=== PATIENT | female | born 1955 | race Caucasian/White ===

== ENCOUNTER → 2020-08-11 09:51 | Outpatient (BNVA) | payer OTHER, SELFPAY | PROVIDERS: PCP Nurse Practitioner Family; Visit Provider Nurse Practitioner Family | DX: I11.9 Hypertensive heart disease without heart failure (principal); R63.5 Abnormal weight gain; E66.01 Morbid (severe) obesity due to excess calories; Z68.42 Body mass index [BMI] 45.0-49.9, adult; I48.0 Paroxysmal atrial fibrillation; I70.0 Atherosclerosis of aorta; Z79.899 Other long term (current) drug therapy | CPT/HCPCS: 93005 ==

== ENCOUNTER 2020-09-21 10:37 | Outpatient (REF) | payer OTHER, SELFPAY ==
[2020-09-21 12:38] LABS: MANUAL DIFF FLAG NO
[2020-09-21 12:39] LABS: Basophils Percent Auto 0.6 % (0-2); Eosinophils Absolute Auto 0.1 X10*3/uL (0.0-0.4); Eosinophils Percent Auto 1.9 % (0-4); Hematocrit 42.4 % (37-47); Hemoglobin 14.3 g/dl (12.0-16.0); Imm Gran Abs Auto 0.02 X10*3/uL (0.00-0.03); Imm Gran Pct Auto 0.3 % (0.0-0.4); Lymphocytes Absolute Auto 1.9 X10*3/uL (1.2-4.9); Lymphocytes Percent Auto 25.8 % (20-40); Mean Corpuscular HGB Conc 33.7 g/dl (31.0-35.0); Mean Corpuscular Hemoglobin 29.9 pg (27.0-33.0); Mean Corpuscular Volume 88.5 fL (80-98); Mean Platelet Volume 10.9 fL (9.4-12.3); Monocytes Absolute Auto 0.6 X10*3/uL (0.1-1.2); Monocytes Percent Auto 8.5 % (2-11); Neutrophils Absolute Auto 4.6 X10*3/uL (2.0-8.3); Neutrophils Percent Auto 62.9 % (45-73); Platelet Count 230 X10*3/uL (160-400); Red Blood Count 4.79 X10*6/uL (4.20-5.50); Red Cell Distribution Width 12.5 % (11.0-16.0); White Blood Count 7.3 X10*3/uL (4.8-10.8)
[2020-09-21 13:53] LABS: Erythrocyte Sedimentation Rate 16 MM/HR (0-20)
== END 2020-09-21 10:38 | disposition home or self-care (01) ==
LOC: HO.LAB 10:37
PROVIDERS: PCP Nurse Practitioner Family; Visit Provider Hospitalist
DX: R06.00 Dyspnea, unspecified (principal)
CPT/HCPCS: 36415; 82785; 85025; 85652; 86003

== ENCOUNTER → 2020-10-07 13:18 | Outpatient (BNVA) | payer OTHER, SELFPAY | PROVIDERS: PCP Nurse Practitioner Family; Visit Provider Physician Assistant Medical | DX: Z76.89 Persons encountering health services in other specified circumstances (principal) | CPT/HCPCS: G0296 ==

== ENCOUNTER 2020-10-27 09:46 | Outpatient (REF) | payer OTHER, SELFPAY ==
--- NOTE | 2020-10-27 11:45 | PFT_ITS ---
Forced vital capacity, FEV1, [id number], and MVV are all normal. Post bronchodilator therapy, no significant change except for increased response to [id number]. Total lung capacity and residual volume normal. Diffusion capacity normal. CONCLUSION: Normal pulmonary function test. MD DANICA Millard/MODL / [id number]
== END 2020-10-27 09:47 | disposition home or self-care (01) ==
LOC: HO.RESP 09:46
PROVIDERS: Visit Provider Hospitalist
DX: R06.00 Dyspnea, unspecified (principal)
CPT/HCPCS: 94060; 94727; 94729

== ENCOUNTER 2020-10-31 07:20 | Outpatient (REF) | payer OTHER, SELFPAY ==
--- NOTE | ~2020-10-31 | CT_ITS ---
EXAMINATION: CT CHEST SCREENING CLINICAL INDICATION: Smoker. COMPARISON: None. TECHNIQUE: Multidetector volumetric CT imaging of the chest is performed without contrast using low-dose technique. Additional 2-D coronal and sagittal reformatted images and axial 3-D maximum intensity projection (MIP) images are generated on the CT workstation. This CT examination was performed using dose optimization techniques as appropriate, variously including the following: *Automated exposure control *Adjustment of mA and/or kV according to patient size (this includes techniques or standardized protocols for targeted exams where dose is matched to indication/reason for exam; i.e. extremities or head) *Use of iterative reconstruction technique DLP: 101 mGy-cm FINDINGS: LUNGS: The lungs are well expanded and clear of acute pneumonic consolidation. There is plate-like atelectasis in the superior segment of the left lower lobe. There is a 3 mm nodule adjacent to the major fissure in the right middle lobe on sagittal image 84/112, a 2 mm nodule right middle lobe axial image 257/6. MEDIASTINUM: The thyroid lobes are symmetrically normal. The central trachea and the bronchi are widely patent. The heart size and the great vessels are normal caliber. No abnormal size mediastinal lymph nodes seen. There is no pericardial effusion. PLEURA: There is no pleural effusion. No pleural mass or thickening. AXILLA: No lymphadenopathy. UPPER ABDOMEN: The visualized liver, spleen, pancreas, and adrenal glands are unremarkable. The gallbladder has been surgically removed. OSSEOUS STRUCTURES: There is mild spondylosis mid and lower dorsal spine. No lytic process. CT/CT lung screening IMPRESSION: Expanded lungs with at least 2 nodules seen in the right lower lobe and right middle lobe. ASSESSMENT: Lung-RADS category 2, Benign. RECOMMENDATION: Low-dose annual CT chest.
== END 2020-10-31 07:21 | disposition home or self-care (01) ==
LOC: HO.CT 07:20
PROVIDERS: Visit Provider Physician Assistant Medical
DX: Z12.2 Encounter for screening for malignant neoplasm of respiratory organs (principal); R91.8 Other nonspecific abnormal finding of lung field; Z87.891 Personal history of nicotine dependence
CPT/HCPCS: 71271

== ENCOUNTER 2021-06-28 08:50 | Emergency (ER) | payer OTHER, SELFPAY ==
--- NOTE | 2021-06-28 | ECG_ITS ---
Test Reason : CP Blood Pressure : / mmHG Vent. Rate : 071 BPM Atrial Rate : 071 BPM P-R Int : 148 ms QRS Dur : 072 ms QT Int : 390 ms P-R-T Axes : 044 -01 043 degrees QTc Int : 423 ms Normal sinus rhythm Low voltage QRS Possible Inferior infarct (cited on or before 08-MAY-2019) Cannot rule out Anteroseptal infarct (cited on or before 08-MAY-2019) Abnormal ECG When compared with ECG of 08-MAY-2019 17:06, No significant change was found Referred By: Generic ED Physician Electronically Signed By:MCKENNA MARES
--- NOTE | ~2021-06-28 | CT_ITS ---
EXAMINATION: CT ANGIOGRAM OF THE CHEST WITH AND WITHOUT CONTRAST (CT PULMONARY ANGIOGRAM FOR PE) CLINICAL INFORMATION: Pleuritic chest pain. Evaluate for a pulmonary embolism. COMPARISON: Chest radiograph done earlier the same day. CT chest dated 10/31/2020. TECHNIQUE: Prior to contrast administration, noncontrast localization images were obtained. Subsequently, multidetector volumetric imaging was performed from the thoracic inlet to below the diaphragms following the administration of 71 mL Omnipaque 350 intravenous contrast. No contrast reaction reported Sagittal, coronal, and MIP oblique sagittal reformatted images were obtained on the CT workstation, uploaded to PACS, and reviewed. This CT examination was performed using dose optimization techniques as appropriate, variously including the following: *Automated exposure control *Adjustment of mA and/or kV according to patient size (this includes techniques or standardized protocols for targeted exams where dose is matched to indication/reason for exam; i.e. extremities or head) *Use of iterative reconstruction technique Total exam dose-length product 555 mGy-cm FINDINGS: QUALITY OF STUDY/CONTRAST BOLUS: Satisfactory. PULMONARY ARTERIES: No central or segmental pulmonary emboli. THORACIC AORTA: No aneurysm or dissection. LUNG: Hypoinflation of the lungs with bilateral atelectasis. Stable linear scarring versus atelectasis within the posterior left lower lobe. No new large pulmonary nodule, mass, or airspace consolidation. PLEURA: No pleural effusion or pneumothorax. MEDIASTINUM: Normal heart size. No pericardial effusion. No hilar or mediastinal lymphadenopathy. No evidence of septal bowing or right heart strain. CHEST WALL/AXILLA: No axillary or internal mammary lymphadenopathy. OSSEOUS STRUCTURES: No acute or suspicious osseous abnormality. UPPER ABDOMEN: Status post cholecystectomy. Otherwise, the visualized upper abdominal structures are unremarkable. No reflux of contrast into the hepatic veins to suggest elevated right heart pressures. CT/CT angio chest PE protocol IMPRESSION: 1. No CT angiographic evidence of acute pulmonary embolism. 2. No new pulmonary nodule, mass, or airspace consolidation. Continued follow up as per screening criteria. 3. No lymphadenopathy. VTE: Negative.
--- NOTE | ~2021-06-28 | XR_ITS ---
EXAMINATION: XR CHEST CLINICAL INFORMATION: Posterior chest wall pain. COMPARISON: Most recent CT chest dated 10/31/2020 TECHNIQUE: Frontal view of the chest was obtained. FINDINGS: The lungs are clear. The cardiomediastinal silhouette is normal in size. There is no pleural effusion or pneumothorax. No acute osseous abnormality. XR/XR chest 1V IMPRESSION: No acute cardiopulmonary findings.
[2021-06-28 09:40] VITALS: BP 155/84; PULSE 71; RESP 16; TEMP 36.6; O2SAT 98; BMI 46.3
[2021-06-28 10:34] VITALS: BP 196/71; PULSE 65; RESP 10; O2SAT 98
[2021-06-28 11:00] LABS: MANUAL DIFF FLAG NO
[2021-06-28 11:01] LABS: Basophils Percent Auto 0.5 % (0-2); Eosinophils Absolute Auto 0.2 X10*3/uL (0.0-0.4); Eosinophils Percent Auto 2.5 % (0-4); Hemoglobin 14.8 g/dl (12.0-16.0); Imm Gran Abs Auto 0.02 X10*3/uL (0.00-0.03); Imm Gran Pct Auto 0.3 % (0.0-0.4); Lymphocytes Absolute Auto 1.9 X10*3/uL (1.2-4.9); Lymphocytes Percent Auto 31.8 % (20-40); Mean Corpuscular HGB Conc 34.4 g/dl (31.0-35.0); Mean Platelet Volume 10.4 fL (9.4-12.3); Monocytes Absolute Auto 0.4 X10*3/uL (0.1-1.2); Monocytes Percent Auto 6.5 % (2-11); Neutrophils Absolute Auto 3.5 X10*3/uL (2.0-8.3); Neutrophils Percent Auto 58.4 % (45-73); Platelet Count 208 X10*3/uL (160-400); Red Blood Count 4.94 X10*6/uL (4.20-5.50); Red Cell Distribution Width 12.8 % (11.0-16.0)
--- NOTE | 2021-06-28 11:06 | ED.CHESTPAIN ---
HPI - Chest Pain General Chief Complaint: Chest Pain Stated Complaint: chest pain Time Seen by Provider: 06/28/21 11:06 Source: patient Mode of arrival: ambulatory Limitations: no limitations History of Present Illness HPI narrative: Patient with upper left chest pain with deep inspiration. She became diahoretic. Patient has pain to left upper back with deep inspiration, She has a history of Atrial fibrillation on xarelto. Patient had echo and nuclear stress all told that she is normal MD complaint: other (pleuritic back pain) Onset (ago): hour(s) Timing of current episode: constant Prior episodes: No Onset: during rest Pain location: other (left back) Quality: sharp Related Data Home Medications Medication Instructions Recorded Confirmed escitalopram oxalate 20 mg tablet 20 mg PO DAILY 08/11/20 06/28/21 gabapentin 300 mg capsule 300 mg PO BEDTIME PRN 08/11/20 06/28/21 rivaroxaban 20 mg tablet 20 mg PO DAILY 08/11/20 06/28/21 cholecalciferol (vitamin D3) 250 250 mcg PO DAILY 09/21/20 06/28/21 mcg (10,000 unit) capsule multivitamin 1 tab PO DAILY 09/21/20 06/28/21 metoprolol succinate 25 mg 25 mg PO DAILY 06/28/21 06/28/21 tablet,extended release 24 hr Previous Rx's Medication Instructions Recorded levalbuterol tartrate 45 2 puff PO Q6H PRN 30 Days #15 g 10/27/20 mcg/actuation aerosol inhaler (Xopenex HFA) cyclobenzaprine 10 mg tablet 10 mg PO TID #10 tab 06/28/21 Allergies Allergy/AdvReac Type Severity Reaction Status Date / Time levofloxacin [From LEVAQUIN] Allergy Unknown SICK Verified 10/27/20 11:25 Review of Systems Constitutional: Constitutional: Reports no additional constitutional complaints Eyes: Eyes: Reports no additional eye complaints ENT: Denies dizziness Cardiovascular: Cardiovascular: Reports no additional cardiovascular complaints Respiratory: Respiratory: Reports as per HPI Gastrointestinal: Gastrointestinal: Reports no additional gastrointestinal complaints Genitourinary: Genitourinary: Reports no additional female genitourinary complaints Musculoskeletal: Musculoskeletal: Reports no additional musculoskeletal complaints Integumentary/Breasts: Skin/Breast: Denies rash Neurologic: Reports system reviewed and no additional complaints, except as documented, Denies dizziness and Denies Sensory deficit (Neuro) Psychiatric: Psychiatric: Denies anxiety [facility] Past Medical History Medical History Chronic allergic rhinitis Dyspnea HTN (hypertension) LVH (left ventricular hypertrophy) PAF (paroxysmal atrial fibrillation) Pulmonary nodules Smoking Thoracic aortic atherosclerosis Surgical History Hx of section Hx of cholecystectomy Hx of colonoscopy Family History Family History Father Sudden cardiac Mother Chronic a-fib Social History Social History Years Smoked: smokes marijuana, quit cigarettes former 1ppd smoker Advance Directives: No Physical Exam Vital Signs: Vital Signs: Last Vital Signs Temp 99.6 F 06/28/21 12:00 Pulse 61 06/28/21 12:00 Resp 16 06/28/21 12:00 BP 156/75 H 06/28/21 12:00 Pulse Ox 99 06/28/21 12:00 Body Mass Index 46.3 Const: General: healthy appearing Nutritional Appearance: obese Orientation/consciousness: oriented to person and patient oriented x3 Limitations: no limitations HENMT: Head: Yes normal to inspection Ears: external ears normal General nose exam: Normal external nose present Mouth: Normal oral and palatal mucosa present and oropharynx normal Throat: Yes posterior oropharynx normal Eyes: General: appearance normal, both eyes and all related structures Neck: Other: supple Neck: Yes normal visual inspection Chest: Chest palpation & inspection: normal inspection of the chest Resp: Auscultation: clear to auscultation bilaterally Cardio: Jugular venous distension: no JVD Rate: regular rate Rhythm: regular rhythm Heart sounds: S1 normal heart sound present and S2 normal heart sound present GI: Inspection: Yes normal to inspection Palpation (GI): Soft to palpation, nontender and No hepatosplenomegaly present Auscultation: normal bowel sounds : General: Yes no CVA tenderness Back/Spine/Pelvis: Back: no CVA tenderness Skin: General skin exam: no rashes or lesions noted Neuro: General: oriented to person and patient oriented x3 Cranial nerves: Yes CN's II-XII intact bilaterally Motor exam (neuro): 5/5 motor strength present throughout Sensory Exam: No Sensory deficit (Neuro) Extrem: General: Yes normal to inspection Psych: Appearance: grossly normal Course Reevaluation(s) Reevaluation #1: patient with upper right posterior back pain, EKG, CXR, CTA all negative will start patient on flexeril for muscular back pain Time: 13:34 MDM - Chest Pain Lab Data Result diagrams: 06/28/21 10:53 06/28/21 10:53 Labs: Lab Results 06/28/21 06/28/21 06/28/21 Range/Units 10:53 10:53 10:53 WBC 6.0 (4.8-10.8) X10*3/uL RBC 4.94 (4.20-5.50) X10*6/uL Hgb 14.8 (12.0-16.0) g/dl Hct 43.0 (37-47) % MCV 87.0 (80-98) fL MCH 30.0 (27.0-33.0) pg MCHC 34.4 (31.0-35.0) g/dl RDW 12.8 (11.0-16.0) % Plt Count 208 (160-400) X10*3/uL MPV 10.4 (9.4-12.3) fL Immature Gran % (Auto) 0.3 (0.0-0.4) % Neut % (Auto) 58.4 (45-73) % Lymph % (Auto) 31.8 (20-40) % [place] % (Auto) 6.5 (2-11) % Eos % (Auto) 2.5 (0-4) % Baso % (Auto) 0.5 (0-2) % Lymph # (Auto) 1.9 (1.2-4.9) X10*3/uL [place] # (Auto) 0.4 (0.1-1.2) X10*3/uL Eos # (Auto) 0.2 (0.0-0.4) X10*3/uL Baso # (Auto) 0.0 (0.0-0.2) X10*3/uL Abs Immat Gran (auto) 0.02 (0.00-0.03) X10*3/uL Absolute Neuts (auto) 3.5 (2.0-8.3) X10*3/uL Absolute Nucleated RBC 0.000 (0.0-0.012) X10*3/uL Nucleated RBC % (auto) 0.0 (0.0-0.2) /100WBC PT (9.9-13.0) SEC INR (0.9-1.1) Sodium 141 (135-145) mmol/L Potassium 5.1 (3.3-5.1) mmol/L Chloride 104 (96-108) mmol/L Carbon Dioxide 29 (22-29) mmol/L Anion Gap 13 (12-20) BUN 18 H (9-16) mg/dL Creatinine 0.84 (0.5-1.4) mg/dL Estim Creat Clear Calc 88.5 Estimated GFR > 60 Random Glucose 120 H (60-115) mg/dL Calcium 9.7 (8.4-10.2) mg/dL Troponin I High Sens (<3.5-17.0) ng/L COVID-19 (GURDEEP) Negative (Negative) COVID-19 Clin Com See Note 06/28/21 06/28/21 Range/Units 10:53 10:53 WBC (4.8-10.8) X10*3/uL RBC (4.20-5.50) X10*6/uL Hgb (12.0-16.0) g/dl Hct (37-47) % MCV (80-98) fL MCH (27.0-33.0) pg MCHC (31.0-35.0) g/dl RDW (11.0-16.0) % Plt Count (160-400) X10*3/uL MPV (9.4-12.3) fL Immature Gran % (Auto) (0.0-0.4) % Neut % (Auto) (45-73) % Lymph % (Auto) (20-40) % [place] % (Auto) (2-11) % Eos % (Auto) (0-4) % Baso % (Auto) (0-2) % Lymph # (Auto) (1.2-4.9) X10*3/uL [place] # (Auto) (0.1-1.2) X10*3/uL Eos # (Auto) (0.0-0.4) X10*3/uL Baso # (Auto) (0.0-0.2) X10*3/uL Abs Immat Gran (auto) (0.00-0.03) X10*3/uL Absolute Neuts (auto) (2.0-8.3) X10*3/uL Absolute Nucleated RBC (0.0-0.012) X10*3/uL Nucleated RBC % (auto) (0.0-0.2) /100WBC PT 11.5 (9.9-13.0) SEC INR 1.0 (0.9-1.1) Sodium (135-145) mmol/L Potassium (3.3-5.1) mmol/L Chloride (96-108) mmol/L Carbon Dioxide (22-29) mmol/L Anion Gap (12-20) BUN (9-16) mg/dL Creatinine (0.5-1.4) mg/dL Estim Creat Clear Calc Estimated GFR Random Glucose (60-115) mg/dL Calcium (8.4-10.2) mg/dL Troponin I High Sens 3.7 (<3.5-17.0) ng/L COVID-19 (GURDEEP) (Negative) COVID-19 Clin Com Imaging Data Chest x-ray: Radiologist's impression: FINDINGS: The lungs are clear. The cardiomediastinal silhouette is normal in size. There is no pleural effusion or pneumothorax. No acute osseous abnormality. XR/XR chest 1V IMPRESSION: No acute cardiopulmonary findings. Discharge Plan Discharge Clinical Impression: Atypical chest pain Back pain Qualifiers: Back pain location: thoracic back pain Chronicity: acute Back pain laterality: right Qualified Code(s): M54.6 - Pain in thoracic spine Patient Disposition: Home, Self-Care Instructions: Back Pain (ED), Noncardiac Chest Pain (ED) Prescriptions: New cyclobenzaprine 10 mg tablet 10 mg PO TID Qty: 10 RF: 0 No Action metoprolol succinate 25 mg tablet extended release 24 hr 25 mg PO DAILY RF: 0 cholecalciferol (vitamin D3) 250 mcg (10,000 unit) capsule 250 mcg PO DAILY RF: 0 multivitamin Tablet 1 tab PO DAILY RF: 0 levalbuterol tartrate [Xopenex HFA] 45 mcg/actuation HFA aerosol inhaler 2 puff PO Q6H PRN (Reason: shortness of breath or wheezing) 30 Days Qty: 15 RF: 11 Xarelto 20 mg tablet 20 mg PO DAILY RF: 0 gabapentin 300 mg capsule 300 mg PO BEDTIME PRN (Reason: Insomnia) RF: 0 escitalopram oxalate 20 mg tablet 20 mg PO DAILY RF: 0 Referrals: Melissa Chaney, TRACK VEHICLE REPAIRER [Primary Care Provider] - 1 week
[2021-06-28 11:07] LABS: Prothrombin Time 11.5 SEC (9.9-13.0)
[2021-06-28 11:17] LABS: COVID-19 Test Negative (Negative); IDNOW Serial# 9DD0AD1C
[2021-06-28 11:21] LABS: Anion Gap 13 (12-20); Blood Urea Nitrogen 18 mg/dL (9-16); Calcium 9.7 mg/dL (8.4-10.2); Carbon Dioxide 29 mmol/L (22-29); Chloride 104 mmol/L (96-108); Creatinine Clr Calc Pharmacy 88.5; Estimated Glomerular Filt Rate > 60; Glucose Random 120 mg/dL (60-115); Potassium 5.1 mmol/L (3.3-5.1); Sodium 141 mmol/L (135-145)
[2021-06-28 11:28] LABS: Troponin-I High Sensitivity 3.7 ng/L (<3.5-17.0)
[2021-06-28 12:00] VITALS: BP 156/75; PULSE 61; RESP 16; TEMP 37.6; O2SAT 99
[2021-06-28] MEDS: iohexoL 350 MG/ML 100 ML INFUS..BTL IV (12:05)
--- NOTE | 2021-06-28 13:22 | PHA.MEDREC ---
Pharmacy Consult ? Medication Reconciliation Pharmacy has completed the medication reconciliation. Patient report using gabapentin as needed for sleep, this was last filled in December. Pascale Heller, MyronD
== END 2021-06-28 13:54 | disposition home or self-care (01) ==
PROVIDERS: Emergency Provider Emergency Medicine; PCP Nurse Practitioner Family
DX: R07.89 Other chest pain (principal); M54.6 Pain in thoracic spine; I10 Essential (primary) hypertension; I48.0 Paroxysmal atrial fibrillation; Z79.01 Long term (current) use of anticoagulants; Z79.899 Other long term (current) drug therapy; Z20.822 Contact with and (suspected) exposure to COVID-19
CPT/HCPCS: 36415; 71045; 71275; 80048; 84484; 85025; 85610; 87635; 93005; 99284; Q9967

== ENCOUNTER → 2021-07-07 08:58 | Outpatient (BNVA) | payer OTHER, SELFPAY | PROVIDERS: PCP Nurse Practitioner Family; Visit Provider Hospitalist | DX: R06.00 Dyspnea, unspecified (principal); J45.909 Unspecified asthma, uncomplicated; F17.200 Nicotine dependence, unspecified, uncomplicated ==

== ENCOUNTER → 2021-08-10 08:46 | Outpatient (BNVA) | payer OTHER, SELFPAY | PROVIDERS: PCP Nurse Practitioner Family; Visit Provider Internal Medicine Cardiovascular Disease ==

== ENCOUNTER → 2021-11-14 09:00 | Outpatient (REF) | payer OTHER, SELFPAY ==
--- NOTE | 2021-11-14 09:03 | CA_ITS ---
Transthoracic Echocardiogram Patient (Last, First, Middle): Jocelyne, Gender: Female Date of : 1955 Age: 66 Procedure Date: 11/14/2021 Procedure Type: Transthoracic Echocardiogram Location: OP Height: 160.02 cm Weight: 129.28 kg BSA: 2.25 m2 Heart Rate: bpm BP: 120 / 80 mmHg Osteologist: Referring MD: Foster Nichole MD Symptoms: I48.0 - Paroxysmal atrial fibrillation Study Quality: Fair ECG Rhythm: Sinus Conclusions: - The left ventricular systolic function is normal. The calculated ejection fraction is 62% by biplane method. - E/E prime ratio is >15, consistent with elevated filling pressures. Evidence suggests grade I (mild) diastolic dysfunction. - There is mild calcification of the aortic valve. Findings Left Ventricle Normal left ventricular cavity size. There is mildly increased left ventricular wall thickness. The left ventricular systolic function is normal. The calculated ejection fraction is 62% by biplane method. There is no evidence of regional wall motion abnormalities. E/E prime ratio is >15, consistent with elevated filling pressures. Evidence suggests grade I (mild) diastolic dysfunction. Right Ventricle Normal right ventricular cavity size and systolic function. Atria Both atria are normal in size. Aortic Valve There is a normal trileaflet aortic valve. There is mild calcification of the aortic valve. There is no aortic valve stenosis. There is no aortic valve regurgitation. Mitral Valve There is mild anterior mitral leaflet thickening. There is no mitral valve regurgitation. There is no mitral valve stenosis. Pulmonic Valve The pulmonic valve was not well visualized. Tricuspid Valve The tricuspid valve was not well visualized. There is no tricuspid valve regurgitation. Tricuspid regurgitation envelope is inadequate for calculation of right ventricular systolic pressure. Great Vessels The aortic annulus, sinuses of valsalva, and asc aorta are normal in size. Venous The inferior vena cava is normal in size and collapses greater than 50% with inspiration. Pericardium/Pleural There is no evidence of pericardial effusion. Prior Study Comparison Changes noted compared to prior study dated: 12/10/2018. LV filling pressures higher. Measurements 2D Linear Measurements IVSd: 1.12 0.6-0.9/0.6-1.0 cm LVIDd: 5.16 3.9-5.3/4.2-5.9 cm LVIDd Index: 2.29 2.4-3.2/2.2-3.1 cm/m2 LVIDs: 3.04 2.0-3.6 cm LVPWd: 1.01 0.7-1.1 cm Ao Root: 3.40 2.1-3.5 cm LA Diam: 4.30 2.7-3.8/3.0-4.0 cm LAIDs Index: 1.91 1.5-2.3 cm/m2 LV Mass: 260.03 67-162/88-224 g LV Mass Index: 115.57 43-95/49-115 g/m2 LVOT Diam: 2.30 3.0+(-)1.3 cm 2D Systolic Function EF 4C: 56.10 >55% EF 2C: 67.40 >55% EF BiP: 61.80 >55% Mitral Valve MV Pk E: 0.75 MV PK A: 0.82 MV Decel Time: 257.00 E/A: 0.90 E'Lateral: 4.03 E'Medial: 4.57 E/E' Med: 16.30 E/E' Lat: 18.50 PHT: 75.00 MVA PHT: 2.93 Decel [place]: 2.90 Aortic Valve AoV Pk Sam: 1.27 AoV Mn Sam: 0.69 AoV VTI: 0.24 AoV Pk Grad: 6.00 Aov Mn Grad: 2.00 KOBI Cont.VTI: 3.36 LVOT LVOT Pk Sam: 0.77 LVOT Mn Sam: 0.54 LVOT VTI: 0.19 LVOT Pk Grad: 2.00 LVOT Mn Grad: 1.00 LVOT Diam: 2.30 LVOT Area: 4.15 Diastolic Function MV Pk E: 0.75 MV Pk A: 0.82 E/A: 0.90 E'Medial: 4.57 E/E' Med: 16.30 E' Laterial: 4.03 E/E' Lat: 18.50 Right Ventricle TAPSE (mm): 35.00 TVS' Sam: 14.00 Great Vessels Aorta Ao Root-2D: 3.40 2.0-3.7 cm Ao Asc: 3.40 2.1-3.4 cm Pulmonary Valve PV Pk Sam: 0.91 Peak PV Grad: 3.00 Updated in Other Vendor System with Status of Final Benny Carlson MD electronically signed on 11/14/2021 11:58:16 AM with status of Final
== END ==
LOC: HO.CARD 09:00
PROVIDERS: Visit Provider Internal Medicine Cardiovascular Disease
DX: I48.0 Paroxysmal atrial fibrillation (principal)
CPT/HCPCS: 93306

== ENCOUNTER → 2021-11-22 08:35 | Outpatient (BNVA) | payer OTHER, SELFPAY | PROVIDERS: PCP Nurse Practitioner Family; Visit Provider Internal Medicine Cardiovascular Disease ==

== ENCOUNTER 2022-06-13 09:39 | Outpatient (REF) | payer OTHER, SELFPAY ==
[2022-06-13 11:09] LABS: MANUAL DIFF FLAG NO
[2022-06-13 11:27] LABS: Basophils Absolute Auto 0.1 X10*3/uL (0.0-0.2); Basophils Percent Auto 0.7 % (0-2); Eosinophils Absolute Auto 0.1 X10*3/uL (0.0-0.4); Eosinophils Percent Auto 1.7 % (0-4); Hematocrit 42.8 % (37.0-47.0); Hemoglobin 14.6 g/dl (12.0-16.0); Imm Gran Abs Auto 0.02 X10*3/uL (0.00-0.03); Imm Gran Pct Auto 0.3 % (0.0-0.4); Lymphocytes Absolute Auto 1.8 X10*3/uL (1.2-4.9); Lymphocytes Percent Auto 26.7 % (20-40); Mean Corpuscular HGB Conc 34.1 g/dl (31.0-35.0); Mean Corpuscular Hemoglobin 29.8 pg (27.0-33.0); Mean Corpuscular Volume 87.3 fL (80.0-98.0); Monocytes Absolute Auto 0.4 X10*3/uL (0.1-1.2); Monocytes Percent Auto 5.1 % (2-11); Neutrophils Absolute Auto 4.5 x10*3/uL (2.0-8.3); Neutrophils Percent Auto 65.5 % (45-73); Platelet Count 246 X10*3/uL (160-400); Red Cell Distribution Width 12.7 % (11.0-16.0); White Blood Count 6.9 X10*3/uL (4.8-10.8)
== END 2022-06-13 09:40 | disposition home or self-care (01) ==
LOC: HO.HMGCLDS 09:39
PROVIDERS: PCP Nurse Practitioner Family; Visit Provider Nurse Practitioner Family
DX: H92.01 Otalgia, right ear (principal); R05.9 Cough, unspecified
CPT/HCPCS: 36415; 85025

== ENCOUNTER → 2022-06-27 09:03 | Outpatient (BNVA) | payer MEDICARE, SELFPAY | PROVIDERS: PCP Nurse Practitioner Family; Visit Provider Hospitalist | DX: R91.8 Other nonspecific abnormal finding of lung field (principal); R06.00 Dyspnea, unspecified; U09.9 Post COVID-19 condition, unspecified; J30.9 Allergic rhinitis, unspecified | CPT/HCPCS: 99212 ==

== ENCOUNTER 2022-07-17 12:55 | Outpatient (REF) | payer MEDICARE, SELFPAY ==
--- NOTE | ~2022-07-17 | CT_ITS ---
EXAMINATION: CT CHEST SCREENING CLINICAL INFORMATION: Former smoker. Quit 30 years ago. 30 pack year history. COMPARISON: Previous chest CT most recent June 2021 TECHNIQUE: Multidetector volumetric CT imaging of the chest is performed without contrast using low dose technique. Additional 2D coronal and sagittal reformatted images and axial 3D maximum intensity projection (MIP) images are generated on the CT workstation. This CT examination was performed using dose optimization techniques as appropriate, variously including the following: *Automated exposure control *Adjustment of mA and/or kV according to patient size (this includes techniques or standardized protocols for targeted exams where dose is matched to indication/reason for exam; i.e. extremities or head) *Use of iterative reconstruction technique DLP: 100 mGy-cm FINDINGS: LUNGS: There is elevation of the right hemidiaphragm. There is chronic scarring or subsegmental atelectasis in the left lower lobe that appears unchanged. There is a 3 mm right upper lobe nodule axial image 146 series 5. This is unchanged from June 2021 chest CTA axial image 105 series 7. Evaluation of the lung bases is limited due to respiratory motion artifact. There is question of 2 nodules at the right lung base questionable in the right middle lobe measuring approximately 2 and 4 mm axial image 243 series 5. These probably are seen chest CTA June 2021 axial image 176 series 7 and appear unchanged. MEDIASTINUM: The mediastinum is normal. CORONARY ARTERY CALCIFICATION: Mild PLEURA: There is no pleural effusion. No pleural mass or thickening. AXILLA: No lymphadenopathy. UPPER ABDOMEN: Enlarged fatty liver. Postcholecystectomy. OSSEOUS STRUCTURES: Degenerative changes of the spine. CT/CT lung screening IMPRESSION: Limited exam due to respiratory motion artifact. Stable small pulmonary nodules. Stable stable scarring or chronic subsegmental atelectasis in the left lower lobe. Mild coronary artery calcification. Elevated right hemidiaphragm. Enlarged fatty liver. ASSESSMENT: Lung-RADS category 2: Benign RECOMMENDATION: Annual low-dose chest CT follow-up recommended.
== END 2022-07-17 12:56 | disposition home or self-care (01) ==
LOC: HO.CT 12:55
PROVIDERS: Visit Provider Physician Assistant Medical
DX: Z12.2 Encounter for screening for malignant neoplasm of respiratory organs (principal); Z87.891 Personal history of nicotine dependence
CPT/HCPCS: 71271

== ENCOUNTER → 2023-01-18 09:16 | Outpatient (BNVA) | payer MEDICARE, SELFPAY | PROVIDERS: PCP Nurse Practitioner Family; Visit Provider Hospitalist | DX: R91.8 Other nonspecific abnormal finding of lung field (principal); J30.9 Allergic rhinitis, unspecified; R06.00 Dyspnea, unspecified | CPT/HCPCS: 99212 ==

== ENCOUNTER 2023-04-25 12:25 | Outpatient (AMB) | payer MEDICARE, SELFPAY ==
[2023-04-25 12:47] VITALS: BP 122/80; PULSE 70; BMI 49.2
--- NOTE | 2023-04-25 12:47 | A.OFFVIS_ITS ---
Intake Vital Signs 04/25/23 12:47 Height 5 ft 4 in Weight 286 lb 9.615 oz BMI 49.2 BP 122/80 Blood Pressure Location Lt brachial Position Sitting Pulse 70 Intake Visit Reasons: 1 year follow up Intake Note: 1 year follow-up with ekg feeling good Social Worker Assistant Required: No Allergies levofloxacin [From LEVAQUIN] Allergy (Severe, Verified 01/18/23 09:26) SICK Medication List - Last Reconciled 04/25/23 by Foster Nichole MD amoxicillin 1,000 mg PO BID cholecalciferol (vitamin D3) 125 mcg PO DAILY escitalopram oxalate 5 mg PO DAILY gabapentin mg PO lamotrigine 50 mg PO DAILY losartan 50 mg PO DAILY multivitamin 1 tab PO DAILY rivaroxaban 20 mg PO DAILY HPI HPI Comments History of Present Illness Details Jocelyne comes for follow-up. Patient has no recurrent episode of atrial fibrillation. Her blood pressures been very well controlled on current medical therapy. She says she has no new symptoms. Goes to gym on a regular basis. Denies any orthopnea, PND, leg edema. Echocardiogram had in the past showed LVH with diastolic dysfunction related hypertensive heart disease. 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 Pulmonary nodules Smoking Thoracic aortic atherosclerosis Surgical History Hx of section Hx of cholecystectomy Hx of colonoscopy Family History Father Sudden cardiac Mother Chronic a-fib Social History Patient Tobacco Use Status: Former Tobacco user Tobacco use type: Cigarette Years Smoked: smokes marijuana, quit cigarettes former 1ppd smoker-15 Years Review of Systems Const Denies chills, Denies fatigue, Denies fever(s), Denies frequent falls, Denies weakness, Denies weight gain and Denies weight loss ENT Denies dizziness Card Denies chest pain, Denies leg edema, Denies lightheadedness, Denies palpitations, Denies dyspnea, Denies dyspnea on exertion, Denies orthopnea and Denies other (loss of consciousness) Resp Denies cough, Denies dyspnea and Denies dyspnea on exertion GI Denies hematochezia and Denies change in stool character Musc Denies abnormal gait, Denies muscle weakness, Denies numbness, Denies radiating pain into limb and Denies tingling Neuro Denies abnormal gait, Denies dizziness, Denies frequent falls, Denies numbness, Denies tingling and Denies weakness Endo Denies fatigue and Denies palpitations Physical Exam Vital Signs: Last Vital Signs Pulse 70 04/25/23 12:47 BP 122/80 04/25/23 12:47 BMI result Body Mass Index 49.2 Const General: cooperative, comfortable and no acute distress Nutritional Appearance: obese morbidly obese Orientation/consciousness: patient oriented x3 Limitations: no limitations Neck Neck: Yes trachea midline, Yes supple and Yes no JVD Resp Effort & Inspection: normal respiratory effort Auscultation: clear to auscultation bilaterally, no crackles, no rales, no rhonchi and no wheezes Cardio Rate: regular rate Rhythm: regular rhythm Heart sounds: S1 normal heart sound present, S2 normal heart sound present, no gallops, no murmurs and no rubs GI Inspection: Yes normal to inspection Skin General skin exam: no rashes or lesions noted Neuro General: patient oriented x3 Extrem General: Yes normal to inspection, No no pedal edema and No calf tenderness Office Procedures EKG Details: EKG today shows normal sinus rhythm with low-voltage QRS with poor R-wave progression most likely due to body habitus [id number], Complete Assessment & Plan Assessment & Plan (1) PAF (paroxysmal atrial fibrillation): Code(s): I48.0 - Paroxysmal atrial fibrillation Plan: Highly symptomatic paroxysmal atrial fibrillation without any obvious clinical recurrence at this point time. She is currently not on any rate lowering or antiarrhythmic drug therapy. However she would benefit from rhythm control approach will continue to pursue rhythm control approach. Continue participate in risk factor modification including aggressive weight loss program as well as good control blood pressure. Blood pressure is currently well optimized. See below. Continue full oral anticoagulation, currently on Xarelto 20 mg daily. Semi annual renal function test should be pursued. (2) HTN (hypertension): Code(s): I10 - Essential (primary) hypertension Plan: Hypertension which has remained extremely well optimized on losartan therapy. Continue the same. Importance of good blood pressure control was discussed. She does have evidence of hypertensive heart disease but without any evidence of clinical congestive heart failure. Low-salt diet was discussed. Participate in regular physical activity and weight loss program. Will follow up in the clinic as need be as patient is moving away. Coding Level of Care Code Est Pt Level 4 (93104) Diagnoses PAF (paroxysmal atrial fibrillation) I48.0 HTN (hypertension) I10 CPT Codes EKG - CPT: [id number], Complete ([id number])
== END 2023-04-25 14:29 | disposition home or self-care (01) ==
PROVIDERS: PCP Nurse Practitioner Family; Referring Provider Nurse Practitioner Family; Visit Provider Internal Medicine Cardiovascular Disease
DX: I48.0 Paroxysmal atrial fibrillation (principal); I10 Essential (primary) hypertension
CPT/HCPCS: 93010; 99214

== ENCOUNTER → 2023-04-25 12:25 | Outpatient (BNVA) | payer MEDICARE, SELFPAY | PROVIDERS: PCP Nurse Practitioner Family; Referring Provider Nurse Practitioner Family; Visit Provider Internal Medicine Cardiovascular Disease | DX: I48.0 Paroxysmal atrial fibrillation (principal); I10 Essential (primary) hypertension | CPT/HCPCS: 93005; 99212 ==

== ENCOUNTER 2025-07-08 22:15 | Emergency (ER) | payer OTHER, SELFPAY ==
--- NOTE | 2025-07-08 | ECG_ITS ---
Test Reason : REPEAT ?AFIB Blood Pressure : */* mmHG Vent. Rate : 112 BPM Atrial Rate : 113 BPM P-R Int : 120 ms QRS Dur : 82 ms QT Int : 322 ms P-R-T Axes : * -8 109 degrees QTcB Int : 439 ms Sinus tachycardia Low voltage QRS Inferior infarct (cited on or before 08-May-2019) Cannot rule out Anteroseptal infarct (cited on or before 08-May-2019) Abnormal ECG When compared with ECG of 08-Jul-2025 22:19, Sinus rhythm has replaced Junctional rhythm Referred By: Generic ED Physician Electronically Signed By: Rao Juarez
--- NOTE | 2025-07-08 22:17 | ECG_ITS ---
Test Reason : ?AFIB Blood Pressure : */* mmHG Vent. Rate : 112 BPM Atrial Rate : * BPM P-R Int : * ms QRS Dur : 80 ms QT Int : 346 ms P-R-T Axes : * 12 91 degrees QTcB Int : 472 ms Accelerated Junctional rhythm with occasional Premature ventricular complexes Low voltage QRS Inferior infarct Cannot rule out Anteroseptal infarct Abnormal ECG When compared with ECG of 28-Jun-2021 08:57, Significant changes have occurred Referred By: Generic ED Physician Electronically Signed By: Rao Juarez
[2025-07-08 22:40] VITALS: BP 148/78; PULSE 85; RESP 12; TEMP 36.9; O2SAT 95; BMI 45.5
--- NOTE | 2025-07-08 22:52 | ED.ARRPALP ---
HPI - Arrhythmia/Palpitations General Chief Complaint: Arrhythmia/Palpitations Stated Complaint: afib. high bp Time Seen by Provider: 07/08/25 22:35 Source: patient Mode of arrival: ambulatory Limitations: no limitations History of Present Illness ED Provider: Dr. Stacia Velásquez HPI narrative: Patient comes to the emergency room complaining of feeling a lot of stress and palpitations that started a proximally 4 hours ago. Patient states that she has no shortness of breath or chest pain. Patient states that she has a weird sensation in her throat, not exactly pain. Patient states it started 24 hours after getting her flu shot. Patient denies fever chills. Patient tearful, states that she has been going through ?a lot? for the last 2 years. Patient tearful due to family problems, complaining that her family moved away from her and do not want to have any contact with her. Patient reports being compliant with propranolol and Xarelto for AFib. Related Data Home Medications ?Medication ?Instructions ?Recorded ?Confirmed rivaroxaban 20 mg tablet 20 mg PO DAILY 08/11/20 04/25/23 multivitamin 1 tab PO DAILY 09/21/20 04/25/23 cholecalciferol (vitamin D3) 125 125 mcg PO DAILY 06/27/22 04/25/23 mcg (5,000 unit) capsule amoxicillin 500 mg capsule 1,000 mg PO BID 01/18/23 04/25/23 gabapentin 300 mg capsule mg PO 01/18/23 04/25/23 lamotrigine 25 mg tablet 50 mg PO DAILY 01/18/23 04/25/23 losartan 50 mg tablet 50 mg PO DAILY 01/18/23 04/25/23 escitalopram oxalate 10 mg tablet 5 mg PO DAILY 04/25/23 04/25/23 Allergies Allergy/AdvReac Type Severity Reaction Status Date / Time levofloxacin (From LEVAQUIN) Allergy Severe SICK Verified 07/08/25 22:50 Review of Systems Review of Systems: Constitutional : No Weight loss, No Fever, No Chills, No Night Sweats, No Fatigue, No Malaise ENT/Mouth : No Hearing loss, No Ear Pain, No Nasal Congestion, No Sinus Pain, No Hoarseness, complaining of throat dryness without significant pain/ sore throat, No Rhinorrhea, No Swallowing Difficulty Eyes: No Eye Pain, No Swelling, No Redness, No Foreign Body, No Discharge, No Vision Changes Cardiovascular : No Chest Pain, No SOB, No Dyspnea on Exertion, No Orthopnea, No Edema, complaining of Palpitations Respiratory : No Cough, No Sputum, No Wheezing, No Smoke Exposure, No Dyspnea Gastrointestinal : No Nausea, No Vomiting, No Diarrhea, No Constipation, No abdominal Pain, No Hematochezia, No Melena Genitourinary : no irregular bleeding, No Dysuria, No Urinary Frequency, No Hematuria, No Urinary Incontinence, No Urgency, No Flank Pain, No Urinary Flow Changes, No Hesitancy Musculoskeletal : No joint pain, No Myalgias, No Joint Swelling Skin : No Skin Lesions, No rash Neuro : No Weakness, No Numbness, No Paresthesias, No Loss of Consciousness, No Dizziness, No Headache Psych : No Anxiety/Panic, No Depression, No SI/HI/AH/VH, No Social Issues, Heme/Lymph: No Bruising, No Bleeding,No Lymphadenopathy Endocrine : No Polyuria, No Polydipsia, No Temperature Intolerance PMFSH Past Medical History Medical History 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 Smoking Chronic allergic rhinitis Pulmonary nodules Dyspnea LVH (left ventricular hypertrophy) Thoracic aortic atherosclerosis PAF (paroxysmal atrial fibrillation) HTN (hypertension) Surgical History Hx of section Hx of cholecystectomy Hx of colonoscopy Family History Family History Father Sudden cardiac Mother Chronic a-fib Social History Social History Patient Tobacco Use Status: Former Tobacco user Tobacco use type: Cigarette Years Smoked: smokes marijuana, quit cigarettes former 1ppd smoker-15 Years Advance Directives: Yes Advance Directives Information Provided: Yes Advance Directives on File: No Do you have a plan to hurt others: No Plan Physical Exam Exam: Exam: Appearance: Alert. Oriented X3. No acute distress. Tearful Eyes: Pupils equal, round and reactive to light. ENT: Pharynx normal. Neck: Normal inspection. Neck supple. No lymph nodes noted. No crepitus CVS: Normal heart rate and rhythm. Pulses normal. Normal S1 and S2 Respiratory: No respiratory distress. Breath sounds normal. No Wheezing. No rales Abdomen: Soft and nontender. No rigidity. No distention. Skin: Skin warm and dry. Normal skin color. Normal skin turgor. Extremities: No lower extremity edema. No Lacerations. No Rash Neuro: Oriented X 3. No motor deficit. No sensory deficit. Moving all extremities. No slurred speech. CN 2 through 12 grossly intact Psych: calm, cooperative, a bit anxious, tearful, sharing her family problems Vital Signs: Vital Signs: Last Vital Signs Temp 98.4 F 07/08/25 22:40 Pulse 85 07/08/25 22:40 Resp 12 07/08/25 22:40 BP 148/78 H 07/08/25 22:40 Pulse Ox 95 07/08/25 22:40 O2 Del Method Room Air 07/08/25 22:40 BMI result Body Mass Index 45.5 Course Course Course Narrative: Patient comes to the emergency room complaining of anxiety, palpitations. Denies chest pain or shortness of breath. Patient started having slight throat discomfort, no pain, more like a dry sensation 24 hours after her flu shot. Denies URI symptoms Medications Administered Discontinued Medications Generic Name Dose Route Start Last Admin Trade Name Alexandre PRN Reason Stop Dose Admin Aspirin 325 mg 07/08/25 22:51 07/08/25 23:06 Aspirin Enteric Coated 325 Mg Tablet. PO 07/08/25 22:52 325 mg ONCE ONE Administration Lorazepam 1 mg 07/08/25 22:52 07/08/25 23:07 Lorazepam 1 Mg Tablet PO 07/08/25 22:53 1 mg ONCE ONE Administration Medical Decision Making Medical Decision Making [facility] Narrative: My interpretation of EKG: Atrial flutter, heart rate 112, no ST segment depression or elevation, no T-wave inversion, QTC 439. -of note, they kg was read twice as acute STEMI. However, I do not see a STEMI in the EKGs. I consulted Dr. Juarez from Cardiology, no STEMI -other than occasional palpitations, patient denies chest pain, heaviness or shortness of breath. Patient is prophylactically receiving a dose of aspirin and a dose of p.o. Ativan for anxiety All of patient's labs pending. I discussed the above-mentioned with the patient My interpretation of labs: No significant abnormality in patient's hematology or chemistry, troponin within normal limits, pro BNP 213, negative. Serology negative for COVID or influenza. After the above-mentioned medications, patient calm, cooperative, vitals stable, patient playing on her phone. Discussed with the patient that at 01:00, a proximally 2 hours after the initial blood drawn, she will need a repeat troponin level and EKG I was informed by the patient's nurse that the patient decided that she no longer wanted to wait , became upset for unclear reason, pt started walking out of the emergency room with her IV, needed to be stopped by security, patient got into an argument with security, beligerent with nursing staff, patient refused to wait to sign AMA papers. Patient's nurse and charge nurse were able to remove the IV was removed and patient left Differential Diagnosis Differential Diagnoses: The differential diagnosis associated with the presentation includes (Acute coronary syndrome, Atypical chest pain, atrial flutter, atrial fibrillation) Admission/Observation Consideration of admission/observation: Escalation of care including admission/observation considered (Given patient's age, symptoms and past medical history observation was considered) Lab Data MDM Lab Attestation statement: I reviewed the patient's lab results. 07/08/25 22:56 07/08/25 22:56 Labs: Lab Results 07/08/25 Range/Units 22:56 WBC 7.4 (4.8-10.8) X10*3/uL RBC 5.01 (4.20-5.50) X10*6/uL Hgb 15.1 (12.0-16.0) g/dl Hct 42.8 (37.0-47.0) % MCV 85.4 (80.0-98.0) fL MCH 30.1 (27.0-33.0) pg MCHC 35.3 H (31.0-35.0) g/dl RDW 12.1 (11.0-16.0) % Plt Count 231 (160-400) X10*3/uL MPV 10.3 (9.4-12.3) fL Immature Gran % (Auto) 0.3 (0.0-0.4) % Neut % (Auto) 51.5 (45-73) % Lymph % (Auto) 35.7 (20-40) % [place] % (Auto) 9.0 (2-11) % Eos % (Auto) 3.0 (0-4) % Baso % (Auto) 0.5 (0-2) % Lymph # (Auto) 2.7 (1.2-4.9) X10*3/uL [place] # (Auto) 0.7 (0.1-1.2) X10*3/uL Eos # (Auto) 0.2 (0.0-0.4) X10*3/uL Baso # (Auto) 0.0 (0.0-0.2) X10*3/uL Abs Immat Gran (auto) 0.02 (0.00-0.03) X10*3/uL Absolute Neuts (auto) 3.8 (2.0-8.3) x10*3/uL Absolute Nucleated RBC 0.000 (0.0-0.012) X10*3/uL Nucleated RBC % (auto) 0.0 (0.0-0.2) /100WBC Sodium 143 (135-145) mmol/L Potassium 3.6 (3.3-5.1) mmol/L Chloride 108 (96-108) mmol/L Carbon Dioxide 26 (22-29) mmol/L Anion Gap 13 (12-20) BUN 17 H (9-16) mg/dL Creatinine 0.94 (0.5-1.4) mg/dL Estim Creat Clear Calc 73.2 Estimated GFR 59 Random Glucose 114 (60-115) mg/dL Calcium 9.4 (8.4-10.2) mg/dL Magnesium 2.0 (1.6-2.6) mg/dL Total Bilirubin 0.4 (0.0-1.0) mg/dL Direct Bilirubin 0.1 (0.0-0.5) mg/dL AST 24 (5-31) U/L ALT 23 (0-31) U/L Alkaline Phosphatase 95 (39-117) U/L Troponin I High Sens < 2.7 (<3.5-17.0) ng/L NT-Pro-B Natriuret Pep 213.4 (<300) pg/mL Total Protein 6.9 (6.5-8.0) g/dL Albumin 4.0 (3.5-5.0) g/dL COVID-19 (GURDEEP) Negative (Negative) COVID-19 Clin Com See Note Influenza Type A (LEX) Negative (Negative) Influenza Type B (LEX) Negative (Negative) Influenza A & B Note See Note Independent Interpretation I performed an independent interpretation of an: EKG Critical Care Time Critical Care Time Critical Care Time: Yes Total Critical Care Time: 40 Attestation: I have personally provided critical care time. Time includes review of lab data, radiology results, discussion with consultants, and monitoring for potential decompensation. Intervention performed as documented. Discharge Plan Discharge Clinical Impression: Chest pain, Anxiety Prescriptions: No Action multivitamin Tablet 1 tab PO DAILY Xarelto 20 mg tablet 20 mg PO DAILY cholecalciferol (vitamin D3) 125 mcg (5,000 unit) capsule 125 mcg PO DAILY amoxicillin 500 mg capsule 1,000 mg PO BID lamotrigine 25 mg tablet 50 mg PO DAILY losartan 50 mg tablet 50 mg PO DAILY gabapentin 300 mg capsule PO escitalopram oxalate 10 mg tablet 5 mg PO DAILY Print Language: Sinhala
[2025-07-08] MEDS: Aspirin Enteric Coated 325 MG TABLET.DR PO (23:06)
[2025-07-08 23:13] LABS: Hematocrit 42.8 % (37.0-47.0); Hemoglobin 15.1 g/dl (12.0-16.0); Imm Gran Abs Auto 0.02 X10*3/uL (0.00-0.03); Imm Gran Pct Auto 0.3 % (0.0-0.4); Lymphocytes Absolute Auto 2.7 X10*3/uL (1.2-4.9); MANUAL DIFF FLAG NO; Mean Corpuscular HGB Conc 35.3 g/dl (31.0-35.0); Mean Corpuscular Hemoglobin 30.1 pg (27.0-33.0); Mean Corpuscular Volume 85.4 fL (80.0-98.0); NRBC Abs Auto 0.000 X10*3/uL (0.0-0.012); NRBC Pct Auto 0.0 /100WBC (0.0-0.2); Platelet Count 231 X10*3/uL (160-400); Red Blood Count 5.01 X10*6/uL (4.20-5.50); White Blood Count 7.4 X10*3/uL (4.8-10.8)
[2025-07-08 23:26] LABS: COVID-19 Test Negative (Negative); IDNOW Serial# 55D5AD1C; IDNOW Serial# 58CA691E; Influenza B2 Negative (Negative)
[2025-07-08 23:27] LABS: Alanine Aminotransferase 23 U/L (0-31); Albumin Level 4.0 g/dL (3.5-5.0); Alkaline Phosphatase 95 U/L (39-117); Anion Gap 13 (12-20); Aspartate Amino Transferase 24 U/L (5-31); Blood Urea Nitrogen 17 mg/dL (9-16); Calcium 9.4 mg/dL (8.4-10.2); Carbon Dioxide 26 mmol/L (22-29); Chloride 108 mmol/L (96-108); Creatinine Clr Calc Pharmacy 73.2; Estimated Glomerular Filt Rate 59; Magnesium 2.0 mg/dL (1.6-2.6); Potassium 3.6 mmol/L (3.3-5.1); Sodium 143 mmol/L (135-145); Total Protein 6.9 g/dL (6.5-8.0)
[2025-07-08 23:36] LABS: Troponin-I High Sensitivity < 2.7 ng/L (<3.5-17.0)
[2025-07-09] VITALS: BP 145/71; PULSE 85; RESP 14; TEMP 36.7
[2025-07-09 00:32] LABS: NT Pro B Type Natriuretic Pept 213.4 pg/mL (<300)
--- NOTE | 2025-07-09 00:45 | PC.NURSE ---
pt refuses to let this RN draw 2nd trop or do strept swab when asked. pt stated james been here for 2 hours already and i am leaving. pt refuses to let me remove her iv at this time. pt stated my sister can do it she is a nurse i attempted to explain that she can not leave with an iv placed in the ER. pt started walking toward door. Notified my charge nurse of all information and began to speak with pt. in hallway of department at this time
--- NOTE | 2025-07-09 00:59 | PC.NURSE ---
credit charge authorizer made aware by primary rn that the patient was trying to leave the department when made aware of plan for 2nd/repeat troponin level. The pt was found to be ambulating freely near/around room 20/21 fully dressed stating that she was going to leave. the patient confirmed that she had a IV in place and was looking to leave. The pt was previously educated on the need for a repeat troponin level s/t her reason for the visit but declined. IV line was to the right AC was noted, pt reluctantly allowed this RN to remove the IV at which time she was noted to be rude, have an attitude, and throw her items down on the counter while using offensive/foul language. The pt threatened to take out her own IV numerous times while awaiting this RN to obtain the necessary supplies. IV line ultimately was removed with catheter tip in tact, pt was observed to independently ambulate out of the ed with even/steady gait and no distress noted.
== END 2025-07-09 01:01 | disposition left against medical advice (07) ==
PROVIDERS: Emergency Provider Emergency Medicine
DX: R07.9 Chest pain, unspecified (principal); I10 Essential (primary) hypertension; F41.9 Anxiety disorder, unspecified; I48.0 Paroxysmal atrial fibrillation
CPT/HCPCS: 80048; 80076; 83735; 83880; 84484; 85025; 87502; 87635; 93005; 99283; 99284

== ENCOUNTER → 2025-07-08 22:17 | Outpatient (BNV) | payer OTHER, SELFPAY | PROVIDERS: Emergency Provider Emergency Medicine; Visit Provider Internal Medicine Cardiovascular Disease | DX: I49.3 Ventricular premature depolarization (principal); R00.0 Tachycardia, unspecified; I25.2 Old myocardial infarction | CPT/HCPCS: 93010 ==

== ENCOUNTER 2025-07-13 13:31 | Outpatient (AMB) | payer OTHER, SELFPAY ==
--- NOTE | 2025-07-13 13:58 | MHC.OFFVIS ---
Vital Signs 07/13/25 13:59 Height 5 ft 4 in Weight 257 lb 0.944 oz BMI 44.1 BP 126/58 L Blood Pressure Location Lt brachial Pulse 86 Pulse Source Monitor Intake Visit Reasons: f/u need sooner appt has been ed bp up Institution Director Required: No Accompanied by: Spouse Allergies levofloxacin (From LEVAQUIN) Allergy (Severe, Verified 07/13/25 14:03) SICK Medication List - Last Reconciled 07/13/25 by Juan C Clarke NP bupropion HCl XL (Wellbutrin XL) 300 mg PO QAM cholecalciferol (vitamin D3) 125 mcg PO DAILY lamotrigine 50 mg PO DAILY losartan 50 mg PO DAILY multivitamin 1 tab PO DAILY propranolol 10 mg PO BID rivaroxaban 20 mg PO DAILY HPI Comments Details: This is a 70-year-old female patient who is coming in for a hospital discharge follow-up accompanied by her . Patient with a history of paroxysmal AFib and hypertension. Patient was previously following our office with Dr. Nichole and then moved to [place] but has now moved back to the area and would like to continue with our care. Patient last saw our office back in April of 2023 at which time patient was doing well. Patient is teary eyed and states that she is in a lot of stress from moving back to the area as they are in the process of looking for a home. There has been in between hotels and staying with a friend for the last 5 weeks and has been under a lot of stress due to this. Patient was recently seen in the emergency room for palpitations by bong MOSQUERA. Today, patient reports that she has been very anxious about her heart as patient's heart rate previously worse between 50-60 and now is more so in the 80s to 90s. Patient is otherwise denying any exertional chest pain, shortness of breath, dizziness, orthopnea, PND, leg edema, presyncope or syncope. Patient is reporting compliance with all her medications. 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 Smoking Chronic allergic rhinitis Pulmonary nodules Dyspnea LVH (left ventricular hypertrophy) Thoracic aortic atherosclerosis PAF (paroxysmal atrial fibrillation) HTN (hypertension) Surgical History ELECTRONIC) Hx of colonoscopy Hx of cholecystectomy Hx of section Family History Father Sudden cardiac Mother Chronic a-fib Social History Patient Tobacco Use Status: Former Tobacco user Tobacco use type: Cigarette Years Smoked: smokes marijuana, quit cigarettes former 1ppd smoker-15 Years Review of Systems Const Denies daytime sleepiness, Denies difficulty sleeping, Denies snoring, Denies stops breathing during sleep and Denies weakness Card Denies chest pain, Denies rapid heart rate, Denies irregular heart rhythm, Denies claudication, Denies leg edema, Denies lightheadedness, Reports palpitations, Denies dyspnea, Denies dyspnea on exertion, Denies orthopnea, Denies paroxysmal nocturnal dyspnea and Denies slow heart rate Resp Denies cough, Denies dyspnea, Denies dyspnea on exertion and Denies snoring GI Reports no additional complaints, Denies hematochezia, Denies change in stool character and Denies dyspepsia Musc Denies abnormal gait, Denies muscle weakness and Denies numbness Neuro Denies abnormal gait, Denies numbness and Denies weakness Endo Reports palpitations Physical Exam Vital Signs: Last Vital Signs Pulse 86 07/13/25 13:59 BP 126/58 L 07/13/25 13:59 BMI result Body Mass Index 44.1 Const General: cooperative, healthy appearing, comfortable and no acute distress Orientation/consciousness: patient oriented x3 HEENT Head: Yes normal to inspection Neck Neck: Yes normal visual inspection, Yes trachea midline and Yes supple Chest Chest palpation & inspection: normal inspection of the chest Resp Effort & Inspection: normal respiratory effort Auscultation: clear to auscultation bilaterally, no crackles, no rales, no rhonchi and no wheezes Cardio Jugular venous distension: no JVD Palpation: normal PMI Rate: regular rate Rhythm: regular rhythm Heart sounds: S1 normal heart sound present, S2 normal heart sound present, no click, no gallops, no murmurs and no rubs Peripheral pulses: Peripheral pulses 2+ throughout GI Inspection: Yes normal to inspection Palpation (GI): Soft to palpation Auscultation: normal bowel sounds Skin General skin exam: no rashes or lesions noted Neuro General: patient oriented x3 Extrem General: Yes normal to inspection, No no pedal edema and No calf tenderness Psych Appearance: grossly normal Mental Status: mental status grossly normal Speech and movement: Normal speech and movement present Office Procedures EKG Details: EKG today showed atrial flutter at 86 beats per minute with 2:1 conduction. [id number], Complete Assessment & Plan Assessment & Plan (1) Atrial flutter: Code(s): I48.92 - Unspecified atrial flutter Category: Medical Plan: EKG today showed atrial flutter. Rate controlled. Continue with Xarelto for full anticoagulation. Patient is clinically stable without any symptoms. We will get a Holter study to look for rate control. Continue propranolol for now. Depending on Holter findings, we will decide upon rhythm control versus rate control. We will also get an echocardiogram to look for LV systolic and diastolic dysfunction as well as valvular pathology. Echo from 2021 showed a normal LV systolic function with mild diastolic dysfunction and mild calcification of the aortic valve. (2) PAF (paroxysmal atrial fibrillation): Code(s): I48.0 - Paroxysmal atrial fibrillation Category: Medical Plan: As above (3) HTN (hypertension): Code(s): I10 - Essential (primary) hypertension Category: Medical Plan: Blood pressure today is well-controlled. Continue with current propranolol and losartan. Advised monitoring blood pressures at home with a goal less than 130/80. Advised on heart healthy diet, regular exercise, weight loss, stress mitigation strategies, and med compliance. Follow up after completion of the Holter and the echo. In the interim, patient will call the office with any concerns or change in symptoms. Advised her ER care in case of exertional chest pain not resolved with rest. This note was generated using voice recognition software. While every effort has been made to ensure accuracy and proper saddle and side wire stitcher, there may be occasional errors that could affect the content or meaning of the described symptoms. Orders: Orders [place] echo transthoracic complete 2 Weeks I10 - Essential (primary) hypertension, I51.7 - Cardiomegaly ECG 3 day holter monitor 2 Weeks I48.92 - Unspecified atrial flutter AMB EKG-In Office Today I48.0 - Paroxysmal atrial fibrillation Coding Level of Care Code Est Pt Level 4 (56003) Complex EM visit Add On G2211 Diagnoses Atrial flutter I48.92 PAF (paroxysmal atrial fibrillation) I48.0 HTN (hypertension) I10 CPT Codes EKG - CPT: 78095-[id number], Complete ([id number]) Time Spent (min) 32 Comment Time spent in reviewing the chart, test results, assessment, counseling and documentation.
[2025-07-13 13:59] VITALS: BP 126/58; PULSE 86; BMI 44.1
== END 2025-07-13 14:41 | disposition home or self-care (01) ==
LOC: HO.HCS 13:32
DX: I48.92 Unspecified atrial flutter (principal); I48.0 Paroxysmal atrial fibrillation; I10 Essential (primary) hypertension
CPT/HCPCS: 93010; 99214; G2211

== ENCOUNTER → 2025-07-13 13:31 | Outpatient (BNVA) | payer OTHER, SELFPAY | DX: I10 Essential (primary) hypertension (principal); I48.0 Paroxysmal atrial fibrillation | CPT/HCPCS: 93005 ==

== ENCOUNTER 2025-07-26 07:41 | Outpatient (AMB) | payer OTHER, SELFPAY ==
--- OUTSIDE RECORDS SUMMARY | 2011-08-15 | XMS_ITS | Encounter Summary ---
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 Role Phone Unavailable Primary Care Provider Unavailabl e Encounter Details Date Type Department Care Team (Late st Contact Info) Description 08/15/2011 Hospital Encounter [facility],Outside Imaging [address] [place] [address] System, Provider Not In, [facility] [address] [address] Social History Tobacco Use Types Packs/Day Years Used Date Smoking Tobacco: Former Cigarettes 0.5 10 1 10/28/1976 - 08/27/1987 Smokeless Tobacco: Never Comments:vaps Alcohol Use Standard Drinks/Week Comments Yes 0 (1 standard drink = 0.6 oz pur e alcohol) rarely, 1-2 x month Child or Family Care Answer Date Record ed Do you have problems with on e of the following making it difficult for you to work, study, or receive health care? No 03/20/2022 Education Answer Date Recorded Are you interested in more education? Not on isabella e 04/08/2024 Are you concerned about learning? Not on file 04/08/2024 No 04/08/2024 No 04/08/2024 Food Answer Date Recorded Within the past 6 months we worried whether our food would run out before we got money to buy more. Never True 03/20/2022 Within the past 6 months the food we bought just didn't last and we didn't have enough money to get more. Never True 06/28/202 2 Residential Stability Answer Date Recor ded What is your housing situation today? I have [facility] 03/20/2022 How many times have you move d in the past 12 months? Zero (I did not move) 03/20/2022 Paying for Meds Answer Date Recorded Do you have trouble paying for medicines? No 03/20/2022 Paying Utility Bills Answer Date Record ed Do you have trouble paying your heating or elect ricity bill? No 03/20/2022 Transportation Answer Date Recorded Has the lack of transportati on kept you from medical appointments or from getting medications? No 03/20/2022 Unemployment Answer Date Recorded Are you currently unemployed or working on a part-time or temporary basis, and looking for work? No 03/20/2022 Digital Access Answer Date Recorded No 02/18/2023 No 02/18/2023 Reliable internet access at home? Not on file 02/18/2023 Device with a working camera? Not on file Comments No Sex and Gender Information Value Date Recorded Sex Assigned at Female 12/24/2019 6:39 PM EDT Legal Sex Female 9:52 PM EDT Gender Identity Female 12/24/2019 6:39 PM EDT Sexual Orientation Straight 12/24/2019 6: 39 PM EDT documented as of this encounter Plan of Treatment Not on file documented as of this encounter Procedures Procedure Name Priority Date/Time Associated Diagnosis Comments BI MAMMOGRAM OUTSIDE (NO INTERPRETATION) Routine 08/15/2011 12:00 AM EST documented in this encounter Results * Mammogram Outside (No Interpretation) (08/15/2011 12:00 AM EST) Narrative SYSTEMGENERATED, DOCUMENTATION - 04/16/2019 12:10 PM EDT This study is for PACS storage only and not for interpretation. us Provider Not In System [facility] OUTSIDE IMAGING W /OUT INTERPRETATION Final Result documented in this encounter Visit Diagnoses Not on filedocumented in this encounter Additional Health Concerns Infection Onset Date Last Indicated Resolved Time CoV-Exposed Comment:Recent close contact 08/05/2020 08/05/2020 08/19/2020 1:24 AM EST CoV-Risk 08/17/2020 08/19/2020 08/31/2020 1:24 AM EST documented as of this encounter Additional Source Comments The information contained in this document represents components of the legal health record. It is not the complete legal health record.[facility]
--- OUTSIDE RECORDS SUMMARY | 2025-07-26 07:44 | XMS_ITS | Encounter Summary ---
Author Organization [facility] Address [address] [place] [address] Phone Care Team Providers Care Forensic Investigator Name Role Phone Sylvester Driscoll MD Unavailable Huy Ansari MD Unavailable [phone] Shady Medina MD, MS Unavailable [phone] Radha Licona PLANT HEALTH CARE TECHNICIAN Unavailable Melissa Chaney PLANT HEALTH CARE TECHNICIAN Unavailable [phone] Melissa Chaney PLANT HEALTH CARE TECHNICIAN Primary Care Provider Unknown, Unknown Primary Care Provider Zoraida stewart Encounter Details Date Type Department Care Team (Late st Contact Info) Description 03/04/2018 Ancillary Orders [facility] [address] [place] [address] Huy Ansari MD [address] [place] [address] [email or web address] Social History Tobacco Use Types Packs/Day Years Used Date Smoking Tobacco: Former Cigarettes 0.5 10 1 10/28/1976 - 08/27/1987 Smokeless Tobacco: Never Alcohol Use Standard Drinks/Week Comments Yes 0 (1 standard drink = 0.6 oz pur e alcohol) rarely Comments Unknown Sex and Gender Information Value Date Recorded Sex Assigned at Female 12/24/2019 6:39 PM EDT Legal Sex Female 9:52 PM EDT Gender Identity Female 12/24/2019 6:39 PM EDT Sexual Orientation Straight 12/24/2019 6: 39 PM EDT documented as of this encounter Plan of Treatment Not on file documented as of this encounter Visit Diagnoses Not on filedocumented in this encounter Additional Health Concerns Infection Onset Date Last Indicated Resolved Time CoV-Exposed Comment:Recent close contact 08/05/2020 08/05/2020 08/19/2020 1:24 AM EST CoV-Risk 08/17/2020 08/19/2020 08/31/2020 1:24 AM EST Assessment Noted Time PHQ-2 Depression Total Score: 0 02/28/20 8:29 AM EDT documented as of this encounter Care Teams Forensic Investigator Relationship Specialty Start Date End Date Melissa Chaney PLANT HEALTH CARE TECHNICIAN [address] [place] [id number] [email or web address] PCP - General Family Medicine 10/14/17 12/02/23 Unknown, Unknown, MD PCP - General 12/03/23 Sylvester Driscoll MD [address] [place] [address] [email or web address] Historical LMR Provider 07/10/17 09/30/21 Huy Ansari MD [address] [place] [id number] Historical LMR Provider 07/10/17 Shady Medina MD, MS [address] [place] [id number] Historical LMR Provider 07/10/17 09/30/21 Radha Licona PLANT HEALTH CARE TECHNICIAN [address] [place] [address] [email or web address] Historical LMR Provider 07/10/17 2 Melissa Chaney NP [address] [place] [address] [email or web address] Historical LMR Provider 07/10/17 documented as of this encounter Additional Source Comments The information contained in this document represents components of the legal health record. It is not the complete legal health record.[facility]
--- OUTSIDE RECORDS SUMMARY | 2025-07-26 07:44 | XMS_ITS | Patient Health Record ---
Author Organization [facility] [place] Address [address] [place] [address] Care Team Providers Care Color Straining Bag Washer Name Role Phone Melissa Chaney NP Primary Care Provider Honorio Murillo [phone] Allergies No Known Allergies Reason For Referral No Information Medications Medication SIG (Take, Route, Frequency, Duration) Notes Start Date End Date Status Collagen Active Lexapro 20 MG 1 tablet Orally Once a day; Duration: 30 day(s) Active Vitamin D 2000 UNIT as directed Orally Active Multivitamin Active Metoprolol Succinate 50 MG 1 capsule Orally Once a day; Duration: 30 day(s) Active Avapro 100 mg 1 tablet Orally Once a day; Duration: 30 day(s) Not-Taking Aspirin 81 MG 1 tablet Orally Once a day; Duration: 30 day(s) Not-Taking Xarelto 2.5 MG 1 tablet Orally Twic e a day; Duration: 30 day(s) Active Diclofenac Sodium 3 % 1 application Externally Twice a day; Duration: 30 days Active Immunizations Vaccine Route Administration Date Status Comme nts COVID-19 Pfizer BioNTech Vaccine Unknown 11/27/2020 Administered 1st 11/13/2020 Social History Tobacco Use: Social History Observation Description Date Details (start date - stop date) Former Smoker NA - NA Tobacco Use/Smoking Question Answer Notes Are you a: former smoker Additional Findings: Tobacco Non-User Current no n-smoker Alcohol Screen Question Answer Notes Did you have a drink containing alcohol in the p ast year? Yes Points 0 Interpretation Negative Tobacco use other than smoking: Question Answer Notes Are you an other tobacco user? No Problems Problem Type SNOMED Code ICD Code Onset Dates Problem Status W/U Status Risk Notes Problem Acquired hammer toe of right foot (0435805243731 105) Other hammer toe(s) (acquired), right foot (M20.41) Active confirmed Problem Acquired hammer toe of left foot (0159839462081 103) Other hammer toe(s) (acquired), left foot (M20.42) Active confirmed Plan Of Treatment Pending Test Test Name Order Date X ray : Foot, left 3V 12/21/2020 Insurance Providers Payer Name Payer Address Payer Phone Subscriber Number Group Number Insured Name Patient Relationship to Insured Coverage Start Date Coverage End Date [facility] [address] [place] [address] [id number] Tc Wallace Spouse - patient is the spouse of the insured Medical (General) History Medical History History ICD Code chicken pox Anxiety Broken bones Scarlet fever Measles Mumps Chicken pox Arthritis - Degenerative 719.97 Arthritis - Degenerative 729.5 Pain in Limb 754.61 Flat Foot, Congenital 728.71 Plantar Fasciitis Surgical History Surgery Date(Month/Year) cholecystectomy
--- OUTSIDE RECORDS SUMMARY | 2025-07-26 07:44 | XMS_ITS | Encounter Summary ---
Author Organization [facility] Address [address] [place] [address] Phone Care Team Providers Care Fish Hatchery Supervisor Name Role Phone Huy Ansari MD Unavailable [phone] Melissa Chaney LOOM FIXER APPRENTICE Unavailable [phone] Melissa Chaney LOOM FIXER APPRENTICE Primary Care Provider [phone] Unknown, Unknown Primary Care Provider Zoraida stewart Encounter Details Date Type Department Care Team (Late st Contact Info) Description 07/02/2023 Procedure Pass [facility] Endoscopy Admitting Dept Virtual Department [address] [place] [address] Social History Tobacco Use Types Packs/Day Years [...] Answer Date Recorded Are you interested in help w ith more adult education (for example, completing high school, GED, job training, learning the Spanish language, technical skills, or developing parenting skills)? No 03/20/2022 Food Answer Date Recorded Within the past 6 months we worried whether our food would run out before we got money to buy more. Never True 03/20/2022 Within the past 6 months the food we bought just didn't last and we didn't have enough money to get more. Never True Residential Stability Answer Date Recor ded What [...] filedocumented in this encounter Additional Health Concerns Assessment Noted Time PHQ-2 Depression Total Score: 0 03/13/20 23 12:25 PM EDT documented as of this encounter Care Teams Fish Hatchery Supervisor Relationship Specialty Start Date End Date Melissa Chaney NP [address] [place] [address] PCP - General Family Medicine 10/14/17 12/02/23 Unknown, Unknown, MD PCP - General 12/03/23 Huy Ansari MD [address] [place] [address] Historical LMR Provider 07/10/17 Melissa Chaney NP [address] [place] [address] [email or web address] Historical LMR Provider 07/10/17 documented as of this encounter Additional Source Comments The information contained in this document represents components of the legal health record. It is not the complete legal health record.[facility]
--- OUTSIDE RECORDS SUMMARY | 2025-07-26 07:44 | XMS_ITS | Clinical Summary ---
Author Organization [facility] Address [address] [place], [place] [id number] Phone Care Team Providers Care Bass Guitar Teacher Name Role Phone Huy Ansari MD Unavailable [phone] Karon Chaney NP Unavailable [phone] Unknown, Unknown Primary Care Provider Zoraida stewart Allergies Active Allergy Reactions Criticality Noted Date Comments Levofloxacin 08/26/2017 Lisinopril Cough Low 03/22/2022 Medications CHOLECALCIFEROL, VITAMIN D3, (VITAMIN D3 ORAL) Take 5,000 Units by mouth daily. Active Lactobacillus acidophilus (PROBIOTIC ORAL) Take by mouth. Active COLLAGEN MISC by Miscellaneous route every other day. Active gabapentin (NEURONTIN) 300 MG capsule Take 1 capsule (300 mg total) by mouth 2 (two) times a day. 180 capsule 4 08/28/20 23 Active losartan (COZAAR) 50 MG tabletIndication s:Essential hypertension Take 1 tablet (50 mg total) by mouth daily. 90 tablet 3 08/28/20 23 Active amoxicillin (AMOXIL) 500 MG capsule TAKE 4 CAPSULES BY MOUTH 1 HOUR PRIOR TO DENTAL PROCEDURE 8 capsule 3 08/28/20 23 Active escitalopram oxalate (LEXAPRO) 10 MG tablet Take 1 tablet (10 mg total) by mouth daily. 90 tablet 3 08/28/20 23 Active propranoloL (INDERAL) 10 MG immediate release tablet Take 1 tablet (10 mg total) by mouth 2 (two) times a day. 180 tablet 3 09/02/20 Active lamoTRIgine (LAMICTAL) 150 MG IMMEDIATE release tablet Take 1 tablet (150 mg total) by mouth daily. 90 tablet 3 09/02/20 Active rivaroxaban (XARELTO) 20 mg TabIndications:P aroxysmal atrial fibrillation Take 1 tablet (20 mg total) by mouth daily with dinner. 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 Stress incontinence 09/08/2021 Benign paroxysmal positional vertigo of left ear 06/26/2021 Multiple pulmonary nodules 02/10/2020 History of lung abscess 02/10/2020 Abscess of lower lobe of left lung with pneumoni a 08/27/2017 Anxiety 08/27/2017 Depression 08/27/2017 Essential hypertension 08/27/2017 Overweight 08/27/2017 Paroxysmal atrial fibrillation 08/27/2017 Assessment & Plan (06/26/2021 10:14 AM EDT): It was reasonable for her to come in to make sure that she was not severely hypertensive or having other neurological symptoms that might manifest with posterior cerebellar vascular compromise. Unclear what is causing the headaches, she certainly has the symptoms of benign positional vertigo as demonstrated on the exam that I did whereby patient was brought down into the supine position and quickly back into the sitting position in both maneuvers especially with sitting back up had horizontal and vertical vertigo. Patient counseled on BPV and given some maneuvers to do, patient education. If that is inadequate we can set her up with physical therapy. Patient educated on the matter. This was a 20-minute visit. Postmenopausal status 08/27/2017 Solitary pulmonary nodule on lung CT 08/27/2017 Immunizations Immunization Administration Dates Next Due COVID-19 (Pre-07/15) Pfizer Vaccine, mRNA, PF 11/27/2020,11/03/2020,10/13/2020 INFLUENZA, SPLIT VIRUS, TRIVALENT PF 05/24/2016, 07/14/2015 INFLUENZA, SPLIT VIRUS, TRIV ALENT W/ PRESERVATIVE IM 07/21/2014 Influenza High-Dose Quadriva lent Preservative Free IM 06/26/2023 Influenza Quadrivalent Prese rvative Free IM 06/13/2022,06/26/2021,07/01/2020,07/16,06/29/2018,08/27/2017 Influenza trivalent preserva tive free intradermal 06/25/2013 Influenza, Unspecified Formulation 07/24/2019, Pneumococcal conjugate PCV13 10/16/2019 Pneumococcal polysaccharide PPSV23 07/27/2020 Tdap 10/16/2019 Zoster recombinant 09/08/2021 Family History Medical History Relation Comments Stroke Father CV disease Mother Cancer Sibling Relation Status Comments Daughter Alive Father Mother Alive Sibling Alive Social History Tobacco Use Types Packs/Day Years Used Date Smoking Tobacco: Former Cigarettes 0.5 10 1 10/28/1976 - 08/27/1987 Smokeless Tobacco: Never Tobacco Cessation:Counseling Given: Not Answered Comments:vaps Alcohol Use Standard Drinks/Week Comments Yes [...] your housing situation today? I have augustus sing 03/20/2022 How many times have you move [...] Orientation Straight 12/24/2019 6: 39 PM EDT Last Filed Vital Signs Vital Sign Reading Time Taken Comments Blood Pressure 114/65 03/20/2023 11:58 AM EDT Pulse 63 02/05/2023 10:14 AM EDT Temperature 36.9 C (98.4 F) 12/26/2022 9:17 AM EDT Respiratory Rate 16 06/20/2022 2:08 PM EDT Oxygen Saturation 99% 12/26/2022 9:17 AM EDT Inhaled Oxygen Concentration - - Weight 131.5 kg (290 lb) 02/05/2023 10:14 AM EDT Height 160 cm (5' 3 ) 02/05/2023 10:14 AM EDT Body Mass Index 51.37 02/05/2023 10:14 AM EDT Plan of Treatment Health Maintenance Due Date Last Done Comments SMOKING Hx and SMOKELESS TOBACCO SCREENING 1970 COLOGUARD 2002 FIT TEST 2002 FOBT 2002 SIGMOIDOSCOPY 2002 VIRTUAL COLONOSCOPY 2002 RSV VACCINE (1 - Risk 50-74 years 1-dose series) 2007 MAMMOGRAM 04/28/2021 04/28/2019, 08/15/2011 ZOSTER VACCINES (2 of 2) 11/03/2021 09/08/2021 BLOOD PRESSURE 12/26/2023 06/26/2023 DEPRESSION SCREENING 03/13/2024 03/13/2023 CREATININE LEVEL 06/26/2024 06/26/2023, , 09/08/2021, Additional history exists POTASSIUM LEVEL 06/26/2024 06/26/2023, 02/23, 09/08/2021, Additional history exists COLONOSCOPY 11/29/2024 11/30/2019, 06/30/2010 COLORECTAL CANCER SCREENING 11/29/2024 INFLUENZA VACCINE (#1) 2025 , 06/13/2022, 06/26/2021, Additional history exists COVID-19 VACCINE (6 - season) 2025 06/27/2022, 07/03/2021, 11/27/2020, Additional history exists PNEUMOCOCCAL VACCINES (50+ years) (3 of 3 - PCV20 or PCV21) 07/27/2025 07/27/2020, 10/16/2019 SCREENING FOR DIABETES 06/26/2026 06/26/2023, 2022 LIPID PANEL 06/26/2028 06/26/2023, 02/23, 03/21/2021, Additional history exists Adult Td,Tdap Booster 10/16/2029 10/16/2019 HEPATITIS C SCREENING Completed 10/20/2019 OSTEOPOROSIS SCREENING INITIAL (ONE-TIME) Completed 11/30/2021 HEPATITIS A VACCINES Aged Out No long er eligible based on patient's age to complete this topic HIB VACCINES Aged Out No longer eligi ble based on patient's age to complete this topic MENINGOCOCCAL VACCINES (ACWY) Aged Out No longer eligible based on patient's age to complete this topic MENINGOCOCCAL VACCINES (B) Aged Out N o longer eligible based on patient's age to complete this topic Medical Devices Implanted Type Area Tax Services Specialist Device Identifier Shelf Expiration Date Model / Serial / Lot Clip Hemostasis Resolution 360 Lf Nonsterile 2.8mm Channel 360deg 235cm Bx/20ea - [id number] Implanted:Qty: 1 on 11/30/2019 by Yolanda Brooke MD at [facility] [employer] [id number] / / Description:Right colon poly p at 85 Clip Hemostasis Resolution 360 Lf Nonsterile 2.8mm Channel 360deg 235cm Bx/20ea - [id number] Implanted:Qty: 1 on 11/30/2019 by Yolanda Brooke MD at [facility] [employer] [id number] / / Description:Colon polyp at 6 0 Procedures Procedure Name Priority Date/Time Associated Diagnosis Comments LIPID PANEL Routine 06/26/2023 11:46 AM EDT Essential hypertension COMPREHENSIVE METABOLIC PANEL (CMP) Routine 06/26/2023 11:46 AM EDT Essential hypertension BD DXA AXIAL (SPINE) WITH HIP Routine 11/30/2021 7:47 AM EST Post-menopausal ENDOSCOPY, COLON 11/30/2019 11:2 2 AM EDT HEPATITIS C ANTIBODY, QUALITATIVE Routine 10/20/2019 8:01 AM EST Routine general medical examination at a [facility] facility BI MAMMOGRAM SCREENING WITH TOMOSYNTHESIS WITH CAD (BILATERAL) Routine 04/28/2019 8:32 AM EDT Screening for breast cancer from Last 3 Months or Most Recently Relevant to Health Maintenance Results * (ABNORMAL) Comprehensive metabolic panel (06/26/2023 11:46 AM EDT) SODIUM 140 133 - 146 mmol/L [facility] POTASSIUM 4.4 3.3 - 5.1 mmol/L [facility] CHLORIDE 101 96 - 108 mmol/L [facility] CO2 32 21 - 35 mmol/L [facility] BUN 18 6 - 19 mg/dL [facility] CREATININE 0.90 0.5 - 1.5 mg/dL [facility] GLUCOSE 101(H) 70 - 99 mg/dL [facility] ALBUMIN 4.0 3.9 - 4.8 g/dL [facility] TOTAL PROTEIN 6.9 6.5 - 8.0 g/dL [facility] CALCIUM 9.7 8.4 - 10.3 mg/dL [facility] ALKALINE PHOSPHATASE 83 39 - 117 U/L [facility] TOTAL BILIRUBIN <0.2 0.0 - 1.2 mg/dL [facility] AST 27 0 - 37 U/L [facility] ALT 28 0 - 40 U/L [facility] GLOBULIN 2.9 1 - 4.8 g/dL [facility] EGFR 71 >59 mL/min/1.7 3m2 [facility] Comment:Estimated glomerular filtration rate calculated using the CKD-EPI refit equation. ANION GAP 11 10 - 20 mmol/L [facility] Blood 06/26/2023 11:4 6 AM EDT 06/26/2023 11:50 AM EDT Karon Chaney NP LAB BLOOD BKR ORDERABLES Final Result Performing Organization Address [facility] Co de Phone Number [address] [address] * (ABNORMAL) Lipid panel (06/26/2023 11:46 AM EDT) HDL 62 mg/dL [facility] Comment: Interpretation <40 mg/dL: Low HDL cholesterol (major risk factor for CHD) Greater than or equal to 60 mg/dL: High HDL cholesterol ( negative risk factor for CHD) HDL - cholesterol is affected by a number of factors, e.g. smoking, excerise, hormones, sex and age. CHOLESTEROL 197 0 - 240 mg/dL [facility] TRIGLYCERIDES 147 30 - 160 mg/dL [facility] LDL 106 50 - 129 mg/dL [facility] Comment: LDL levels in terms of risk for coronary heart disease: <100 mg/dL: Optimal 100-129 mg/dL: Near or above optimal 130-159 mg/dL: Borderline high 160-189 mg/dL: High >190 mg/dL: Very High CARDIAC RISK RATIO 3.2(L) 3.3 - 4.4 C [facility] Blood 06/26/2023 11:4 6 AM EDT 06/26/2023 11:50 AM EDT us Karon Chaney NP LAB BLOOD BKR ORDERABLES Final Result Performing Organization Address [facility]/ZIP Co de Phone Number [address] [address] * BD DXA AXIAL (SPINE) WITH HIP (11/30/2021 7:47 AM EST) Anatomical Region Laterality Modality Bone Density Bone Density 11/30/2021 8:07 AM EST Impressions 11/30/2021 8:08 AM EST Normal bone density. Narrative 11/30/2021 8:08 AM EST COMPARISON: None. BONE DENSITY FINDINGS: History: This is a 66-year-old postmenopausal female. Evaluation of the lumbar spine and hips was performed and felt to be technically adequate. L1-L4 vertebral bodies total bone mineral density was calculated at 1.327 gm/cm2 with a T-score of 2.5 falling within the WHO classification of normal. Z-score of 4.3. Right femoral neck bone mineral density was calculated at 0.830 gm/cm2 with a T- score of -0.2 falling within the WHO classification of normal. Z-score of 1.3. Total Right hip bone mineral density was calculated at 0.974 gm/cm2 with a T- score of 0.3 falling within the WHO classification of normal. Z-score of 1.5. Left femoral neck bone mineral density was calculated at 0.758 gm/cm2 with a T- score of -0.8 falling within the WHO classification of normal. Z-score of 0.7. Total Left hip bone mineral density was calculated at 1014 gm/cm2 with a T-score of 0.6 falling within the WHO classification of normal. Z-score of 1.8. Procedure Note Dayanara Bacon MD - 11/30/2021 COMPARISON: None. BONE DENSITY FINDINGS: History: This is a 66-year-old postmenopausal female. Evaluation of the lumbar spine and hips was performed and felt to betechnically adequate. L1-L4 vertebral bodies total bone mineral density was calculated at 1.327gm/cm2 with a T-score of 2.5 falling within the WHO classification ofnormal. Z-score of 4.3. Right femoral neck bone mineral density was calculated at 0.830 gm/kk9qsct a T- score of -0.2 falling within the WHO classification of normal.Z-score of 1.3. Total Right hip bone mineral density was calculated at 0.974 gm/cm2 with aT- score of 0.3 falling within the WHO classification of normal. Z-scoreof 1.5. Left femoral neck bone mineral density was calculated at 0.758 gm/cm2 witha T- score of -0.8 falling within the WHO classification of normal.Z-score of 0.7. Total Left hip bone mineral density was calculated at 1014 gm/cm2 with aT-score of 0.6 falling within the WHO classification of normal. Z-scoreof 1.8. IMPRESSION: Normal bone density. us Karon Chaney SPRING FITTER IMG BD BONE DENSITY DEXA Final Result * ENDOSCOPY, COLON (11/30/2019 11:22 AM EDT) Narrative Transcriptions Yolanda Brooke MD - 11/30/2019 11:22 AM EDT Patient Name: Jocelyne Wallace Attending MD:: YOLANDA BROOKE MD Procedure Date: 11/30/2019 11:22 AM Date of : 1955 Age: 64 Admit Type: Outpatient Gender: Female Room: [place] [address] Referring MD: KARON CHANEY Exam Type: Colonoscopy Indications: Surveillance: Personal history of adenomatous polypson last colonoscopy > 5 years ago Medications: Monitored Anesthesia Care Procedure: Informed consent was obtained from the patient after discussion of the indications, limitations, alternatives, benefits, and risks of the procedure. Risks specifically discussed include but are not limited to medication reactions, missed lesions, bleeding, perforation, or the need for emergentsurgery. Throughout the procedure, the patient's bloodpressure, pulse, end-tidal CO2, and oxygen saturations were monitored continuously. The Olympus adult variable colonoscope [id number] #4was introduced through the anus and advanced to thececum, identified by appendiceal orifice and ileocecalvalve. The colonoscopy was performed without difficulty.The patient tolerated the procedure fairly well. The quality of the bowel preparation was good. Complications: No immediate complications. Estimated blood loss: Minimal. Findings: The perianal and digital rectal examinations were normal. Pertinent negatives include normal sphincter tone. A 11 mm polyp was found in the ascending colon. The polyp was sessile. The polyp was removed with a hot snare. Resection and retrieval were complete. To prevent bleeding after the polypectomy, onehemostatic clip was successfully placed (MR conditional). There was no bleeding during, or at the end, of theprocedure. A 7 mm polyp was found at 60 cm proximal to theanus. The polyp was sessile. The polyp was removed with ahot snare. Resection and retrieval were complete. To prevent bleeding after the polypectomy, onehemostatic clip was successfully placed. There was no bleeding during, or at the end, of the procedure. A 5 mm polyp was found in the rectum. The polyp was sessile. The polyp was removed with a cold snare. Resection and retrieval were complete. Estimatedblood loss was minimal. There was moderate spasm in the descending colon, at the splenic flexure and in the transverse colon. The exam was otherwise without abnormality on direct and retroflexion views. The terminal ileum appeared normal. Impression: - One 11 mm polyp in the ascending colon, removedwith a hot snare. Resected and retrieved. Clip (MR conditional) was placed. - One 7 mm polyp at 60 cm proximal to the anus,removed with a hot snare. Resected and retrieved. Clip was placed. - One 5 mm polyp in the rectum, removed with a cold snare. Resected and retrieved. - Moderate colonic spasm. - The examination was otherwise normal on direct and retroflexion views. Recommendation: - I will send results of your biopsy to you and your referring physician or provider. If you do notreceive notification within 3 weeks, please call ouroffice. - Resume Xarelto (rivaroxaban) at prior dosetomorrow. - Repeat colonoscopy in 5 years for surveillancebased on pathology results. YOLANDA BROOKE MD 11/30/2019 11:58:36 AM This report has been signed electronically. Number of Addenda: 0 Note Initiated On: 11/30/2019 11:22 AM Procedure Code(s): --- Professional --- 77435, Colonoscopy, flexible; with removal of tumor(s), polyp(s), or other lesion(s) by snare technique --- Technical --- 93018, Colonoscopy, flexible; with removal of tumor(s), polyp(s), or other lesion(s) by snare technique Diagnosis Code(s): --- Professional --- Z86.010, Personal history of colonic polyps D12.2, Benign neoplasm of ascending colon K62.1, Rectal polyp K58.9, Irritable bowel syndrome without diarrhea --- Technical --- Z86.010, Personal history of colonic polyps D12.2, Benign neoplasm of ascending colon K62.1, Rectal polyp K58.9, Irritable bowel syndrome without diarrhea CPT copyright 2018 [employer]. All rights reserved. The codes documented in this report are preliminary and upon algorithm design engineer reviewmay be revised to meet current compliance requirements. Procedure Date: 11/30/2019 11:22:[address] [place] [address] [id number] us Karon Chaney NP GI PROCEDURE ORDERABLES Final R esult * Hepatitis C antibody, qualitative (10/20/2019 8:01 AM EST) HCV NON-REACTIV E NON-REACTI VE [facility] Blood 10/20/2019 8:01 AM EST 10/20/2019 8:06 AM EST us Karon Chaney NP LAB BLOOD BKR ORDERABLES Final Result [facility] [address] [place] [address] * BI MAMMOGRAM SCREENING WITH TOMOSYNTHESIS WITH CAD (BILATERAL) (04/28/2019 8:32 AM EDT) Anatomical Region Laterality Modality Breast Left, Breast Right, Breast Bilateral Bila teral Mammography 04/28/2019 9:00 AM EDT Impressions 04/28/2019 10:01 AM EDT No mammographic evidence of malignancy. Recommend annual surveillance. BI-RADS CATEGORY: 1 - Negative. DENSITY: The breast tissue is almost entirely fat. POS - CDHMAMA Narrative 04/28/2019 10:01 AM EDT 63-year-old female with no current breast symptoms. Comparison made to previous on 08/15/2011. Interpretation made in conjunction with computer-aided detection and tomosynthesis. The breasts are almost entirely fatty. There are no suspicious masses, areas of architectural distortion, or suspicious clusters of microcalcifications. Procedure Note Dayanara Bacon MD - 04/28/2019 63-year-old female with no current breast symptoms. Comparison made toprevious on 08/15/2011. Interpretation made in conjunction withcomputer-aided detection and tomosynthesis. The breasts are almost entirely fatty. There are no suspicious masses, areas of architectural distortion, orsuspicious clusters of microcalcifications. IMPRESSION: No mammographic evidence of malignancy. Recommend annual surveillance. BI-RADS CATEGORY: 1 - Negative. DENSITY: The breast tissue is almost entirely fat. POS - CDHMAMA Karon Chaney NP IMG MG EXAMS Final Result from Last 3 Months or Most Recently Relevant to Health Maintenance Insurance MEDICARE PART A & B MEDICARE PPO BLUE REPLACEMENT MEDICARE PART A & B MEDICARE PPO BLUE REPLACEMENT MEDICARE PART A & B [facility] MEDICARE PPO BLUE REPLACEMENT MEDICARE PART A & B [facility] MEDICARE PPO BLUE REPLACEMENT MEDICARE PART A & [place] [address] [address] [address] MEDICARE PPO BLUE REPLACEMENT MEDICARE PART A & B [facility] MEDICARE PPO BLUE REPLACEMENT Member Subscriber Plan / Payer (Ef fective 2022-Present) Name:Jocelyne Wallace Relation to Subscriber:Self Name:Jocelyne Wallace Payer ID:[id number] (NAIC) Type:Medicare Address: [place] [id number] Care Teams Bass Guitar Teacher Relationship Specialty Start Date End Date Unknown, Unknown, MD PCP - General 12/03/23 Huy Ansari MD [address] [place] [address] [email or web address] Historical LMR Provider 07/10/17 Karon Chaney NP [address] [place] [address] [email or web address] Historical LMR Provider 07/10/17 Additional Source Comments The information contained in this document represents components of the legal health record. It is not the complete legal health record.[facility]
--- OUTSIDE RECORDS SUMMARY | 2025-07-26 07:44 | XMS_ITS | Encounter Summary ---
Author Organization [facility] Address [address] [place] [address] Phone Care Team Providers Care Manager Country Name Role Phone Yolanda Driscoll MD Unavailable [phone] Huy Ansari MD Unavailable [phone] Shady Medina MD, MS Unavailable [phone] Radha Licona SCANNING TECH Unavailable Melissa Chaney SCANNING TECH Unavailable [phone] Melissa Chaney SCANNING TECH Primary Care Provider Unknown, Unknown Primary Care Provider Zoraida stewart Encounter Details Date Type Department Care Team (Late st Contact Info) Description 03/04/2018 Ancillary Orders [facility], X-Ray - [address] [place] [address] Huy Ansari MD [address] [place] [address] [email or web address] Productive cough Social History Tobacco Use Types Packs/Day Years [...] on file documented as of this encounter Results * XR CHEST PA AND LATERAL 2 VIEWS (03/04/2018 8:37 AM EDT) Anatomical Region Laterality Modality Chest Radiographic Lorene ging 03/04/2018 9:10 AM EDT Impressions 03/04/2018 9:11 AM EDT No evidence of active cardiopulmonary disease. POS [id number] Narrative 03/04/2018 9:11 AM EDT Frontal and lateral views are compared with the prior study of 08/26/2017 and reveal the lungs to be well-expanded and overall clear without focal infiltrates or pleural effusions present. The heart and pulmonary vessels are within normal limits in size and the visualized bony thorax appears intact. Diffuse degenerative disc changes are again seen. Procedure Note Yolanda Gordon MD - 03/04/2018 Frontal and lateral views are compared with the prior study of 08/26/2017and reveal the lungs to be well-expanded and overall clear without focalinfiltrates or pleural effusions present. The heart and pulmonary vesselsare within normal limits in size and the visualized bony thorax appearsintact. Diffuse degenerative disc changes are again seen. IMPRESSION: No evidence of active cardiopulmonary disease. POS [id number] us Huy Ansari MD IMG XR CHEST Final Result documented in this encounter Visit Diagnoses Diagnosis Productive cough Cough Productive cough Cough documented in this encounter Additional Health Concerns Infection Onset Date Last Indicated Resolved Time CoV-Exposed Comment:Recent close contact 08/05/2020 08/05/2020 08/19/2020 1:24 AM EST CoV-Risk 08/17/2020 08/19/2020 08/31/2020 1:24 AM EST Assessment Noted Time PHQ-2 Depression Total Score: 0 02/28/20 18 8:29 AM EDT documented as of this encounter Care Teams Manager Country Relationship Specialty Start Date End Date Melissa Chaney, SCANNING TECH [address] [place] [id number] PCP - General Family Medicine 10/14/17 12/02/23 Unknown, Alyx, PCP - General 12/03/23 Yolanda Driscoll MD [address] [place] [phone] Historical LMR Provider 07/10/17 09/30/21 Huy Ansari MD [address] [place] [address] Historical LMR Provider 07/10/17 Shady Medina MD, MS [address] [place] [phone] [email or web address] Historical LMR Provider 07/10/17 09/30/21 Radha Licona, SCANNING TECH [address] [place] [id number] [email or web address] Historical LMR Provider 07/10/17 2 Melissa Chaney, SCANNING TECH [address] [place] [address] Historical LMR Provider 07/10/17 documented as of this encounter Additional Source Comments The information contained in this document represents components of the legal health record. It is not the complete legal health record.[facility]
--- OUTSIDE RECORDS SUMMARY | 2025-07-26 07:44 | XMS_ITS | Encounter Summary ---
Author Organization [facility] Address [address] [place] [id number] Phone Care Team Providers Care Ingredient Specialist Name Role Phone Sylvester Driscoll MD Unavailable Huy Ansari MD Unavailable [phone] Shady Medina MD, [place] Unavailable [phone] Radha Licona [employer] Unavailable Melissa Chaney [employer] Unavailable [phone] Melissa Chaney [employer] Primary Care Provider [phone] Unknown, Unknown Primary Care Provider Zoraida stewart Encounter Details Date Type Department Care Team (Late st Contact Info) Description 04/16/2019 Ancillary Orders [facility],Outside Imaging [address], [place] [id number] System, Provider Not In, [place] [address] Social History Tobacco Use Types Packs/Day Years [...] documented as of this encounter Results * Mammogram Outside (No [...] Noted Time PHQ-2 Depression Total Score: 0 04/15/20 19 9:30 AM EDT documented as of this encounter Care Teams Ingredient Specialist Relationship Specialty Start Date End Date Melissa Chaney NP [address] [place] [address] [email or web address] PCP - General Family Medicine 10/14/17 12/02/23 Unknown, Unknown, PCP - General 12/03/23 Sylvester Driscoll MD [address] [place] [id number] [email or web address] Historical LMR Provider 07/10/17 09/30/21 Huy Ansari MD [address] [place] [address] [email or web address] Historical LMR Provider 07/10/17 Shady Medina MD, MS [address] [place] [id number] Historical LMR Provider 07/10/17 09/30/21 Radha Licona NP [address] [place] [address] [email or web address] Historical LMR Provider 07/10/17 2 Melissa Chaney NP [address] [place] [address] [email or web address] Historical LMR Provider 07/10/17 documented as of this encounter Additional Source Comments The information contained in this document represents components of the legal health record. It is not the complete legal health record.[facility]
--- OUTSIDE RECORDS SUMMARY | 2025-07-26 07:44 | XMS_ITS | Clinical Summary ---
Author Organization [facility] Address [facility] [address], [address] [place] [address] Care Team Providers Care Manager Servicing Name Role Phone Jason Castaneda MD Primary Care Provider [phone] Source Comments [facility] (Labor and Delivery) documents do not appear in the Encounter Summary [facility] Medications * This document contains information received from the source organization and may not represent a complete record from that organization. * Please verify current medications with patient. losartan (COZAAR) 50 mg tablet Take 1 tablet by mouth every day 12/23/2023 Active gabapentin (NEURONTIN) 300 mg capsule TAKE 1 CAPSULE TWICE DAILY. 12/23/2023 Active propranoloL (INDERAL) 10 mg tablet TAKE 1 TABLET TWICE DAILY. 12/23/2023 Active cholecalciferol (VITAMIN D-3) 50 mcg (2,000 unit) tablet TAKE 1 TABLET DAILY. 02/14/2024 Active traZODone (DESYREL) 50 mg tablet TAKE 1/2 TO 1 TABLET NEEDED AT BEDTIME FOR INSOMNIA 03/24/2024 Active buPROPion (WELLBUTRIN XL) 300 mg XL tablet TAKE 1 TABLET BY MOUTH DAILY 10/21/2024 Active lamoTRIgine (LAMICTAL) 100 mg tablet TAKE 1 TABLET TWICE DAILY. 05/19/2025 Active rivaroxaban (XARELTO) 20 mg tab tablet Take 20 mg by mouth in the morning. 12/23/2023 Active Active Problems Problem Noted Date Diagnosed Date Stage 2 chronic kidney disease 06/16/2025 Right leg swelling 06/16/2025 Overview (06/16/2025): Impression: ongoing, u/s RLE ordered.Recorded On: Dec 23 2023 9:32AM Recorded By: TERRI,SANDYImpression: ongoing, u/s RLE ordered.Recorded On: Dec 23 2023 9:32AM Recorded By: NEGIN MCNAMARAmpression: ongoing, u/s RLE ordered.Recorded On: Dec 23 2023 9:32AM Recorded By: SHEREEN MCNAMARAYImpression: ongoing, u/s RLE ordered.Recorded On: Dec 23 2023 9:32AM Recorded By: NEGIN MCNAMARAmpgarrettion: ongoing, u/s RLE ordered.Recorded On: Dec 23 2023 9:32AM Recorded By: MAGALY MCNAMARA Recurrent major depression 06/16/2025 Overview (06/16/2025): Impression: Worsening. Has not been able to sell her home. Denied SI/HI. Will continue bupropion and increase lamotrigine.Recorded On: May 19 2025 7:55AM Recorded By: Logan BALL. Denied SI/HI. Will continue plan of care.Recorded On: Apr 01 2025 7:57AM Recorded By: Diana BALLwhat improved. Had recent confrontation with daughter in law. Denied SI/HI. Will increase lamotrigine to 25mg 2 tab po bid.Recorded On: Feb 17 2025 7:52AM Recorded By: Mathieu BALL. Stated she was feeling better but mood is now very depressed. She was tearful and asking for assistance in finding a therapist for counseling. Will refer to Aileen KEYSW.Recorded On: Dec 31 2024 2:40PM Recorded By: Harry BALL mood improved with bupropion. Will continue bupropion XL 300mg 1 tab po daily. Denied SI/HI.Recorded On: Dec 16 2024 8:10AM Recorded By: Harry BALL mood improved with bupropion. Will increase bupropion XL to 300mg 1 tab po daily. Denied SI/HI.Recorded On: Oct 21 2024 7:55AM Recorded By: Tushar BALL to assess today. She did not answer any direct assessment questions. Patient was very upset with this provider today. Elevated speech volume through this visit. She verbalized that her medications were sent to the mail delivery pharmacy instead of her [facility]. She verbalized that this provider is useless and requested that her medications were refilled and sent to the correct pharmacy. It appears to this provider that medications are being sent to the [facility]' pharmacy. This provider re-sent all psychotropics and asked the office to call her to offer her another appointment with another provider or this one if she is agreeable.Recorded On: Aug 19 2024 8:02AM Recorded By: Rodrigue URENA improving symptoms with the addition of bupropion xl. She requests to only be on one antidepressant. Will stat tapering down sertraline to 37.5 mg daily for 2 weeks and then lower to 25 mg po daily. She denies thoughts of self harm, suicidal and homicidal ideations.Recorded On: Jul 23 2024 8:08AM Recorded By: Toby URENA chart: endorsed periodic depression last visit. Patient did not want to speak with this provider. She has refills for her current prescribed psychotropics. Will reach out to her therapist and have the office call to schedule a new appointment with her preferred provider.Recorded On: Jul 08 2024 7:50AM Recorded By: Rodrigue URENA intermittent depression. Will start bupropion and continue sertraline. Will d/c lamotrigine. Denied suicidal or homicidal ideations.Recorded On: Jun 10 2024 7:53AM Recorded By: Monica BALL. Will continue sertraline to 50mg 1 tab po daily for depression and anxiety. Denied suicidal or homicidal ideation.Recorded On: Mar 24 2024 8:50AM Recorded By: Logan BALL. Will increase sertraline to 50mg 1 tab po daily for depression and anxiety. Denied suicidal or homicidal ideation.Recorded On: Jan 28 2024 8:16AM Recorded By: Thais BALL. Stated that the escitalopram is not helping in alleviating symptoms of depression and anxiety. Denies suicidal or homicidal ideation. Will discontinue escitalopram and start sertraline 25 mg 1 tablet daily for depression and anxiety.Recorded On: Dec 26 2023 4:40PM Recorded By: NATHALIE BALL 06/16/2025 Overview (06/16/2025): Impression: dermatology referralRecorded On: Dec 23 2023 9:32AM Recorded By: Rosaline MCNAMARAion: dermatology referralRecorded On: Dec 23 2023 9:32AM Recorded By: Tom MCNAMARA: dermatology referralRecorded On: Dec 23 2023 9:32AM Recorded By: Tom MCNAMARA: dermatology referralRecorded On: Dec 23 2023 9:32AM Recorded By: Tom MCNAMARA: dermatology referralRecorded On: Dec 23 2023 9:32AM Recorded By: MAGALY MCNAMARA Pure hypercholesterolemia 06/16/2025 Pulmonary nodule 06/16/2025 Overview (06/16/2025): Impression: stable, continue to follow.Recorded On: Dec 23 2023 9:32AM Recorded By: Tom MCNAMARA: stable, continue to follow.Recorded On: Dec 23 2023 9:32AM Recorded By: Tom MCNAMARA: stable, continue to follow.Recorded On: Dec 23 2023 9:32AM Recorded By: Tom MCNAMARA: stable, continue to follow.Recorded On: Dec 23 2023 9:32AM Recorded By: Tom MCNAMARA: stable, continue to follow.Recorded On: Dec 23 2023 9:32AM Recorded By: MAGALY MCNAMARA Prediabetes 06/16/2025 Paroxysmal atrial fibrillation (HCC-Multiple) Other thrombophilia (HCC-HHS) 06/16/2025 Overview (06/16/2025): Impression: Stable, continue current medication Xarelto. Continue to monitor.Recorded On: Dec 23 2023 9:32AM Recorded By: Tom MCNAMARA: Stable, continue current medication Xarelto. Continue to monitor.Recorded On: Dec 23 2023 9:32AM Recorded By: Tom MCNAMARA: Stable, continue current medication Xarelto. Continue to monitor.Recorded On: Dec 23 2023 9:32AM Recorded By: Tom MCNAMARA: Stable, continue current medication Xarelto. Continue to monitor.Recorded On: Dec 23 2023 9:32AM Recorded By: Tom MCNAMARA: Stable, continue current medication Xarelto. Continue to monitor.Recorded On: Dec 23 2023 9:32AM Recorded By: MAGALY MCNAMARA Obesity, class 3 ([facility]) 06/16/2025 Need for antibiotic prophylaxis for dental proce dure 06/16/2025 Overview (06/16/2025): Impression: Advised patient antibiotics are needed prior to dental procedures for patients having invasive dental procedures who have a h/o cardiac conditions or implanted devices to prevent endocarditis. She has a previous h/o rampant infection b/c incorrect tooth was removed causing large abcess and subsequent lung infection. Recommend she get documentation from her dentist going forward if antibiotics are needed. Currently, the patient states she takes Amoxicillin before all dental procedure in the past, therefore Amoxicillin ordered.Recorded On: May 07 2024 1:42PM Recorded By: Omkar LAW: Advised patient antibiotics are needed prior to dental procedures for patients having invasive dental procedures who have a h/o cardiac conditions or implanted devices to prevent endocarditis. She has a previous h/o rampant infection b/c incorrect tooth was removed causing large abcess and subsequent lung infection. Recommend she get documentation from her dentist going forward if antibiotics are needed. Currently, the patient states she takes Amoxicillin before all dental procedure in the past, therefore Amoxicillin ordered.Recorded On: May 07 2024 1:42PM Recorded By: Omkar LAW: Advised patient antibiotics are needed prior to dental procedures for patients having invasive dental procedures who have a h/o cardiac conditions or implanted devices to prevent endocarditis. She has a previous h/o rampant infection b/c incorrect tooth was removed causing large abcess and subsequent lung infection. Recommend she get documentation from her dentist going forward if antibiotics are needed. Currently, the patient states she takes Amoxicillin before all dental procedure in the past, therefore Amoxicillin ordered.Recorded On: May 07 2024 1:42PM Recorded By: Omkar LAW: Advised patient antibiotics are needed prior to dental procedures for patients having invasive dental procedures who have a h/o cardiac conditions or implanted devices to prevent endocarditis. She has a previous h/o rampant infection b/c incorrect tooth was removed causing large abcess and subsequent lung infection. Recommend she get documentation from her dentist going forward if antibiotics are needed. Currently, the patient states she takes Amoxicillin before all dental procedure in the past, therefore Amoxicillin ordered.Recorded On: May 07 2024 1:42PM Recorded By: JOEY LAWImpression: Advised patient antibiotics are needed prior to dental procedures for patients having invasive dental procedures who have a h/o cardiac conditions or implanted devices to prevent endocarditis. She has a previous h/o rampant infection b/c incorrect tooth was removed causing large abcess and subsequent lung infection. Recommend she get documentation from her dentist going forward if antibiotics are needed. Currently, the patient states she takes Amoxicillin before all dental procedure in the past, therefore Amoxicillin ordered.Recorded On: May 07 2024 1:42PM Recorded By: JOEY LAW HENDERSON (nonalcoholic steatohepatitis) 06/16/2025 Insomnia 06/16/2025 Overview (06/16/2025): Impression: Sleep pattern is fair. Has not been taking sleep aid.Recorded On: May 19 2025 7:55AM Recorded By: Stephanie BALL pattern is good with trazodone. Takes trazodone on some days.Recorded On: Apr 01 2025 7:57AM Recorded By: Stephanie BALL pattern is good with trazodone. Takes trazodone on some days.Recorded On: Feb 17 2025 7:52AM Recorded By: Stephanie BALL pattern is good with trazodone.Recorded On: Dec 31 2024 2:40PM Recorded By: Stephanie BALL pattern is good with trazodone.Recorded On: Oct 21 2024 7:55AM Recorded By: Tushar BALL to assess today. She did not answer any direct assessment questions. Patient was very upset with this provider today. Elevated speech volume through this visit. She verbalized that her medications were sent to the mail delivery pharmacy instead of her [facility]. She verbalized that this provider is useless and requested that her medications were refilled and sent to the correct pharmacy. It appears to this provider that medications are being sent to the [facility]' pharmacy. This provider re-sent all psychotropics and asked the office to call her to offer her another appointment with another provider or this one if she is agreeable.Recorded On: Aug 19 2024 8:02AM Recorded By: Rodrigue URENA improving sleep with the addition of Trazodone prn.Recorded On: Jul 23 2024 8:08AM Recorded By: Deirdre URENA. 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) 06/16/2025 Hypertensive kidney disease with chronic kidney disease 06/16/2025 Essential hypertension 06/16/2025 Overview (06/16/2025): Impression: Well controlled and stable, continue current medications. Encourage heart healthy, low sodium diet. Encourage a minimum of 150 minutes/week of moderate physical activity. Will continue to monitor.Recorded On: Dec 23 2023 9:32AM Recorded By: Tom MCNAMARA: Well controlled and stable, continue current medications. Encourage heart healthy, low sodium diet. Encourage a minimum of 150 minutes/week of moderate physical activity. Will continue to monitor.Recorded On: Dec 23 2023 9:32AM Recorded By: Tom MCNAMARA: Well controlled and stable, continue current medications. Encourage heart healthy, low sodium diet. Encourage a minimum of 150 minutes/week of moderate physical activity. Will continue to monitor.Recorded On: Dec 23 2023 9:32AM Recorded By: Tom MCNAMARA: Well controlled and stable, continue current medications. Encourage heart healthy, low sodium diet. Encourage a minimum of 150 minutes/week of moderate physical activity. Will continue to monitor.Recorded On: Dec 23 2023 9:32AM Recorded By: MAGALY MCNAMARA Decreased GFR 06/16/2025 Compulsive skin picking 06/16/2025 Overview (06/16/2025): Impression: BH referral, was on lorazepam in the past, will follow.Recorded On: Dec 23 2023 9:32AM Recorded By: Tom MCNAMARA: BH referral, was on lorazepam in the past, will follow.Recorded On: Dec 23 2023 9:32AM Recorded By: Tom MCNAMARA: BH referral, was on lorazepam in the past, will follow.Recorded On: Dec 23 2023 9:32AM Recorded By: NEGIN MCNAMARAmpression: referral, was on lorazepam in the past, will follow.Recorded On: Dec 23 2023 9:32AM Recorded By: NEGIN MCNAMARAmpression: BH referral, was on lorazepam in the past, will follow.Recorded On: Dec 23 2023 9:32AM Recorded By: MAGALY MCNAMARA Anxiety 06/16/2025 Overview (06/16/2025): Impression: Reports skin picking behaviors. Will increase lamotrigine.Recorded On: May 19 2025 7:55AM Recorded By: Chemo BALL. Will continue current medications.Recorded On: Apr 01 2025 7:57AM Recorded By: Harry BALL anxiety. Denied SI/HI. Will increase lamotrigine.Recorded On: Feb 17 2025 7:52AM Recorded By: Delano BALLening. Denied SI/HI. Will restart lamotrigine.Recorded On: Dec 31 2024 2:40PM Recorded By: Nadia BALL improved. Denied SI/HI. Stated she requested to see a therapist and referral was sent by PCP. She would like to [facility] to [facility] for medication management services.Recorded On: Dec 16 2024 8:10AM Recorded By: Nadia BALL improved. Denied SI/HI. Stated she no longer wants to take sertraline and prefers bupropion. Will d/c sertraline.Recorded On: Oct 21 2024 7:55AM Recorded By: Tushar BALL to assess today. She did not answer any direct assessment questions. Patient was very upset with this provider today. Elevated speech volume through this visit. She verbalized that her medications were sent to the mail delivery pharmacy instead of her [facility]. She verbalized that this provider is useless and requested that her medications were refilled and sent to the correct pharmacy. It appears to this provider that medications are being sent to the [facility]' pharmacy. This provider re-sent all psychotropics and asked the office to call her to offer her another appointment with another provider or this one if she is agreeable.Recorded On: Aug 19 2024 8:02AM Recorded By: Ruthann URENA but reports improving symptoms with the addition of bupropion xl. She requests to only be on one antidepressant. Will stat tapering down sertraline to 37.5 mg daily for 2 weeks and then lower to 25 mg po daily. She denies suicidal and homicidal ideations.Recorded On: Jul 23 2024 8:08AM Recorded By: Toby URENA chart: Ongoing. Patient did not want to speak with this provider. She has refills for her current prescribed psychotropics. Will reach out to her therapist and have the office call to schedule a new appointment with her preferred provider.Recorded On: Jul 08 2024 7:50AM Recorded By: Ruthann URENA. Denied suicidal or homicidal ideations. Will continue sertraline. Patient restarted taking hydroxyzine as needed or approximately 2-3x/week, She does not need refills at this time.Recorded On: Jun 10 2024 7:53AM Recorded By: Thais BALL. Denied suicidal or homicidal ideations. Will continue sertraline. Patient did not like sedating effect of hydroxyzine and will discontinue.Recorded On: Mar 24 2024 8:50AM Recorded By: Thais BALL. Denied suicidal or homicidal ideations. Will increase sertraline and start hydroxyzine as needed.Recorded On: Jan 28 2024 8:16AM Recorded By: Thais BALL. Denied suicidal or homicidal ideations. Will discontinue escitalopram and start sertraline 25 mg 1 tablet daily for depression and anxiety.Recorded On: Dec 26 2023 4:40PM Recorded By: Chemo BALL, denies SI/HI, refer to .Recorded On: Dec 23 2023 9:32AM Recorded By: MAGALY MCNAMARA Encounters * This document contains information received from the source organization and may not represent a complete record from that organization. Date Type Department Care Team Description 06/12/2025 Abstract GENERIC EXTERNAL DATA DEPARTMENT Provider, Generic External Data from Last 3 Months Social History Tobacco Use Types Packs/Day Years Used Date Smoking Tobacco: Never Assessed Comments Unknown Sex and Gender Information Value Date Recorded Sex Assigned at Not on file Legal Sex Female 5:29 PM MDT Gender Identity Not on file Sexual Orientation Not on file Last Filed Vital Signs Vital Sign Reading Time Taken Comments Blood Pressure 128/68 11/24/2024 9:21 AM PST Pulse 63 11/24/2024 8:38 AM PST Temperature 36.3 C (97.4 F) 11/24/2024 8:38 AM PST Respiratory Rate 16 11/24/2024 8:38 AM PST Oxygen Saturation 98% 11/24/2024 8:38 AM PST Inhaled Oxygen Concentration - - Weight 126.8 kg (279 lb 8 oz) 11/24/2024 8:38 AM PST Height 162.6 cm (5' 4 ) 11/24/2024 8:38 AM PST Body Mass Index 47.98 11/24/2024 8:38 AM PST Plan of Treatment Health Maintenance Due Date Last Done Comments Breast Cancer Screening 1955 Hepatitis C Screening 1955 Osteoporosis Screening 1955 Tetanus Diphtheria and Pertussis Vaccines (1 - Tdap) 1976 CT Colonography 2002 Colonoscopy 2002 Sigmoidoscopy 2002 gFOBT or FIT 2002 Pneumococcal Vaccine: 50+ Years (1 of 1 - PCV) 2007 RSV Vaccines (1 - Risk 50-74 years 1-dose series) 2007 Zoster Vaccines (1 of 2) 2007 COVID-19 Vaccine (1 - season) 2025 Influenza Vaccine (#1) 2025 05/18/2024 Colon Cancer Screening 01/06/2027 DNA-based stool test (Cologuard) 01/06/2027 01/07/2024 Diabetes Screening 11/16/2027 11/16/2024, 0 11/16/2024, 05/13/2024, Additional history exists HPV Vaccine Aged Out No longer eligi ble based on patient's age to complete this topic Hepatitis A Vaccine Aged Out No longe r eligible based on patient's age to complete this topic Hepatitis B Vaccine Aged Out No longe r eligible based on patient's age to complete this topic Hib Vaccine Aged Out No longer eligi ble based on patient's age to complete this topic IPV Vaccine Aged Out No longer eligi ble based on patient's age to complete this topic Meningococcal B Vaccine Aged Out No l onger eligible based on patient's age to complete this topic Meningococcal Vaccine (MCV4) Aged Out No longer eligible based on patient's age to complete this topic Rotavirus Vaccine Aged Out No longer eligible based on patient's age to complete this topic Procedures Procedure Name Priority Date/Time Associated Diagnosis Comments HEMOGLOBIN A1C WITH EAG Routine 11/16/2024 1:00 AM [facility] COLORECTAL CANCER SCREEN DNA-BASED STOOL TEST SEND-OUT (COLOGUARD - [employer] ONLY) Routine 01/07/2024 1:00 AM MDT from Last 3 Months or Most Recently Relevant to Health Maintenance Results * (ABNORMAL) Hemoglobin A1c with eAG (11/16/2024 1:00 AM [facility]) Estimated Average Glucose 117 mg/dL [facility] Hemoglobin A1C 5.7(H) <5.7 % of total Hgb [facility] Comment:Performing Comments: For someone without known diabetes, a hemoglobin A1c value between 5.7% and 6.4% is consistent withprediabetes and should be confirmed with a follow-up test. For someone with known diabetes, a value <7%indicates that their diabetes is well controlled. [id number] should be individualized based on duration ofdiabetes, age, comorbid conditions, and otherconsiderations. This assay result is consistent with an increased riskof diabetes. Currently, no consensus exists regarding use ofhemoglobin A1c for diagnosis of diabetes for children. 1,5 - Anhydroglucitol 6.5 mmol/L [facility] 11/16/2024 1:00 AM [facility] 11/16/2024 1:00 AM [facility] us Jason Castaneda MD LAB BLOOD ORDERABLES Final Resul t [facility] * Colorectal Cancer Screen DNA-based stool test Send-out (Cologuard ??? [employer] Only) (01/07/2024 1:00 AM MDT) COLOGUARD RESULT Negative [facility] Comment: Performing Comments: NEGATIVE TEST RESULT. A negative Cologuard result indicates a low likelihood that a colorectal cancer (CRC) or advanced adenoma (adenomatous polyps with more advanced pre-malignant features) is present. The chance that a person with a negative Cologuard test has a colorectal cancer is less than 1 in 1500 (negative predictive value >99.9%) or has an advanced adenoma is less than 5.3% (negative predictive value 94.7%). These data are based on a prospective cross-sectional study of 10,000 individuals at average risk for colorectal cancer who were screened with both Cologuard and colonoscopy. (Wendy Pradhan et al, N Engl J Med 2014;370(14):4190-7094) The normal value (reference range) for this assay is negative.COLOGUARD RE-SCREENING RECOMMENDATION: Periodic colorectal cancer screening is an important part of preventive healthcare for asymptomatic individuals at average risk for colorectal cancer. Following a negative Cologuard result, the [place] [employer] and U.S. Multi-Society Task Force screening guidelines recommend a Cologuard re-screening interval of 3 years. References: [place] [employer] Guideline for Colorectal Cancer Screening: https://www.cancer.org/cancer/plets-cartiq-afnomk/abehraerl-hkqlpowtn-qwlfwas/ac s-rec ommendations.html.; Yohannes MUHAMMAD, Rosalina JACOBS, Shahab FelixK, Colorectal Cancer Screening: Recommendations for Physicians and Patients from the U.S. Multi-Society Task Force on Colorectal Cancer Screening , Am J Gastroenterology 2017; 112:0284-3332.TEST DESCRIPTION: Composite algorithmic analysis of stool DNA-biomarkers with hemoglobin immunoassay. Quantitative values of individual biomarkers are not reportable and are not associated with individual biomarker result reference ranges. Cologuard is intended for colorectal cancer screening of adults of either sex, 45 years or older, who are at average-risk for colorectal cancer (CRC). Cologuard has been approved for use by the U.S. FDA. The performance of Cologuard was established in a cross sectional study of average-risk adults aged 50-84. Cologuard performance in patients ages 45 to 49 years was estimated by sub-group analysis of near-age groups. Colonoscopies performed for a positive result may find as the most clinically significant lesion: colorectal cancer [4.0%], advanced adenoma (including sessile serrated polyps greater than or equal to 1cm diameter) [20%] or non- advanced adenoma [31%]; or no colorectal neoplasia [45%]. These estimates are derived from a prospective cross-sectional screening study of 10,000 individuals at average risk for colorectal cancer who were screened with both Cologuard and colonoscopy. (Wendy Pradhan et al, N Engl J Med 2014;370(14):4706-2354.) Cologuard may produce a false negative or false positive result (no colorectal cancer or precancerous polyp present at colonoscopy follow up). A negative Cologuard test result does not guarantee the absence of CRC or advanced adenoma (pre-cancer). The current Cologuard screening interval is every 3 years. ([place] [employer] and U.S. Multi- Society Task Force). Cologuard performance data in a 10,000 patient pivotal study using colonoscopy as the reference method can be accessed at the following location: www.[facility]/results. Additional description of the Cologuard test process, warnings and precautions can be found at [email or web address].com. 01/07/2024 1:00 AM MDT 01/07/2024 1:00 AM MDT Magaly Mcnamara NP BODY FLUIDS & STOOLS ORDERABLES Final Result TOUCHWORKS from Last 3 Months or Most Recently Relevant to Health Maintenance Insurance RISK DEL HUMANA SR Care Teams Manager Servicing Relationship Specialty Start Date End Date Jason Castaneda MD [address] [facility] [address] [place], [place] [id number] PCP - General 02/22/24
--- OUTSIDE RECORDS SUMMARY | 2025-07-26 07:44 | XMS_ITS | Encounter Summary ---
Author Organization [facility] Address [address] [place], [place] [id number] Phone Care Team Providers Care Electrotherapist Name Role Phone Sylvester Driscoll MD Unavailable [phone] Huy Ansari MD Unavailable [phone] Shady Medina MD, MS Unavailable [phone] Radha Licona WASHER MEAT Unavailable [phone] Melissa Chaney WASHER MEAT Unavailable [phone] Huy Ansari MD Primary Care Provider [phone] Melissa Chaney WASHER MEAT Primary Care Provider Unknown, Unknown Primary Care Provider Zoraida stewart Encounter Details Date Type Department Care Team (Latest Contact Info) Description 08/26/2017 Ancillary Orders [facility] Pulmonary, Allergy and Critical Care Medicine [address] [place] [address] Sylvester Driscoll MD [address] [address] 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 Social History Tobacco Use Types Packs/Day Years Used Date Smoking Tobacco: Former Smokeless Tobacco: Never Comments Unknown Sex and Gender Information Value Date Recorded Sex Assigned at Female 12/24/2019 6:39 PM EDT Legal Sex Female 9:52 PM EDT Gender Identity Female 12/24/2019 6:39 PM EDT Sexual Orientation Straight 12/24/2019 6: 39 PM EDT documented as of this encounter Plan of Treatment Not on file documented as of this encounter Results * XR CHEST PA AND LATERAL 2 VIEWS (08/26/2017 1:36 PM EST) Anatomical Region Laterality Modality Chest Radiographic Lorene ging 08/26/2017 1:41 PM EST Impressions 08/26/2017 1:45 PM EST No evidence of pneumonia. POS - [id number] Narrative 08/26/2017 1:45 PM EST HISTORY: As above. COMPARISON: Chest x-ray 06/04/2017. CT chest 06/27/2017. CHEST RADIOGRAPH FINDINGS: 3 views obtained. Heart and mediastinum are normal. Lungs are clear. Bones and soft tissues are stable. No acute findings. Procedure Note Dayanara Bacon MD - 08/26/2017 HISTORY: As above. COMPARISON: Chest x-ray 06/04/2017. CT chest 06/27/2017. CHEST RADIOGRAPH FINDINGS: 3 views obtained. Heart and mediastinum are normal. Lungs are clear.Bones and soft tissues are stable. No acute findings. IMPRESSION: No evidence of pneumonia. 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 documented in this encounter Additional Health Concerns Infection Onset Date Last Indicated Resolved Time CoV-Exposed Comment:Recent close contact 08/05/2020 08/05/2020 08/19/2020 1:24 AM EST CoV-Risk 08/17/2020 08/19/2020 08/31/2020 1:24 AM EST documented as of this encounter Care Teams Electrotherapist Relationship Specialty Start Date End Date Huy Ansari MD [address] [place] [address] [email or web address] PCP - General 07/11/17 10/13/17 Melissa Chaney, WASHER MEAT [address] [place] [id number] PCP - General Family Medicine 10/14/17 12/02/23 Unknown, Alyx, MD PCP - General 12/03/23 Sylvester Driscoll MD [address] [place] [address] [email or web address] Historical LMR Provider 07/10/17 09/30/21 Huy Ansari MD [address] [place] [address] [email or web address] Historical LMR Provider 07/10/17 Shady Medina MD, MS [address] [place] [address] [email or web address] Historical LMR Provider 07/10/17 09/30/21 Radha Licona NP [address] [place] [phone] [email or web address] Historical LMR Provider 07/10/17 2 Melissa Chaney, WASHER MEAT [address] [place] [address] [email or web address] Historical LMR Provider 07/10/17 documented as of this encounter Additional Source Comments The information contained in this document represents components of the legal health record. It is not the complete legal health record.[facility]
--- OUTSIDE RECORDS SUMMARY | 2025-07-26 07:44 | XMS_ITS | Encounter Summary ---
Author Organization [facility] Address [address] [place] [phone] Phone Care Team Providers Care Soaking Pit Operator Name Role Phone Sylvester Driscoll MD Unavailable [phone] Huy Ansari MD Unavailable Shady Medina MD, MS Unavailable [phone] Radha Licona PREPARATION OPERATOR Unavailable Melissa Chaney PREPARATION OPERATOR Unavailable [phone] Melissa Chaney PREPARATION OPERATOR Primary Care Provider [phone] Unknown, Unknown Primary Care Provider Zoraida stewart Encounter Details Date Type Department Care Team (Late st Contact Info) Description 11/30/2019 Procedure Pass [facility] Endoscopy Admitting Dept Virtual Department [address] [place] [address] Social History Tobacco Use Types Packs/Day Years Used Date Smoking Tobacco: Former Cigarettes 0.5 10 1 10/28/1976 - 08/27/1987 Smokeless Tobacco: Never Comments:vaps Alcohol Use Standard Drinks/Week Comments Yes 0 (1 standard drink = 0.6 oz pur e alcohol) rarely Comments No Sex and Gender Information Value [...] Noted Time PHQ-2 Depression Total Score: 0 10/16/19 12:59 PM EST documented as of this encounter Care Teams Soaking Pit Operator Relationship Specialty Start Date End Date Melissa Chaney, PREPARATION OPERATOR [address] [place] [address] [email or web address] PCP - General Family Medicine 10/14/17 12/02/23 Unknown, Unknown, MD PCP - General 12/03/23 Sylvester Driscoll MD [address] [place] [phone] [email or web address] Historical LMR Provider 07/10/17 09/30/21 Huy Ansari MD [address] [place] [phone] [email or web address] Historical LMR Provider 07/10/17 Shady Medina MD, MS [address] [place] [address] [email or web address] Historical LMR Provider 07/10/17 09/30/21 Radha Licona, PREPARATION OPERATOR [address] [place] [address] [email or web address] Historical LMR Provider 07/10/17 2 Melissa Chaney, PREPARATION OPERATOR [address] [place] [address] [email or web address] Historical LMR Provider 07/10/17 documented as of this encounter Additional Source Comments The information contained in this document represents components of the legal health record. It is not the complete legal health record.[facility]
--- NOTE | 2025-07-26 07:49 | A.OFFPC_ITS ---
Vital Signs 07/26/25 07:53 07/26/25 12:01 Height 5 ft 3.46 in Weight 117.48 kg BMI 45.2 BP 130/72 130/72 Blood Pressure Location Lt brachial Position Sitting Respiration 20 Pulse 81 Pulse Source Pulse Oximeter Temp 97.4 F Temp Source Temporal Artery Scan Pulse Oximetry (%) 95 Oxygen Delivery Method Room Air Intake Visit Reasons: New pt, resched Dietary Internship Required: No Accompanied by: Self / Same As Patient Allergies levofloxacin (From LEVAQUIN) Allergy (Severe, Verified 07/26/25 09:06) fall, knees give out Medication List - Last Reconciled 07/26/25 by BELEM Ma aripiprazole (Abilify) 1 mg PO DAILY bupropion HCl XL (Wellbutrin XL) 300 mg PO QAM cholecalciferol (vitamin D3) 125 mcg PO DAILY hydroxyzine HCl 25 mg PO ONCE PRN lamotrigine 150 mg PO DAILY losartan 50 mg PO DAILY multivitamin 1 tab PO DAILY propranolol 20 mg PO BID rivaroxaban 20 mg PO DAILY trazodone 25 mg PO BEDTIME PRN Tobacco use date assessed: 07/26/25 Fall risk assessment: No Falls in past year Last assessed Fall Risk: 07/26/25 Dental Screening Dental Screen Date: 07/26/25 Did you have a dental visit in the last 12 months?: Yes Did you have a dental problem in the last 6 months where you did not have access to dental care?: No Was dental information given to patient?: Patient has dentist HPI HPI Comments History of Present Illness Details 70-year-old female with history of parox ysmal atrial fibrillation/flutter, bipolar/major depressive disorder, hypertension, thoracic aortic atherosclerosis, pulmonary nodules presenting to the office today for management of chronic conditions and to establish care. She was previously a patient here but then moved to [place] and has since moved back to the area. Bipolar/major depressive disorder-follows with Melissa Chaney for both therapy and psychiatry. Currently feeling depressed and is tearful at times during the office visit due to some interpersonal issues with her son and alasuh-qy-qfl as well as her new grandchild. She reports she did have an episode where she had squeezed her forearm so hard she did sustain a scratch but has never actively attempted suicide and has no current SI or plan. Recently started on Abilify. Also remains on bupropion 300 mg XL and lamotrigine 150 mg daily as well as propranolol 20 mg twice daily and trazodone PRN. Paroxysmal atrial fibrillation-following with Dr. Nichole again since return to the area. Recently seen in our ER due to anxiety and palpitations. There was no tachycardia or accompanying symptoms such as chest pain, dyspnea, lightheadedness, orthopnea or PND. She did leave AMA. She has since seen ca rdiology and is scheduled to undergo Holter monitor, echo. On Xarelto for anticoagulation and propranolol. Hypertension-on losartan 50 mg daily and propranolol 20 mg twice daily. Hyperlipidemia-brings labs from [place] total cholesterol 202, LDL direct 106, triglycerides 176 Pulmonary nodules-last CT showed stable small permanent or nodules Concerns: None Health maintenance: Due for mammogram Cologuard 1 year ago-negative Due for DEXA scan Overdue for lung cancer screening-ordered by Dr. Caruso ROS: General: No fevers, malaise, unintentional weight loss HEENT: No blurred vision, diplopia. No sore throat, nasal congestion, rhinorrhea, sinus pain, ear pain Cardiovascular: No chest pain, palpitations, or leg edema Respiratory: No shortness of breath, wheezing, cough GI: No abdominal pain, nausea, vomiting, diarrhea, constipation, melena, hematochezia : No dysuria, hematuria, increased urinary frequency, decreased urinary output MSK: No myalgia, back pain Neuro: No headaches, weakness, paresthesias Skin: No rashes or lesions EXAM: Constitutional - Awake and Alert, No apparent distress Eyes - PERRL Cardiovascular - S1S2, RRR, 1+ edema Respiratory - Normal lung expansion, Normal respiratory effort, No respiratory distress, CTA bilaterally Extremities - no calf tenderness bilaterally, no swelling. Varicose veins noted Skin - Warm/Dry Neurological - Alert & oriented x3 Psychological - Appropriate affect [facility] Medical History (Updated 07/26/25 @ 08:10 by BELEM Ma) Major depression [id number] syndrome Smoking Chronic allergic rhinitis Pulmonary nodules Dyspnea LVH (left ventricular hypertrophy) Thoracic aortic atherosclerosis PAF (paroxysmal atrial fibrillation) HTN (hypertension) Surgical History Hx of colonoscopy Hx of cholecystectomy Hx of section Family History Father Sudden cardiac Mother Chronic a-fib Social History Housing: House Patient Tobacco Use Status: Former Tobacco user Tobacco use type: Cigarette Years Smoked: smokes marijuana, quit cigarettes former 1ppd smoker-15 Years e-Cigarette/Vaping Use: Never Used service: No Current occupational status: retired Questionnaire AUDIT C Alcohol Use Questionnaire (AUDIT-C) 1. How often do you have a drink containing alcohol?: Monthly or less 2. How many drinks containing alcohol do you have on a typical day when you are drinking?: 1 or 2 Total Score: 1 Physical exam (Primary Care) Vital Signs: Last Vital Signs Temp 97.4 F 07/26/25 07:53 Pulse 81 07/26/25 07:53 Resp 20 07/26/25 07:53 BP 130/72 07/26/25 07:53 Pulse Ox 95 07/26/25 07:53 Oxygen Delivery Method Room Air 07/26/25 07:53 BMI result Body Mass Index 45.2 Tobacco/Smoking Status: Tobacco use Status Tobacco use date assessed 07/26/25 07/26/25 07:52 Patient Tobacco Use Status Former Tobacco user 07/26/25 07:52 Tobacco use type Cigarette 07/26/25 07:52 e-Cigarette/Vaping Use Never Used 07/26/25 08:04 Coding Level of Care Code New Pt Level 4 (67537) Complex EM visit Add On G2211 Diagnoses PAF (paroxysmal atrial fibrillation) I48.0 HTN (hypertension) I10 Major depression F32.9 Pulmonary nodules R91.8 Assessment & Plan Assessment & Plan (1) PAF (paroxysmal atrial fibrillation): Code(s): I48.0 - Paroxysmal atrial fibrillation Category: Medical Plan: Rate controlled. Reviewed most recent cardiology note, proceed with echocardiogram and Holter monitor as ordered. Continue Xarelto for anticoagulation as well as propranolol. (2) HTN (hypertension): Code(s): I10 - Essential (primary) hypertension Category: Medical Plan: Controlled. Continue propranolol 20 mg twice daily and losartan 50 mg daily. Renal function and electrolyte levels normal from the ED 06/2025 (3) Major depression: Code(s): F32.9 - Major depressive disorder, single episode, unspecified Category: Medical Plan: Stable. Continue following with psychiatrist/therapist. No alarm symptoms at this time. Continue Abilify, bupropion, propranolol, trazodone PRN. (4) Pulmonary nodules: Code(s): R91.8 - Other nonspecific abnormal finding of lung field Category: Medical Plan: Proceed with lung cancer screening as ordered by product test specialist. Reviewed pulmonology notes as well as last CAT scan from 06/2022 showing stable small nodules. Former smoker. Plan Follow-up in the office in 6 months, sooner if needed. Mammogram and DEXA scan ordered. Orders: Orders MM tomosynthesis screening BI Today Z12.31 - Encounter for screening mammogram for malignant neoplasm of breast Lipid Panel Today Z13.220 - Encounter for screening for lipoid disorders XR DEXA axial skeleton Today E55.9 - Vitamin D deficiency, unspecified, M89.8X9 - Other specified disorders of bone, unspecified site, N95.9 - Unspecified menopausal and perimenopausal disorder, Z13.820 - Encounter for screening for osteoporosis
[2025-07-26 07:53] VITALS: BP 130/72; PULSE 81; RESP 20; TEMP 36.3; O2SAT 95; BMI 45.2
[2025-07-26 12:01] VITALS: BP 130/72
== END 2025-07-26 08:34 | disposition home or self-care (01) ==
LOC: HO.HMCHD 07:41
PROVIDERS: PCP Physician Assistant; Visit Provider Physician Assistant
DX: I48.0 Paroxysmal atrial fibrillation (principal); I10 Essential (primary) hypertension; F32.9 Major depressive disorder, single episode, unspecified; R91.8 Other nonspecific abnormal finding of lung field

== ENCOUNTER 2025-07-26 08:45 | Outpatient (AMB) | payer OTHER, SELFPAY ==
[2025-07-26 09:04] VITALS: BP 160/90; PULSE 85; O2SAT 100; BMI 44.8
--- NOTE | 2025-07-26 09:04 | A.OFFVIS_ITS ---
Vital Signs 07/26/25 09:04 Height 5 ft 4 in Weight 261 lb 3.964 oz BMI 44.8 BP 160/90 H Blood Pressure Location Lt brachial Position Sitting Pulse 85 Pulse Source Pulse Oximeter Pulse Oximetry (%) 100 Oxygen Delivery Method Room Air Intake Visit Reasons: Pulmonary Nodule Production Generalist Required: No Accompanied by: Self / Same As Patient Allergies levofloxacin (From LEVAQUIN) Allergy (Severe, Verified 07/26/25 09:06) fall, knees give out HPI Comments Details: The patient is a 70-year-old woman who has a smoking history presenting with worsening respiratory symptoms. Apparent the patient states that several years ago she had a dental procedure and was complicated by a lung abscess. She was treated in evaluated at [facility] at the time. Has that she had a CT scan of the chest demonstrating pulmonary nodules. She has had CT scans monitoring the nodules. I do not have access to those CAT scans at this time. The patient continues to smoke. She understands the smoking is a risk because of her underlying pulmonary nodules. Any smoking of any type will be dangerous for her cancer risk. Therefore at this point I will refer her to the lung cancer screening program in order to be further evaluated. The patient has not been using any inhalers at this time. She does go to the gym regularly. She has been complaining of dyspnea on exertion. She does take metoprolol in takes it every other day. Her shortness of breath is mainly when she is exercising. At this point we will have her undergo blood work in addition to pulmonary function studies and then address her respiratory medications. In the meantime will try her on singular. 10/27/2020 the patient is here for pulmonary follow-up visit. Overall the patient has been doing okay. She continues to have the shortness of breath when she is at the gym lifting weights. Fkkd-ax-sbypvahd severity. The patient did not try the singular. She did undergo her pulmonary function studies and we personally reviewed in the office. Appears that she has evidence of small airways disease. No significant obstructiveor restrictive ventilatory defects noted. Or explain the patient that this may be that she has some degree of asthma or potentially a small airways disease. Will be reasonable to treat her with a short-acting beta agonist to see if she gets some relief. But, we also talked about the problems with heavy lifting along with Valsalva maneuvers. Decreased intrathoracic pressure will potentially reduce preload and will result in increased cardiac work in that can also cause shortness of breath. Therefore, I recommended that she try to minimize heavy lifting to avoid Valsalva maneuvers specially as were trying to improve her respiratory status. The patient is open to trying inhaler 15-30 minutes prior to exercise to see if we can provide optimize bronchodilation and optimize airway capacity prior to exercise. She can hold off on the singular at this time. We did review her blood work in the significant allergies noted. The patient is also start working on it aerobic capacity work on weight loss to overall improve her health status. 07/07/2021 the patient is here for a pulmonary follow-up visit. Overall she is feeling better. She had an episodic back and left-sided discomfort that concerned her and she decided to come back to the ER. In the ER she did undergo a CTA demonstrating stable pulmonary nodules which is reassuring. In addition to that no evidence of any recurrent thromboembolic disease. She continues on the Xarelto. She continues to exercise regularly. She continues with respiratory therapy. Has not required her short-acting beta agonist. Otherwise patient is without any other complaints. Therefore we will have to do a CAT scan until next year fall 2021. Will follow-up then to review the CT scan. 06/27/2022 the patient is here for a pulmonary follow-up visit. The patient developed COVID sometime in the beginning of the summer. Ultimately after that she developed worsening cough and shortness of breath and chest tightness. Her symptoms are moderate severity. The patient did take tmtk-xij-[id number] medications with only partial resolution of the symptoms. However, now her symptoms are getting better and she is feeling better. She still has a productive cough with tannish mucus. She does complaint of some chest tightness. Although no significant audible wheezing that she can appreciate. On examination she does have a prolonged expiratory phase. She does have a history atrial fibrillation. Will try her on small dose of Symbicort 1 puff at a time. Hopefully the patient can tolerated. She develops any tremulousness or palpitations she has to stop the medication. In addition to that she does have productive cough saw start her on a short course of azithromycin specially since she has a big trip planned for next week. 01/18/2023 the patient is here for pulmonary follow-up visit. The patient is doing a lot better. She has recovered significantly. She is exercising regularly. She still has shortness of breath primarily when laying flat. She does sleep on her side. The patient has gained weight since the last few weeks. She understands that she would be better but if she slept a little bit more elevated. The respiratory symptoms to clear up when she stands up. The patient has not been using the Symbicort. She has not seen a need for a. In addition to that she has been using the mustache therapy that is been really helpful in opening up lung capacity. We did review her last CT scan of the chest done back in June 2022 as part of the lung cancer screening program. She does have stable pulmonary nodules and has some mild coronary artery calcifications. The patient also have atelectasis in the slight elevation of the right hemidiaphragm. Now these findings are significant although she will continue to have follow-up CT scans. The patient is doing well she can follow-up in a year's time were as needed. 07/26/2025 the patient is here for pulmonary follow-up visit. The patient had moved to [place] for many years. She just recently moved back to the area and is getting situated. Respiratory barry she does have some dyspnea on exertion qgmn-up-rfcgcvxs severity. She also was having issues with increased cardiac heart rates. She did go to the ER where she did have an EKG that was abnormal suggesting a flutter or a junctional escape rhythm. The patient is not following up with Cardiology. She denies any snoring or any sleep apnea. She has not been using any respiratory inhalers at this time. The patient does carry a diagnosis of COPD. Will go ahead and request a pulmonary function study this time. In addition to that the patient had been smoking. She was taking part in the lung cancer screening program and her last CT scan through the lung cancer screening program was back in 2021 and was a rads 2. Will go ahead and refer her again to the lung cancer screening program to see if she still qualifies. In addition to that I do believe that pulmonary rehab will be good for her. She does have some wheezing right now although with a new diagnosis of cardiac arrhythmia hold off on beta agonist therapy. If she does need a short- acting bronchodilators can try short-acting muscarinic antagonist that she can use as needed. She would like to hold off at this time. If she does need she can always call. In the meantime will wait for her pulmonary function studies to see about pulmonary rehabilitation. The patient will return in 6-8 months if she has any issues prior to that she can always call for recommendations. 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 Smoking Chronic allergic rhinitis Pulmonary nodules Dyspnea LVH (left ventricular hypertrophy) Thoracic aortic atherosclerosis PAF (paroxysmal atrial fibrillation) HTN (hypertension) Surgical History Hx of colonoscopy Hx of cholecystectomy Hx of section Family History Father Sudden cardiac Mother Chronic a-fib Social History Housing: House Patient Tobacco Use Status: Former Tobacco user Tobacco use type: Cigarette Years Smoked: smokes marijuana, quit cigarettes former 1ppd smoker-15 Years e-Cigarette/Vaping Use: Never Used service: No Current occupational status: retired Review of Systems Const Denies night sweats ENT Denies change in voice, Denies lip swelling, Denies mouth pain, Reports nasal congestion, Reports nasal discharge and Denies tongue swelling Card Denies chest pain and Denies dyspnea on exertion Resp Denies chest congestion, Reports cough and Denies dyspnea on exertion GI Denies abdominal pain Musc Reports as per HPI, Reports abnormal gait and Reports back pain Neuro Denies Neuro-related abnormal movements and Reports abnormal gait Psych Denies no additional complaints Haim/Lymph Denies easy bleeding and Denies lymphadenopathy Aller/Immun Denies lip swelling and Denies tongue swelling Physical Exam Vital Signs: Last Vital Signs Pulse 85 07/26/25 09:04 BP 160/90 H 07/26/25 09:04 Pulse Ox 100 07/26/25 09:04 Oxygen Delivery Method Room Air 07/26/25 09:04 BMI result Body Mass Index 44.8 Const General: alert HEENT General nose exam: Abnormal external nose present and Nasal discharge present Eyes Pupils: Equal, round and reactive pupils present Neck Neck: Yes normal visual inspection, Yes full ROM and Yes no lymphadenopathy Chest Chest palpation & inspection: normal inspection of the chest Resp Auscultation: no wheezes, diminished lung sounds and no other (prolonged exhalation) Cardio Rhythm: regular rhythm Heart sounds: S1 normal heart sound present and S2 normal heart sound present GI Palpation (GI): Soft to palpation and nontender Auscultation: normal bowel sounds General: Yes no CVA tenderness Back/Spine/Pelvis Back: no CVA tenderness Skin General skin exam: rashes and/or lesions noted Neuro Cranial nerves: Yes Equal, round and reactive pupils present Extrem General: Yes no clubbing, cyanosis or edema Assessment & Plan Assessment & Plan (1) Pulmonary nodules: Code(s): R91.8 - Other nonspecific abnormal finding of lung field Category: Medical (2) Dyspnea: Code(s): R06.00 - Dyspnea, unspecified Category: Medical Qualifiers: Dyspnea type: dyspnea on exertion Qualified Code(s): R06.00 - Dyspnea, unspecified (3) Chronic allergic rhinitis: Code(s): J30.9 - Allergic rhinitis, unspecified Category: Medical (4) Smoking: Comment: The patient is high risk for lung caancer Code(s): F17.200 - Nicotine dependence, unspecified, uncomplicated Category: Social Hx Plan PFTs consider Pulmonary rehab consider [facility] Lung cancer screening program F/U 12 months Orders: Orders PFT pulmonary function test Today R06.00 - Dyspnea, unspecified Referrals Lung Cancer Screening Referral F17.200 - Nicotine dependence, unspecified, unc omplicated Coding Level of Care Code Est Pt Level 5 (24793) Diagnoses Pulmonary nodules R91.8 Dyspnea on exertion R06.00 Dyspnea type: dyspnea on exertion Chronic allergic rhinitis J30.9 Smoking F17.200 Time Spent (min) 45
== END 2025-07-26 09:29 | disposition home or self-care (01) ==
PROVIDERS: Visit Provider Hospitalist
DX: R91.8 Other nonspecific abnormal finding of lung field (principal); R06.00 Dyspnea, unspecified; J30.9 Allergic rhinitis, unspecified; F17.200 Nicotine dependence, unspecified, uncomplicated
CPT/HCPCS: 99215

== ENCOUNTER → 2025-07-30 07:42 | Outpatient (REF) | payer OTHER, SELFPAY ==
--- OUTSIDE RECORDS SUMMARY | 2011-08-15 | XMS_ITS | Encounter Summary ---
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
--- OUTSIDE RECORDS SUMMARY | 2025-07-30 07:43 | XMS_ITS | Patient Health Record ---
Author Organization [facility] CastilloTyndall Address [address] [facility] [facility] [place] [address] Care Team Providers Care Label Rewinder Name Role Phone Melissa Chaney NP Primary Care Provider Honorio Murillo [phone] Allergies No Known Allergies Reason For Referral [...] Problem Acquired hammer toe of right foot (8079253470927 105) Other hammer toe(s) (acquired), right foot (M20.41) Active confirmed Problem Acquired hammer toe of left foot (4135335990155 103) Other hammer toe(s) (acquired), left foot (M20.42) Active confirmed Plan Of Treatment Pending Test Test Name Order Date X ray : Foot, left 3V 12/21/2020 Insurance Providers Payer Name Payer Address Payer Phone Subscriber Number Group Number Insured Name Patient Relationship to Insured Coverage Start Date Coverage End Date [facility] [address] [place] [address] [id number] Tc Wallace Spouse - patient is the spouse of the insured Medical (General) History Medical History History ICD Code chicken pox Anxiety Broken bones Scarlet fever Measles Mumps Chicken pox Arthritis - Degenerative 719.97 Arthritis - Degenerative 729.5 Pain in Limb 754.61 Flat Foot, Congenital 728.71 Plantar Fasciitis Surgical History Surgery Date(Month/Year) cholecystectomy
--- OUTSIDE RECORDS SUMMARY | 2025-07-30 07:44 | XMS_ITS | Clinical Summary ---
Author Organization [facility] Address [address] [place], [place] [id number] Phone Care Team Providers Care Sharepoint Admin Name Role Phone Huy Ansari MD Unavailable [phone] Karon Chaney NP Unavailable [phone] Unknown, Unknown Primary Care Provider Zoraida [...] this topic Medical Devices Implanted Type Area Flight Data Technician Device Identifier Shelf Expiration Date Model / Serial / Lot Clip Hemostasis Resolution 360 Lf Nonsterile 2.8mm Channel 360deg 235cm Bx/20ea - [id number] Implanted:Qty: 1 on 11/30/2019 by Yolanda Brooke MD at [facility] [employer] [id number] / / Description:Right colon poly p at 85 Clip Hemostasis Resolution 360 Lf Nonsterile 2.8mm Channel 360deg 235cm Bx/20ea - [id number] Implanted:Qty: 1 on 11/30/2019 by Yolanda Brooke MD at [facility] [employer] [id number] / / Description:Colon polyp at 6 0 [...] EST Routine general medical examination at a [facility] care facility BI MAMMOGRAM SCREENING WITH TOMOSYNTHESIS WITH CAD (BILATERAL) Routine 04/28/2019 8:32 AM EDT Screening for breast cancer from Last 3 Months or Most Recently Relevant to Health Maintenance Results * (ABNORMAL) Comprehensive metabolic panel (06/26/2023 11:46 AM EDT) SODIUM 140 133 - 146 mmol/L [facility] POTASSIUM 4.4 3.3 - 5.1 mmol/L [facility] CHLORIDE 101 96 - 108 mmol/L [facility] CO2 32 21 - 35 mmol/L [facility] BUN 18 6 - 19 mg/dL [facility] CREATININE 0.90 0.5 - 1.5 mg/dL [facility] GLUCOSE 101(H) 70 - 99 mg/dL [facility] ALBUMIN 4.0 3.9 - 4.8 g/dL [facility] TOTAL PROTEIN 6.9 6.5 - 8.0 g/dL [facility] CALCIUM 9.7 8.4 - 10.3 mg/dL [facility] ALKALINE PHOSPHATASE 83 39 - 117 U/L [facility] TOTAL BILIRUBIN <0.2 0.0 - 1.2 mg/dL [facility] AST 27 0 - 37 U/L [facility] ALT 28 0 - 40 U/L [facility] GLOBULIN 2.9 1 - 4.8 g/dL [facility] EGFR 71 >59 mL/min/1.7 3m2 [facility] Comment:Estimated glomerular filtration rate calculated using the CKD-EPI refit equation. ANION GAP 11 10 - 20 mmol/L [facility] Blood 06/26/2023 11:4 6 AM EDT 06/26/2023 11:50 AM EDT Karon Chaney NP LAB BLOOD BKR ORDERABLES Final Result Performing Organization Address [facility] Co de Phone Number [address] [address] * (ABNORMAL) Lipid panel (06/26/2023 11:46 AM EDT) HDL 62 mg/dL [facility] Comment: Interpretation <40 mg/dL: Low HDL cholesterol (major risk factor for CHD) Greater than or equal to 60 mg/dL: High HDL cholesterol ( negative risk factor for CHD) HDL - cholesterol is affected by a number of factors, e.g. smoking, excerise, hormones, sex and age. CHOLESTEROL 197 0 - 240 mg/dL [facility] TRIGLYCERIDES 147 30 - 160 mg/dL [facility] LDL 106 50 - 129 mg/dL [facility] Comment: LDL levels in terms of risk for coronary heart disease: <100 mg/dL: Optimal 100-129 mg/dL: Near or above optimal 130-159 mg/dL: Borderline high 160-189 mg/dL: High >190 mg/dL: Very High CARDIAC RISK RATIO 3.2(L) 3.3 - 4.4 C [facility] Blood 06/26/2023 11:4 6 AM EDT 06/26/2023 11:50 AM EDT us Karon Chaney NP LAB BLOOD BKR ORDERABLES Final Result Performing Organization Address [facility]/ZIP Co de Phone Number [address] [address] * BD DXA AXIAL (SPINE) WITH HIP [...] bone mineral density was calculated at 0.830 gm/zy9tqku a T- score of -0.2 falling within [...] IMPRESSION: Normal bone density. us Karon Chaney PUBLIC EVENTS FACILITIES RENTAL MANAGER IMG BD BONE DENSITY DEXA Final Result * ENDOSCOPY, COLON (11/30/2019 11:22 AM EDT) Narrative Transcriptions Yolanda Brooke MD - 11/30/2019 11:22 AM EDT Patient Name: Jocelyne Wallace Attending MD:: YOLANDA BROOKE MD Procedure Date: 11/30/2019 11:22 AM Date of : 1955 Age: 64 Admit Type: Outpatient Gender: Female Room: [place] [address] Referring MD: KARON CHANEY Exam Type: Colonoscopy [...] monitored continuously. The Olympus adult variable colonoscope [id number] #4was introduced through the anus and advanced [...] 11:22 AM Procedure Code(s): --- Professional --- 12516, Colonoscopy, flexible; with removal of tumor(s), polyp(s), or other lesion(s) by snare technique --- Technical --- 16018, Colonoscopy, flexible; with removal of tumor(s), polyp(s), [...] bowel syndrome without diarrhea CPT copyright 2018 [employer]. All rights reserved. The codes documented in this report are preliminary and upon income tax expert reviewmay be revised to meet current compliance requirements. Procedure Date: 11/30/2019 11:22:[address] [place] [address] [id number] us Karon Chaney NP GI PROCEDURE ORDERABLES Final R esult * Hepatitis C antibody, qualitative (10/20/2019 8:01 AM EST) HCV NON-REACTIV E NON-REACTI VE [facility] Blood 10/20/2019 8:01 AM EST 10/20/2019 8:06 AM EST us Karon Chaney NP LAB BLOOD BKR ORDERABLES Final Result [facility] [address] [place] [address] * BI MAMMOGRAM SCREENING WITH TOMOSYNTHESIS WITH [...] BLUE REPLACEMENT MEDICARE PART A & B [facility] MEDICARE PPO BLUE REPLACEMENT MEDICARE PART A & B [facility] MEDICARE PPO BLUE REPLACEMENT MEDICARE PART A & [place] [address] [place] [address] MEDICARE PPO BLUE REPLACEMENT MEDICARE PART A & B [facility] MEDICARE PPO BLUE REPLACEMENT Member Subscriber Plan / Payer (Ef fective 2022-Present) Name:Jocelyne Wallace Relation to Subscriber:Self Name:Jocelyne Wallace Payer ID:[id number] (NAIC) Type:Medicare Address: [place] [id number] Care Teams Sharepoint Admin Relationship Specialty Start Date End Date Unknown, Unknown, MD PCP - General 12/03/23 Huy Ansari MD [address] [place] [address] [email or web address] Historical LMR Provider 07/10/17 Karon Chaney NP [address] [place] [address] [email or web address] Historical LMR Provider 07/10/17 Additional Source Comments The information contained in this document represents components of the legal health record. It is not the complete legal health record.[facility]
--- OUTSIDE RECORDS SUMMARY | 2025-07-30 07:44 | XMS_ITS | Encounter Summary ---
Author Organization [facility] Address [address] [place] [address] Phone Care Team Providers Care Foundry Technician Name Role Phone Huy Ansari MD Unavailable [phone] Melissa Chaney DATA ANALYTICS ANALYST Unavailable [phone] Melissa Chaney DATA ANALYTICS ANALYST Primary Care Provider [phone] Unknown, Unknown Primary Care Provider Zoraida stewart Encounter Details Date Type Department Care Team (Late st Contact Info) Description 07/02/2023 Procedure Pass [facility] Endoscopy Admitting Dept Virtual Department [address] [place] [address] Social History Tobacco Use Types Packs/Day Years [...] high school, GED, job training, learning the Urdu language, technical skills, or developing parenting skills)? [...] documented as of this encounter Care Teams Foundry Technician Relationship Specialty Start Date End Date Melissa Chaney NP [address] [place] [address] PCP - General Family Medicine 10/14/17 12/02/23 Unknown, Unknown, MD PCP - General 12/03/23 Huy Ansari MD [address] [place] [address] Historical LMR Provider 07/10/17 Melissa Chaney NP [address] [place] [phone] [email or web address] Historical LMR Provider 07/10/17 documented as of this encounter Additional Source Comments The information contained in this document represents components of the legal health record. It is not the complete legal health record.[facility]
--- OUTSIDE RECORDS SUMMARY | 2025-07-30 07:44 | XMS_ITS | Clinical Summary ---
Author Organization [facility] Address Formerly [facility] [address], [address] [place] [address] Care Team Providers Care Day Habilitation Specialist Name Role Phone Unavailable Primary Care Provider Unavailabl e Source Comments STORK (Labor and Delivery) documents do not appear in the Encounter Summary [facility] Allergies No known active allergies Medications * This document contains information received from the source organization and may not represent a complete record from that organization. * Please verify current medications with patient. losartan (COZAAR) 50 mg tablet Take 1 tablet by mouth every day 4 Active gabapentin (NEURONTIN) 300 mg capsule TAKE 1 CAPSULE TWICE DAILY. 4 Active cholecalciferol (VITAMIN D-3) 50 mcg (2,000 unit) tablet TAKE 1 TABLET DAILY. 4 Active traZODone (DESYREL) 50 mg tablet TAKE 1/2 TO 1 TABLET NEEDED AT BEDTIME FOR INSOMNIA 4 Active buPROPion (WELLBUTRIN XL) 300 mg XL tablet TAKE 1 TABLET BY MOUTH DAILY 5 Active lamoTRIgine (LAMICTAL) 100 mg tablet TAKE 1 TABLET TWICE DAILY. 5 Active rivaroxaban (XARELTO) 20 mg tab tablet Take 20 mg by mouth in the morning. 4 Active propranoloL (INDERAL) 10 mg tablet Take 1 tablet (10 mg) by mouth in the morning and 1 tablet (10 mg) before bedtime. 180 tablet 1 5 Active propranoloL (INDERAL) 10 mg tablet TAKE 1 TABLET TWICE DAILY. 4 07/12/20 25 Discontinu ed(Reorder ) Active Problems Problem Noted Date Diagnosed Date Stage 2 chronic kidney disease 06/16/2025 Right leg swelling 06/16/2025 Overview (06/16/2025): Impression: ongoing, u/s RLE ordered.Recorded On: Dec 23 2023 9:32AM Recorded By: NEGIN MCNAMARAmpgarrettion: ongoing, u/s RLE ordered.Recorded On: Dec 23 2023 9:32AM Recorded By: NEGIN MCNAMARAmpgarrettion: ongoing, u/s RLE ordered.Recorded On: Dec 23 2023 9:32AM Recorded By: Rosaline MCNAMARAion: ongoing, u/s RLE ordered.Recorded On: Dec 23 2023 9:32AM Recorded By: NEGIN CMNAMARAmpgarrettion: ongoing, u/s RLE ordered.Recorded On: Dec 23 2023 9:32AM Recorded By: MAGALY MCNAMARA Recurrent major depression 06/16/2025 Overview (06/16/2025): Impression: Worsening. Has not been able to sell her home. Denied SI/HI. Will continue bupropion and increase lamotrigine.Recorded On: May 19 2025 7:55AM Recorded By: Logan BALL. Denied SI/HI. Will continue plan of care.Recorded On: Apr 01 2025 7:57AM Recorded By: Pam BALLat improved. Had recent confrontation with daughter in [...] that medications are being sent to the [facility]' pharmacy. This provider re-sent all psychotropics [...] MAGALY MCNAMARA Prediabetes 06/16/2025 Paroxysmal atrial fibrillation ([facility]) Other thrombophilia ([facility]) 06/16/2025 Overview (06/16/2025): Impression: Stable, continue current [...] Recorded By: MAGALY MCNAMARA Obesity, class 3 ([facility]) 06/16/2025 Need for antibiotic prophylaxis for [...] that medications are being sent to the [facility] pharmacy. 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 Denied SI/HI. Will restart lamotrigine.Recorded On: Dec 31 2024 2:40PM Recorded By: Nadia BALL improved. Denied SI/HI. Stated she requested to see a therapist and referral was sent by PCP. She would like to continue to see [facility] behavioral health for medication management services.Recorded On: [...] that medications are being sent to the [facility] pharmacy. This provider re-sent all psychotropics and [...] of 2) 2007 COVID-19 Vaccine (1 - 2024- season) 2025 Influenza Vaccine (#1) 2025 05/18/2024 [...] A1C WITH EAG Routine 11/16/2024 1:00 AM [facility] COLORECTAL CANCER SCREEN DNA-BASED STOOL TEST SEND-OUT ([employer] ONLY) Routine 01/07/2024 1:00 AM MDT from Last 3 Months or Most Recently Relevant to Health Maintenance Results * (ABNORMAL) Hemoglobin A1c with eAG (11/16/2024 1:00 AM [facility]) Estimated Average Glucose 117 mg/dL [facility] Hemoglobin A1C 5.7(H) <5.7 % of total Hgb [facility] Comment:Performing Comments: For someone without known diabetes, a hemoglobin A1c value between 5.7% and 6.4% is consistent withprediabetes and should be confirmed with a follow-up test. For someone with known diabetes, a value <7%indicates that their diabetes is well controlled. [id number] should be individualized based on duration ofdiabetes, age, comorbid conditions, and otherconsiderations. This assay result is consistent with an increased riskof diabetes. Currently, no consensus exists regarding use ofhemoglobin A1c for diagnosis of diabetes for children. 1,5 - Anhydroglucitol 6.5 mmol/L [facility] 11/16/2024 1:00 AM [facility] 11/16/2024 1:00 AM [facility] us Jason Castaneda MD LAB BLOOD ORDERABLES Final Resul t [facility] * Colorectal Cancer Screen DNA-based stool test Send-out ([employer] ??? [employer] [facility] Only) (01/07/2024 1:00 AM MDT) COLOGUARD RESULT [...] screened with both Cologuard and colonoscopy. (Wendy Beard al, N Engl J Med 2014;370(14):0133-5060) The normal value (reference range) for this assay is negative.COLOGUARD RE-SCREENING RECOMMENDATION: Periodic colorectal cancer screening is an important part of preventive healthcare for asymptomatic individuals at average risk for colorectal cancer. Following a negative Cologuard result, the [place] [employer] and U.S. Multi-Society Task Force screening guidelines recommend a Cologuard re-screening interval of 3 years. References: [place] [employer] Guideline for Colorectal Cancer Screening: https://www.cancer.org/cancer/vnkox-pmzxut-hshtwq/xnmrkysbo-gxvmxaeew-eeugtxk/ac s-rec ommendations.html.; Yohannes DK, Rosalina CR, Shahab FelixK, Colorectal Cancer Screening: Recommendations for Physicians and Patients from the U.S. Multi-Society Task Force on Colorectal Cancer Screening , Am J Gastroenterology 2017; 112:7537-4898.TEST DESCRIPTION: Composite algorithmic analysis of stool DNA-biomarkers [...] screened with both Cologuard and colonoscopy. (Wendy Beard al, N Engl J Med 2014;370(14):4418-1313.) Cologuard may produce a false negative or false positive result (no colorectal cancer or precancerous polyp present at colonoscopy follow up). A negative Cologuard test result does not guarantee the absence of CRC or advanced adenoma (pre-cancer). The current Cologuard screening interval is every 3 years. ([employer] [employer] and U.S. Multi- Society Task Force). Cologuard performance data in a 10,000 patient pivotal study using colonoscopy as the reference method can be accessed at the following location: www.Anomo.Space Ape/results. Additional description of the Cologuard test process, warnings and precautions can be found at www.cologuard.com. 01/07/2024 1:00 AM MDT 01/07/2024 1:00 AM MDT Magaly Mcnamara NP BODY FLUIDS & STOOLS ORDERABLES Final Result [facility] from Last 3 Months or Most Recently Relevant to Health Maintenance
--- OUTSIDE RECORDS SUMMARY | 2025-07-30 07:44 | XMS_ITS | Encounter Summary ---
Author Organization [facility] Address [address] [place] [address] Phone Care Team Providers Care Field Technical Assistant Name Role Phone Yolanda Driscoll MD Unavailable [phone] Huy Ansari MD Unavailable [phone] Shady Medina MD, MS Unavailable Radha Licona SENIOR DATA MINING ANALYST Unavailable [phone] Melissa Chaney SENIOR DATA MINING ANALYST Unavailable [phone] eMlissa Chaney SENIOR DATA MINING ANALYST Primary Care Provider [phone] Unknown, Unknown Primary Care Provider Zoraida stewart Encounter Details Date Type Department Care Team (Late st Contact Info) Description 03/04/2018 Ancillary Orders [facility], X-Ray - [address] [place] [address] Huy Ansari MD [address] [place] [address] [email or web address] Productive cough Social History Tobacco Use Types [...] No evidence of active cardiopulmonary disease. POS [id number] Narrative 03/04/2018 9:11 AM EDT Frontal and [...] No evidence of active cardiopulmonary disease. POS [id number] us Huy Ansari MD IMG XR CHEST [...] documented as of this encounter Care Teams Field Technical Assistant Relationship Specialty Start Date End Date Melissa Chaney, SENIOR DATA MINING ANALYST [address] [place] [address] PCP - General Family Medicine 10/14/17 12/02/23 Unknown, Aylx, PCP - General 12/03/23 Yolanda Driscoll MD [address] [place] [address] Historical LMR Provider 07/10/17 09/30/21 Huy Ansari MD [address] [place] [address] Historical LMR Provider 07/10/17 Shady Medina MD, MS [address] [place] [address] [email or web address] Historical LMR Provider 07/10/17 09/30/21 Radha Licona, SENIOR DATA MINING ANALYST [address] [place] [address] [email or web address] Historical LMR Provider 07/10/17 2 Melissa Chaney, SENIOR DATA MINING ANALYST [address] [place] [address] Historical LMR Provider 07/10/17 documented as of this encounter Additional Source Comments The information contained in this document represents components of the legal health record. It is not the complete legal health record.[facility]
--- OUTSIDE RECORDS SUMMARY | 2025-07-30 07:44 | XMS_ITS | Encounter Summary ---
Author Organization [facility] Address [address] [place], [place] [id number] Phone Care Team Providers Care Manufacturing Process Technician Name Role Phone Sylvester Driscoll MD Unavailable [phone] Huy Ansari MD Unavailable Shady Medina MD, MS Unavailable Radha Licona PARTS EXPEDITER Unavailable [phone] Melissa Chaney PARTS EXPEDITER Unavailable [phone] Huy Ansari MD Primary Care Provider [phone] Melissa Chaney PARTS EXPEDITER Primary Care Provider Unknown, Unknown Primary Care Provider Zoraida stewart Encounter Details Date Type Department Care Team (Latest Contact Info) Description 08/26/2017 Ancillary Orders [facility] Medical [facility] Pulmonary, Allergy and Critical Care Medicine [address] [place] [address] Sylvester Driscoll MD [address] [address] Pneumonia of left lower lobe due to [...] documented as of this encounter Care Teams Manufacturing Process Technician Relationship Specialty Start Date End Date Huy Ansari MD [address] [place] [address] [email or web address] PCP - General 07/11/17 10/13/17 Melissa Chaney, PARTS EXPEDITER [address] [place] [address] PCP - General Family Medicine 10/14/17 12/02/23 Unknown, Alyx, MD PCP - General 12/03/23 Sylvester Driscoll MD [address] [place] [address] [email or web address] Historical LMR Provider 07/10/17 09/30/21 Huy Ansari MD [address] [place] [address] [email or web address] Historical LMR Provider 07/10/17 Shady Medina MD, MS [address] [place] [address] [email or web address] Historical LMR Provider 07/10/17 09/30/21 Radha Licona NP [address] [place] [address] [email or web address] Historical LMR Provider 07/10/17 2 Melissa Chaney, PARTS EXPEDITER [address] [place] [address] [email or web address] Historical LMR Provider 07/10/17 documented as of this encounter Additional Source Comments The information contained in this document represents components of the legal health record. It is not the complete legal health record.[facility]
--- OUTSIDE RECORDS SUMMARY | 2025-07-30 07:44 | XMS_ITS | Encounter Summary ---
Author Organization [facility] Address [address] [place] [address] Phone Care Team Providers Care Bar Machine Operator Production Name Role Phone Sylvester Driscoll MD Unavailable [phone] Huy Ansari MD Unavailable [phone] Shady Medina MD, MS Unavailable [phone] Radha Licona STOCKROOM CLERK Unavailable Melissa Chaney STOCKROOM CLERK Unavailable [phone] Melissa Chaney STOCKROOM CLERK Primary Care Provider [phone] Unknown, Unknown Primary Care Provider Zoraida stewart Encounter Details Date Type Department Care Team (Late st Contact Info) Description 03/04/2018 Ancillary Orders [facility] Medical [facility] Internal Medicine [address] [place] [address] Huy Ansari MD [address] [place] [address] [email or web address] Social History Tobacco Use Types Packs/Day Years [...] documented as of this encounter Care Teams Bar Machine Operator Production Relationship Specialty Start Date End Date Melissa Chaney STOCKROOM CLERK [address] [place] [address] [email or web address] PCP - General Family Medicine 10/14/17 12/02/23 Unknown, Unknown, MD PCP - General 12/03/23 Sylvester Driscoll MD [address] [place] [address] [email or web address] Historical LMR Provider 07/10/17 09/30/21 Huy Ansari MD [address] [place] [address] Historical LMR Provider 07/10/17 Shady Medina MD, MS [address] [place] [address] Historical LMR Provider 07/10/17 09/30/21 Radha Licona STOCKROOM CLERK [address] [place] [address] [email or web address] Historical LMR Provider 07/10/17 2 Melissa Chaney NP [address] [place] [address] [email or web address] Historical LMR Provider 07/10/17 documented as of this encounter Additional Source Comments The information contained in this document represents components of the legal health record. It is not the complete legal health record.[facility]
--- OUTSIDE RECORDS SUMMARY | 2025-07-30 07:44 | XMS_ITS | Encounter Summary ---
Author Organization [facility] Address [address] [place] [address] Phone Care Team Providers Care Sustainability Coach Name Role Phone Sylvester Driscoll MD Unavailable [phone] Huy Ansari MD Unavailable Shady Medina MD, MS Unavailable Radha Licona TELEMETRY TECHNICIAN Unavailable Melissa Chaney TELEMETRY TECHNICIAN Unavailable [phone] Melissa Chaney TELEMETRY TECHNICIAN Primary Care Provider Unknown, Unknown Primary Care Provider Zoraida stewart Encounter Details Date Type Department Care Team (Late st Contact Info) Description 11/30/2019 Procedure [facility] Endoscopy Admitting Dept Virtual Department [address] [place] [address] Social History Tobacco Use Types Packs/Day Years [...] documented as of this encounter Care Teams Sustainability Coach Relationship Specialty Start Date End Date Melissa Chaney, TELEMETRY TECHNICIAN [address] [place] [address] [email or web address] PCP - General Family Medicine 10/14/17 12/02/23 Unknown, Unknown, MD PCP - General 12/03/23 Sylvester Driscoll MD [address] [place] [address] [email or web address] Historical LMR Provider 07/10/17 09/30/21 Huy Ansari MD [address] [place] [address] [email or web address] Historical LMR Provider 07/10/17 Shady Medina MD, MS [address] [place] [address] [email or web address] Historical LMR Provider 07/10/17 09/30/21 Radha Licona, TELEMETRY TECHNICIAN [address] [place] [address] [email or web address] Historical LMR Provider 07/10/17 2 Melissa Chaney, TELEMETRY TECHNICIAN [address] [place] [address] [email or web address] Historical LMR Provider 07/10/17 documented as of this encounter Additional Source Comments The information contained in this document represents components of the legal health record. It is not the complete legal health record.[facility]
--- OUTSIDE RECORDS SUMMARY | 2025-07-30 07:44 | XMS_ITS | Encounter Summary ---
Author Organization [facility] Address [facility]ly [facility] Social Pulse [address] [address] Phone Care Team Providers Care Fiberglass Finisher Name Role Phone Sylvester Driscoll MD Unavailable [phone] Huy Ansari MD Unavailable [phone] Shady Medina MD, MS Unavailable [phone] Radha Licona SAND OPERATOR Unavailable [phone] Melissa Chaney SAND OPERATOR Unavailable [phone] Melissa Chnaey SAND OPERATOR Primary Care Provider [phone] Unknown, Unknown Primary Care Provider Zoraida stewart Encounter Details Date Type Department Care Team (Late st Contact Info) Description 04/16/2019 Ancillary Orders [facility],Outside Imaging [address] [place], [place] [phone] System, Provider Not In, [place] [address] Social History Tobacco Use Types Packs/Day Years [...] documented as of this encounter Care Teams Fiberglass Finisher Relationship Specialty Start Date End Date Melissa Chaney NP [address] [place] [address] [email or web address] PCP - General Family Medicine 10/14/17 12/02/23 Unknown, Unknown, PCP - General 12/03/23 ySlvester Driscoll MD [address] [place] [address] [email or web address] Historical LMR Provider 07/10/17 09/30/21 Huy Ansari MD [address] [place] [address] [email or web address] Historical LMR Provider 07/10/17 Shady Medina MD, MS [address] [place] [address] Historical LMR Provider 07/10/17 09/30/21 Radha Licona NP [address] [place] [address] [email or web address] Historical LMR Provider 07/10/17 2 Melissa Chaney NP [address] [place] [address] [email or web address] Historical LMR Provider 07/10/17 documented as of this encounter Additional Source Comments The information contained in this document represents components of the legal health record. It is not the complete legal health record.[facility]
--- NOTE | 2025-07-30 07:45 | CA_ITS ---
Transthoracic Echocardiogram Patient (Last, First, Middle): Jocelyne Wallace S Gender: F Date of : 1955 Age: 70 Procedure Date: 07/30/2025 Procedure Type: Transthoracic Echocardiogram Location: OP Height: 160.02 cm Weight: 113.4 kg BSA: 2.13 m2 Heart Rate: bpm BP: 124 / 60 mmHg Net Software Architect: [email or web address] Referring MD: Juan C Clarke NP Brick Siding Applicator: Foster Nichole MD Symptoms: I10 - Essential (primary) hypertension Study Quality: Adequate ECG Rhythm: Atrial Fibrillation Conclusions: - 1. Normal LV ejection fraction 55-60% with mild LVH with impaired relaxation filling pattern 2. Moderately dilated left atrium 3. No cardiac valvular Dopplers 4. Normal RV systolic pressure 5. No gross pericardial effusion Findings Left Ventricle Normal left ventricular size and systolic function. There is mildly increased left ventricular wall thickness. The visually estimated ejection fraction is between 55-60%. Spectral Doppler is indicative of an impaired relaxation filling pattern. E/E prime ratio is between 8 and 15 consistent with indeterminate filling pressures. Right Ventricle Normal right ventricular cavity size and systolic function. Atria The left atrium is moderately dilated. There is no evidence of interatrial shunt. The right atrium is normal in size. Aortic Valve Normal aortic valve structure and function. There is no aortic valve stenosis. There is no aortic valve regurgitation. Mitral Valve There is mild anterior and posterior mitral leaflet thickening. There is trace mitral valve regurgitation. There is no mitral valve stenosis. Pulmonic Valve The pulmonic valve is likely normal. Tricuspid Valve Normal tricuspid valve structure. There is trace tricuspid valve regurgitation. The right ventricular systolic pressure is normal. The right ventricular systolic pressure is 13 mmHg. Normal right atrial pressure. Great Vessels The aorta was not well visualized. The pulmonary artery was not well visualized. Venous The inferior vena cava is normal in size and collapses greater than 50% with inspiration. Pericardium/Pleural There is no evidence of pericardial effusion. Measurements 2D Linear Measurements IVSd: 1.27 0.6-0.9/0.6-1.0 cm LVIDd: 4.39 3.9-5.3/4.2-5.9 cm LVIDd Index: 2.06 2.4-3.2/2.2-3.1 cm/m2 LVIDs: 2.79 2.0-3.6 cm LVPWd: 1.24 0.7-1.1 cm Ao Root: 3.30 2.1-3.5 cm LA Diam: 4.10 2.7-3.8/3.0-4.0 cm LAIDs Index: 1.92 1.5-2.3 cm/m2 LV Mass: 253.66 67-162/88-224 g LV Mass Index: 119.09 43-95/49-115 g/m2 LVOT Diam: 2.30 3.0+(-)1.3 cm 2D Systolic Function EF 4C: 55.20 >55% EF 2C: 60.90 >55% EF BiP: 59.00 >55% Mitral Valve MV Pk E: 1.00 MV Decel Time: 116.00 E'Lateral: 9.03 E'Medial: 9.14 E/E' Med: 10.90 E/E' Lat: 11.10 PHT: 34.00 MVA PHT: 6.47 Decel Bond: 8.59 Aortic Valve AoV Pk Sam: 1.15 AoV Mn Sam: 0.83 AoV VTI: 0.27 AoV Pk Grad: 5.00 Aov Mn Grad: 3.00 KOBI Cont.VTI: 2.32 LVOT LVOT Pk Sam: 0.72 LVOT Mn Sam: 0.46 LVOT VTI: 0.15 LVOT Pk Grad: 2.00 LVOT Mn Grad: 1.00 LVOT Diam: 2.30 LVOT Area: 4.15 Diastolic Function MV Pk E: 1.00 E'Medial: 9.14 E/E' Med: 10.90 E' Laterial: 9.03 E/E' Lat: 11.10 Right Ventricle TAPSE (mm): 23.00 TVS' Sam: 11.00 Tricuspid Valve TR Pk Sam: 1.58 TR Pk Grad: 10.00 RA Press: 3.00 RVSP: 13.00 Great Vessels Aorta Ao Root-2D: 3.30 2.0-3.7 cm Pulmonary Valve PV Pk Sam: 0.75 Peak PV Grad: 2.00 Updated in Other Vendor System with Status of Final Foster Nichole MD electronically signed on 07/30/2025 3:15:35 PM with status of Final
== END ==
LOC: HO.CARD 07:42
PROVIDERS: PCP Physician Assistant
DX: I48.92 Unspecified atrial flutter (principal); I10 Essential (primary) hypertension; I51.7 Cardiomegaly
CPT/HCPCS: 93242; 93306

== ENCOUNTER → 2025-07-30 07:45 | Outpatient (BNV) | payer OTHER, SELFPAY | PROVIDERS: PCP Physician Assistant; Visit Provider Internal Medicine Cardiovascular Disease | DX: I51.7 Cardiomegaly (principal) | CPT/HCPCS: 93306 ==

== ENCOUNTER 2025-09-14 12:50 | Outpatient (AMB) | payer OTHER, SELFPAY ==
--- OUTSIDE RECORDS SUMMARY | 2011-08-15 | XMS_ITS | Encounter Summary ---
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
[2025-09-14 12:52] VITALS: BP 122/78; PULSE 70; BMI 46.1
--- NOTE | 2025-09-14 12:52 | A.OFFVIS_ITS ---
Vital Signs 09/14/25 12:52 Height 5 ft 4 in Weight 268 lb 8.368 oz BMI 46.1 BP 122/78 Blood Pressure Location Lt brachial Position Sitting Pulse 70 Pulse Source Pulse Oximeter Intake Visit Reasons: 2mnth/holter/echo Nursing Information Systems Coordinator Required: No Accompanied by: Spouse Allergies levofloxacin (From LEVAQUIN) Allergy (Severe, Verified 09/14/25 12:56) fall, knees give out Medication List - Last Reconciled 09/14/25 by Juan C Clarke NP aripiprazole (Abilify) 1 mg PO DAILY bupropion HCl XL (Wellbutrin XL) 300 mg PO QAM cholecalciferol (vitamin D3) 125 mcg PO DAILY lamotrigine 100 mg PO DAILY losartan 50 mg PO DAILY multivitamin 1 tab PO DAILY propranolol 20 mg PO BID rivaroxaban 20 mg PO DAILY HPI Comments Details: This is a 70-year-old female patient coming in for a follow-up visit, accompanied by her . Patient with a history of paroxysmal AFib and hypertension who was following with Dr. Nichole previously in the move to [place] but is now moved back to the area and would like to continue without care. Patient at her last visit was under a lot of stress from home searching and had a lot of palpitations. Patient was noted to be in atrial flutter during that visit however given her symptoms of increased palpitations and shortness of breath, patient underwent an echo study and a Holter monitor. Today, patient states that she has been getting short of breath with exertion and notes that her watch tells her she is persistently in AFib. Patient is otherwise denying any exertional chest pain, dizziness, orthopnea, PND, leg edema, presyncope or syncope. Patient is reporting compliance with all her medications. Patient states that her stress level under control since having found a home. 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 Chronic allergic rhinitis Pulmonary nodules Dyspnea LVH (left ventricular hypertrophy) Thoracic aortic atherosclerosis HTN (hypertension) Surgical History Hx of colonoscopy Hx of cholecystectomy Hx of section Family History Father Sudden cardiac Mother Chronic a-fib Social History Housing: House Patient Tobacco Use Status: Former Tobacco user Tobacco use type: Cigarette Years Smoked: smokes marijuana, quit cigarettes former 1ppd smoker-15 Years e-Cigarette/Vaping Use: Never Used service: No Current occupational status: retired Review of Systems Const Denies daytime sleepiness, Denies difficulty sleeping, Denies snoring, Denies stops breathing during sleep and Denies weakness Card Denies chest pain, Denies rapid heart rate, Denies irregular heart rhythm, Denies claudication, Denies leg edema, Denies lightheadedness, Denies palpitations, Denies dyspnea, Reports dyspnea on exertion, Denies orthopnea and Denies slow heart rate Resp Denies cough, Denies dyspnea, Reports dyspnea on exertion and Denies snoring GI Reports no additional complaints, Denies hematochezia, Denies change in stool character and Denies dyspepsia Musc Denies abnormal gait, Denies muscle weakness and Denies numbness Neuro Denies abnormal gait, Denies numbness and Denies weakness Endo Denies palpitations Physical Exam Vital Signs: Last Vital Signs Pulse 70 09/14/25 12:52 BP 122/78 09/14/25 12:52 BMI result Body Mass Index 46.1 Const General: cooperative, healthy appearing, comfortable and no acute distress Orientation/consciousness: patient oriented x3 HEENT Head: Yes normal to inspection Neck Neck: Yes normal visual inspection, Yes trachea midline and Yes supple Chest Chest palpation & inspection: normal inspection of the chest Resp Effort & Inspection: normal respiratory effort Auscultation: clear to auscultation bilaterally, no crackles, no rales, no rhonchi and no wheezes Cardio Jugular venous distension: no JVD Palpation: normal PMI Rate: regular rate Rhythm: abnormal rhythm irregularly irregular Heart sounds: S1 normal heart sound present, S2 normal heart sound present, no click, no gallops, no murmurs and no rubs Peripheral pulses: Peripheral pulses 2+ throughout GI Inspection: Yes normal to inspection Palpation (GI): Soft to palpation Auscultation: normal bowel sounds Skin General skin exam: no rashes or lesions noted Neuro General: patient oriented x3 Extrem General: Yes normal to inspection, No no pedal edema and No calf tenderness Psych Appearance: grossly normal Mental Status: mental status grossly normal Speech and movement: Normal speech and movement present Assessment & Plan Assessment & Plan (1) Atrial fibrillation: Code(s): I48.91 - Unspecified atrial fibrillation Category: Medical Plan: 07/30/2025-Holter study showed underlying atrial fibrillation with a average rate at 78 beats per minute, and rare ventricular ectopies. 07/30/2025-echo study showed a normal LV systolic function with an ejection fraction between 55-60% with mild LVH with impaired relaxation filling pattern, and moderately dilated left atrium. EKG previously showed atrial flutter however patient is now in persistent atrial fibrillation with good rate control. Given her symptoms of shortness of breath, we discussed in detail the options of rhythm control with antiarrhythmic, cardioversion, and/or catheter ablation. Patient would like to not be on any new medications at this time and would like to pursue catheter ablation for which we will refer patient out to EP for both atrial flutter and atrial fibrillation ablation. The procedure along with its indications, risks, and benefits was discussed with the patient. Patient understands that patient may need to go on antiarrhythmic after ablation given the fact that patient has echo showing moderately dilated left atrium which increases her recurrence. Patient verbalizes understanding. Continue Xarelto for full anticoagulation. No reported signs of bleeding. Continue propranolol. (2) Atrial flutter: Code(s): I48.92 - Unspecified atrial flutter Category: Medical Plan: As above. (3) Dyspnea: Code(s): R06.00 - Dyspnea, unspecified Category: Medical Qualifiers: Dyspnea type: dyspnea on exertion Qualified Code(s): R06.00 - Dyspnea, unspecified Plan: As above. (4) HTN (hypertension): Code(s): I10 - Essential (primary) hypertension Category: Medical Plan: Blood pressure today is well-controlled. Continue current regimen with a blood pressure goal less than 130/80. Advised on low-salt diet. Advised monitoring blood pressures. Advised on heart healthy diet, regular exercise, losing weight, med compliance, avoiding caffeinated beverages or stimulants, and aggressive management of vascular risk factors. Follow up after EP consultation. In the interim, patient will call the office with any concerns or change in symptoms. This note was generated using voice recognition software. While every effort has been made to ensure accuracy and proper delivery room supervisor, there may be occasional errors that could affect the content or meaning of the described symptoms. Orders: Referrals Cardiac Electrophysiology Referral I48.91 - Unspecified atrial fibrillation, I48.92 - Unspecified atrial flutter Coding Level of Care Code Est Pt Level 4 (58751) Add On Problem Visit Only Diagnoses Atrial fibrillation I48.91 Atrial flutter I48.92 Dyspnea on exertion R06.00 Dyspnea type: dyspnea on exertion HTN (hypertension) I10 Time Spent (min) 32 Comment Time spent in reviewing the chart, test results, assessment, counseling and documentation.
--- OUTSIDE RECORDS SUMMARY | 2025-09-14 13:53 | XMS_ITS | Clinical Summary ---
Author Organization [facility] Address [facility] [address], [address] [place] [address] Care Team Providers Care Credit Risk Analyst Name Role Phone Unavailable Primary Care Provider Unavailabl e Source Comments [facility] (Labor and Delivery) documents do not appear in the Encounter Summary [facility] Allergies No known active allergies Medications * This document contains information received from the source organization and may not represent a complete record from that organization. * Please verify current medications with patient. losartan (COZAAR) 50 mg tablet Take 1 tablet by mouth every day 12/23/2023 Active gabapentin (NEURONTIN) 300 mg capsule TAKE 1 CAPSULE TWICE DAILY. 12/23/2023 Active cholecalciferol (VITAMIN D-3) [...] by mouth in the morning. 12/23/2023 Active propranoloL (INDERAL) 10 mg tablet Take 1 tablet (10 mg) by mouth in the morning and 1 tablet (10 mg) before bedtime. 180 tablet 1 07/26/2025 Active Active Problems Problem Noted Date Diagnosed [...] therapist for counseling. Will refer to Aileen Pizarro LCSW.Recorded On: Dec 31 2024 2:40PM Recorded By: [...] the mail delivery pharmacy instead of her [facility]. She verbalized that this provider is useless and requested that her medications were refilled and sent to the correct pharmacy. It appears to this provider that medications are being sent to the [facility]' pharmacy. This provider re-sent all psychotropics [...] 23 2023 9:32AM Recorded By: NEGIN MCNAMARAmpgarrettion: dermatology referralRecorded On: Dec 23 2023 9:32AM [...] 23 2023 9:32AM Recorded By: NEGIN MCNAMARAmpression: Stable, continue current medication Xarelto. Continue to monitor.Recorded On: Dec 23 2023 9:32AM Recorded By: MAGALY MCNAMARA Obesity, class 3 ([facility]) 06/16/2025 Need for antibiotic prophylaxis [...] On: May 07 2024 1:42PM Recorded By: Elisa LAWion: Advised patient antibiotics are needed prior to [...] that medications are being sent to the [facility]' pharmacy. 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 ([facility]) 06/16/2025 Hypertensive kidney disease with chronic kidney [...] 23 2023 9:32AM Recorded By: Rosaline MCNAMARAion: BH referral, was on lorazepam in the past, will follow.Recorded On: Dec 23 2023 9:32AM Recorded By: Rosaline MCNAMARAion: referral, was on lorazepam in the past, will follow.Recorded On: Dec 23 2023 9:32AM Recorded By: Tom MCNAMARA: referral, was on lorazepam in the past, will follow.Recorded On: Dec 23 2023 9:32AM Recorded By: Tom MCNAMARA: referral, was on lorazepam in the past, [...] She would like to continue to see [facility] behavioral health for medication management services.Recorded [...] that medications are being sent to the [facility]' pharmacy. This provider re-sent all psychotropics [...] 23 2023 9:32AM Recorded By: MAGALY MCNAMARA Social History Tobacco Use Types Packs/Day Years [...] Hepatitis C Screening 1955 Osteoporosis Screening 1957 MMR Vaccine (1 of 1 - Standa rd series) 1958 Tetanus Diphtheria and Pertussis Vaccines (1 - Tdap) 1976 CT Colonography 2002 Colonoscopy 2002 Sigmoidoscopy 2002 gFOBT or FIT 2002 Pneumococcal Vaccine: 50+ Years (1 of 1 - PCV) 2007 RSV Vaccines (1 - Risk 50-74 years 1-dose series) 2007 Zoster Vaccines (1 of 2) 2007 COVID-19 Vaccine (1 - 2024-2 6 season) 2025 Influenza Vaccine (#1) 2025 05/18/2024 Colon Cancer Screening 01/06/2027 DNA-based stool test (Cologuard) 01/06/2027 01/07/2024 Diabetes Screening 11/16/2027 11/16/2024, 05/13/2024, 02/07/2024 HPV Vaccine (No Doses Required) Completed Hepatitis A Vaccine Aged Out No longe [...] A1C WITH EAG Routine 11/16/2024 1:00 AM [facility] COLORECTAL CANCER SCREEN DNA-BASED STOOL TEST SEND-OUT (COLOGUARD - [employer] ONLY) Routine 01/07/2024 1:00 AM MDT from Last 3 Months or Most Recently Relevant to Health Maintenance Results * (ABNORMAL) Hemoglobin A1c with eAG (11/16/2024 1:00 AM [facility]) Estimated Average Glucose 117 mg/dL [facility] Hemoglobin A1C 5.7(H) <5.7 % of total Hgb [facility] Comment:Performing Comments: For someone without known diabetes, a hemoglobin A1c value between 5.7% and 6.4% is consistent withprediabetes and should be confirmed with a follow-up test. For someone with known diabetes, a value <7%indicates that their diabetes is well controlled. [id number] should be individualized based on duration ofdiabetes, age, comorbid conditions, and otherconsiderations. This assay result is consistent with an increased riskof diabetes. Currently, no consensus exists regarding use ofhemoglobin A1c for diagnosis of diabetes for children. 1,5 - Anhydroglucitol 6.5 mmol/L [facility] 11/16/2024 1:00 AM [facility] 11/16/2024 1:00 AM [facility] us Jason Castaneda MD LAB BLOOD ORDERABLES Final Resul t [facility] * Colorectal Cancer Screen DNA-based stool test Send-out (Cologuard ??? [employer] Only) (01/07/2024 1:00 AM MDT) COLOGUARD RESULT Negative [facility] Comment: Performing Comments: NEGATIVE TEST RESULT. A [...] Pradhan et al, N Engl J Med 2014;370(14):5645-8749) The normal value (reference range) for this assay is negative.COLOGUARD RE-SCREENING RECOMMENDATION: Periodic colorectal cancer screening is an important part of preventive healthcare for asymptomatic individuals at average risk for colorectal cancer. Following a negative Cologuard result, the [place] Cancer Society and U.S. Multi-Society Task Force screening guidelines recommend a Cologuard re-screening interval of 3 years. References: [place] [employer] Society Guideline for Colorectal Cancer Screening: https://www.cancer.org/cancer/sgvlh-zwkxeu-kkyqye/wybfjpywo-xsyxxenws-nmlpooh/ac s-rec ommendations.html.; Yohannes DK, Rosalina CR, Shahab FelixK, Colorectal Cancer Screening: Recommendations for Physicians and Patients from the U.S. Multi-Society Task Force on Colorectal Cancer Screening , Am J Gastroenterology 2017; 112:6963-6052.TEST DESCRIPTION: Composite algorithmic analysis of stool DNA-biomarkers [...] (Wendy Beard al, N Engl J Med 2014;370(14):4826-3192.) Cologuard may produce a false negative or false positive result (no colorectal cancer or precancerous polyp present at colonoscopy follow up). A negative Cologuard test result does not guarantee the absence of CRC or advanced adenoma (pre-cancer). The current Cologuard screening interval is every 3 years. ([place] Cancer Society and U.S. Multi- Society Task Force). Cologuard performance data in a 10,000 patient pivotal study using colonoscopy as the reference method can be accessed at the following location: www.[employer]/results. Additional description of the Cologuard test process, warnings and precautions can be found at www.cologuard.com. 01/07/2024 1:00 AM MDT 01/07/2024 1:00 AM MDT us Magaly Mcnamara NP BODY FLUIDS & STOOLS ORDERABLES Final Result [employer] from Last 3 Months or Most Recently Relevant to Health Maintenance
--- OUTSIDE RECORDS SUMMARY | 2025-09-14 13:53 | XMS_ITS | Encounter Summary ---
Author Organization [facility] Address [facility] [address] [address] Phone Care Team Providers Care Assistant Executive Housekeeper Name Role Phone Sylvester Driscoll MD Unavailable [phone] Huy Ansari MD Unavailable [phone] Shady Medina MD, MS Unavailable [phone] Radha Licona PARACHUTE TAPER Unavailable [phone] Melissa Chaney PARACHUTE TAPER Unavailable [phone] Melissa Chaney PARACHUTE TAPER Primary Care Provider Unknown, Unknown Primary Care Provider Zoraida stewart Encounter Details Date Type Department Care Team (Late st Contact Info) Description 03/04/2018 Ancillary Orders [facility] [address] [place], [place] [id number] Huy Ansari MD [address] [place] [address] [email or web address] Social History Tobacco Use Types Packs/Day Years [...] documented as of this encounter Care Teams Assistant Executive Housekeeper Relationship Specialty Start Date End Date Melissa Chaney PARACHUTE TAPER [address] [place] [address] [email or web address] PCP - General Family Medicine 10/14/17 12/02/23 Unknown, Unknown, MD PCP - General 12/03/23 Sylvester Driscoll MD [address] [place] [address] [email or web address] Historical LMR Provider 07/10/17 09/30/21 Huy Ansari MD [address] [place] [phone] [email or web address] Historical LMR Provider 07/10/17 Shady Medina MD, MS [address] [place] [address] [email or web address] Historical LMR Provider 07/10/17 09/30/21 Radha Licona PARACHUTE TAPER [address] [place] [address] [email or web address] Historical LMR Provider 07/10/17 2 Melissa Chaney NP [address] [place] [address] [email or web address] Historical LMR Provider 07/10/17 documented as of this encounter Additional Source Comments The information contained in this document represents components of the legal health record. It is not the complete legal health record.[facility]
--- OUTSIDE RECORDS SUMMARY | 2025-09-14 13:53 | XMS_ITS | Encounter Summary ---
Author Organization [facility] Address [address] [place], [place] [id number] Phone Care Team Providers Care Vice President Of Consulting Services Name Role Phone Sylvester Driscoll MD Unavailable [phone] Huy Ansari MD Unavailable [phone] Shady Medina MD, MS Unavailable Radha Licona AEROBICS TEACHER Unavailable [phone] Melissa Chaney AEROBICS TEACHER Unavailable [phone] Huy Ansari MD Primary Care Provider Melissa Chaney AEROBICS TEACHER Primary Care Provider Unknown, Unknown Primary Care Provider Zoraida stewart Encounter Details Date Type Department Care Team (Latest Contact Info) Description 08/26/2017 Ancillary Orders [facility] Pulmonary, Allergy and Critical Care Medicine [address] [place] [address] Sylvester Driscoll MD [address] [address] Pneumonia of left lower lobe due to [...] documented as of this encounter Care Teams Vice President Of Consulting Services Relationship Specialty Start Date End Date Huy Ansari MD [address] [place] [address] [email or web address] PCP - General 07/11/17 10/13/17 Melissa Chaney, AEROBICS TEACHER [address] [place] [address] PCP - General Family Medicine 10/14/17 12/02/23 Unknown, Alyx, MD PCP - General 12/03/23 Sylvester Driscoll MD [address] [place] [address] [email or web address] Historical LMR Provider 07/10/17 09/30/21 Huy Ansari MD [address] [place] [address] [email or web address] Historical LMR Provider 07/10/17 Shady Medina MD, MS [address] [place] [address] [email or web address] Historical LMR Provider 07/10/17 09/30/21 Radha Licona NP [address] [place] [address] [email or web address] Historical LMR Provider 07/10/17 2 Melissa Chaney, AEROBICS TEACHER [address] [place] [address] [email or web address] Historical LMR Provider 07/10/17 documented as of this encounter Additional Source Comments The information contained in this document represents components of the legal health record. It is not the complete legal health record.[facility]
--- OUTSIDE RECORDS SUMMARY | 2025-09-14 13:53 | XMS_ITS | Encounter Summary ---
Author Organization [facility] Address [address] [place] [address] Phone Care Team Providers Care Appliquer Zigzag Name Role Phone Huy Ansari MD Unavailable [phone] Melissa Chaney SUPERVISOR CONCRETE STONE FINISHING Unavailable [phone] Melissa Chaney SUPERVISOR CONCRETE STONE FINISHING Primary Care Provider [phone] Unknown, Unknown Primary Care Provider Zoraida stewart Encounter Details Date Type Department Care Team (Late st Contact Info) Description 07/02/2023 Procedure Pass [facility] Endoscopy Admitting Dept Virtual Department [address] [place] [address] Social History Tobacco Use Types Packs/Day Years [...] high school, GED, job training, learning the [place] language, technical skills, or developing parenting skills)? [...] documented as of this encounter Care Teams Appliquer Zigzag Relationship Specialty Start Date End Date Melissa Chaney NP [address] [place] [address] PCP - General Family Medicine 10/14/17 12/02/23 Unknown, Unknown, MD PCP - General 12/03/23 Huy Ansari MD [address] [place] [address] Historical LMR Provider 07/10/17 Melissa Chaney NP [address] [place] [address] [email or web address] Historical LMR Provider 07/10/17 documented as of this encounter Additional Source Comments The information contained in this document represents components of the legal health record. It is not the complete legal health record.[facility]
--- OUTSIDE RECORDS SUMMARY | 2025-09-14 13:53 | XMS_ITS | Encounter Summary ---
Author Organization [facility] Address [facility] [employer] [place] [id number] Phone Care Team Providers Care Fuel Truck Driver Name Role Phone Sylvester Driscoll MD Unavailable [phone] Huy Ansari MD Unavailable [phone] Shady Medina MD, MS Unavailable [phone] Radha Licona GANG PUNCH OPERATOR Unavailable [phone] Melissa Chaney GANG PUNCH OPERATOR Unavailable [phone] Melissa Chaney GANG PUNCH OPERATOR Primary Care Provider [phone] Unknown, Unknown Primary Care Provider Zoraida stewart Encounter Details Date Type Department Care Team (Late st Contact Info) Description 04/16/2019 Ancillary Orders [facility],Outside Imaging [address] [place], [place] [phone] System, Provider Not In, [place] [address] Social History Tobacco Use Types Packs/Day Years [...] documented as of this encounter Care Teams Fuel Truck Driver Relationship Specialty Start Date End Date Melissa Chaney NP [address] [place] [address] [email or web address] PCP - General Family Medicine 10/14/17 12/02/23 Unknown, Unknown, PCP - General 12/03/23 Sylvester Driscoll MD [address] [place] [phone] [email or web address] Historical LMR Provider 07/10/17 09/30/21 Huy Ansari MD [address] [place] [address] [email or web address] Historical LMR Provider 07/10/17 Shady Medina MD, MS [address] [place] [phone] Historical LMR Provider 07/10/17 09/30/21 Radha Licona NP [address] [place] [address] [email or web address] Historical LMR Provider 07/10/17 2 Melissa Chaney NP [address] [place] [address] [email or web address] Historical LMR Provider 07/10/17 documented as of this encounter Additional Source Comments The information contained in this document represents components of the legal health record. It is not the complete legal health record.[facility]
--- OUTSIDE RECORDS SUMMARY | 2025-09-14 13:53 | XMS_ITS | Encounter Summary ---
Author Organization [facility] Address [address] [place] [address] Phone Care Team Providers Care Confidential Investigator Name Role Phone Sylvester Driscoll MD Unavailable [phone] Huy Ansari MD Unavailable Shady Medina MD, MS Unavailable Radha Licona CT SCAN TECH Unavailable Melissa Chaney CT SCAN TECH Unavailable [phone] SCAN TECH Primary Care Provider Unknown, Unknown Primary Care Provider Zoraida stewart Encounter Details Date Type Department Care Team (Late st Contact Info) Description 11/30/2019 Procedure Pass [facility] Endoscopy Admitting Dept Virtual Department [address] [place] [address] Social History Tobacco Use Types Packs/Day Years [...] documented as of this encounter Care Teams Confidential Investigator Relationship Specialty Start Date End Date Melissa Chaney, CT SCAN TECH [address] [place] [address] [email or web address] PCP - General Family Medicine 10/14/17 12/02/23 Unknown, Unknown, MD PCP - General 12/03/23 Sylvester Driscoll MD [address] [place] [address] [email or web address] Historical LMR Provider 07/10/17 09/30/21 Huy Ansari MD [address] [place] [address] [email or web address] Historical LMR Provider 07/10/17 Shady Medina MD, MS [address] [place] [phone] [email or web address] Historical LMR Provider 07/10/17 09/30/21 Radha Licona, CT SCAN TECH [address] [place] [address] [email or web address] Historical LMR Provider 07/10/17 2 Melissa Chaney, CT SCAN TECH [address] [place] [address] [email or web address] Historical LMR Provider 07/10/17 documented as of this encounter Additional Source Comments The information contained in this document represents components of the legal health record. It is not the complete legal health record.[facility]
--- OUTSIDE RECORDS SUMMARY | 2025-09-14 13:53 | XMS_ITS | Encounter Summary ---
Author Organization [facility] Address [address] [place] [address] Phone Care Team Providers Care Downstream Biomanufacturing Technician Name Role Phone Yolanda Driscoll MD Unavailable [phone] Huy Ansari MD Unavailable [phone] Sahdy Medina MD, MS Unavailable Radha Licona RN WOUND CARE Unavailable Melissa Chaney RN WOUND CARE Unavailable [phone] Melissa Chaney RN WOUND CARE Primary Care Provider Unknown, Unknown Primary Care Provider Zoraida stewart Encounter Details Date Type Department Care Team (Late st Contact Info) Description 03/04/2018 Ancillary Orders [facility], X-Ray - [address] [place] [address] Huy Ansari MD [address] [place] [address] Productive cough Social History Tobacco Use Types [...] No evidence of active cardiopulmonary disease. POS [id number] Narrative 03/04/2018 9:11 AM EDT Frontal and [...] No evidence of active cardiopulmonary disease. POS [id number] us Huy Ansari MD IMG XR CHEST [...] documented as of this encounter Care Teams Downstream Biomanufacturing Technician Relationship Specialty Start Date End Date Melissa Chaney, RN WOUND CARE [address] [place] [address] PCP - General Family Medicine 10/14/17 12/02/23 Unknown, Alyx, PCP - General 12/03/23 Yolanda Driscoll MD [address] [place] [address] Historical LMR Provider 07/10/17 09/30/21 Huy Ansari MD [address] [place] [address] Historical LMR Provider 07/10/17 Shady Medina MD, MS [address] [place] [address] Historical LMR Provider 07/10/17 09/30/21 Radha Licona, RN WOUND CARE [address] [place] [address] [email or web address] Historical LMR Provider 07/10/17 2 Melissa Chaney, RN WOUND CARE [address] [place] [address] Historical LMR Provider 07/10/17 documented as of this encounter Additional Source Comments The information contained in this document represents components of the legal health record. It is not the complete legal health record.[facility]
--- OUTSIDE RECORDS SUMMARY | 2025-09-14 13:53 | XMS_ITS | Patient Health Record ---
Author Organization [facility] Address [address] [place] [address] Care Team Providers Care Flour Tester Name Role Phone Melissa Chaney NP Primary Care Provider Honorio Murillo [phone] Allergies No Known Allergies Reason For Referral [...] Problem Acquired hammer toe of right foot (7323430557582 105) Other hammer toe(s) (acquired), right foot (M20.41) Active confirmed Problem Acquired hammer toe of left foot (9115238117869 103) Other hammer toe(s) (acquired), left foot (M20.42) Active confirmed Plan Of Treatment Pending Test Test Name Order Date X ray : Foot, left 3V 12/21/2020 Insurance Providers Payer Name Payer Address Payer Phone Subscriber Number Group Number Insured Name Patient Relationship to Insured Coverage Start Date Coverage End Date [facility] [address] [place] [address] [id number] Tc Wallace Spouse - patient is the spouse of the insured Medical (General) History Medical History History ICD Code chicken pox Anxiety Broken bones Scarlet fever Measles Mumps Chicken pox Arthritis - Degenerative 719.97 Arthritis - Degenerative 729.5 Pain in Limb 754.61 Flat Foot, Congenital 728.71 Plantar Fasciitis Surgical History Surgery Date(Month/Year) cholecystectomy
--- OUTSIDE RECORDS SUMMARY | 2025-09-14 13:53 | XMS_ITS | Clinical Summary ---
Author Organization [facility] Address [address] [place], [place] [phone] Phone Care Team Providers Care Worksite Wellness Practitioner Name Role Phone Huy Ansari MD Unavailable [phone] Karon Chaney NP Unavailable [phone] Unknown, Unknown Primary Care Provider Zoraida [...] this topic Medical Devices Implanted Type Area Leaflet Distributor Device Identifier Shelf Expiration Date Model / Serial / Lot Clip Hemostasis Resolution 360 Lf Nonsterile 2.8mm Channel 360deg 235cm Bx/20ea - [id number] Implanted:Qty: 1 on 11/30/2019 by Yolanda Brooke MD at [facility] [employer] [id number] / / Description:Right colon poly p at 85 Clip Hemostasis Resolution 360 Lf Nonsterile 2.8mm Channel 360deg 235cm Bx/20ea - [id number] Implanted:Qty: 1 on 11/30/2019 by Yolanda Brooke MD at [facility] [employer] [id number] / / Description:Colon polyp at 6 0 [...] EST Routine general medical examination at a [facility] care facility BI MAMMOGRAM SCREENING WITH TOMOSYNTHESIS WITH CAD (BILATERAL) Routine 04/28/2019 8:32 AM EDT Screening for breast cancer from Last 3 Months or Most Recently Relevant to Health Maintenance Results * (ABNORMAL) Comprehensive metabolic panel (06/26/2023 11:46 AM EDT) SODIUM 140 133 - 146 mmol/L [facility] POTASSIUM 4.4 3.3 - 5.1 mmol/L [facility] CHLORIDE 101 96 - 108 mmol/L [facility] CO2 32 21 - 35 mmol/L [facility] BUN 18 6 - 19 mg/dL [facility] CREATININE 0.90 0.5 - 1.5 mg/dL [facility] GLUCOSE 101(H) 70 - 99 mg/dL [facility] ALBUMIN 4.0 3.9 - 4.8 g/dL [facility] TOTAL PROTEIN 6.9 6.5 - 8.0 g/dL [facility] CALCIUM 9.7 8.4 - 10.3 mg/dL [facility] ALKALINE PHOSPHATASE 83 39 - 117 U/L [facility] TOTAL BILIRUBIN <0.2 0.0 - 1.2 mg/dL [facility] AST 27 0 - 37 U/L [facility] ALT 28 0 - 40 U/L [facility] GLOBULIN 2.9 1 - 4.8 g/dL [facility] EGFR 71 >59 mL/min/1.7 3m2 [facility] Comment:Estimated glomerular filtration rate calculated using the CKD-EPI refit equation. ANION GAP 11 10 - 20 mmol/L [facility] Blood 06/26/2023 11:4 6 AM EDT 06/26/2023 11:50 AM EDT Karon Chaney NP LAB BLOOD BKR ORDERABLES Final Result Performing Organization Address [facility] Co de Phone Number [address] [address] * (ABNORMAL) Lipid panel (06/26/2023 11:46 AM EDT) HDL 62 mg/dL [facility] Comment: Interpretation <40 mg/dL: Low HDL cholesterol (major risk factor for CHD) Greater than or equal to 60 mg/dL: High HDL cholesterol ( negative risk factor for CHD) HDL - cholesterol is affected by a number of factors, e.g. smoking, excerise, hormones, sex and age. CHOLESTEROL 197 0 - 240 mg/dL [facility] TRIGLYCERIDES 147 30 - 160 mg/dL [facility] LDL 106 50 - 129 mg/dL [facility] Comment: LDL levels in terms of risk for coronary heart disease: <100 mg/dL: Optimal 100-129 mg/dL: Near or above optimal 130-159 mg/dL: Borderline high 160-189 mg/dL: High >190 mg/dL: Very High CARDIAC RISK RATIO 3.2(L) 3.3 - 4.4 C [facility] Blood 06/26/2023 11:4 6 AM EDT 06/26/2023 11:50 AM EDT us Karon Chaney NP LAB BLOOD BKR ORDERABLES Final Result Performing Organization Address [facility]/ZIP Co de Phone Number [address] [address] * BD DXA AXIAL (SPINE) WITH HIP [...] bone mineral density was calculated at 0.830 gm/fu8fjqb a T- score of -0.2 falling within [...] IMPRESSION: Normal bone density. us Karon Chaney SURVEY STATISTICIAN IMG BD BONE DENSITY DEXA Final Result * ENDOSCOPY, COLON (11/30/2019 11:22 AM EDT) Narrative Transcriptions Yolanda Brooke MD - 11/30/2019 11:22 AM EDT Patient Name: Jocelyne Wallace Attending MD:: YOLANDA BROOKE MD Procedure Date: 11/30/2019 11:22 AM Date of : 1955 Age: 64 Admit Type: Outpatient Gender: Female Room: [place] [address] Referring MD: KARON CHANEY Exam Type: Colonoscopy [...] monitored continuously. 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 All rights reserved. The codes documented in this report are preliminary and upon splitting machine operator reviewmay be revised to meet current compliance requirements. Procedure Date: 11/30/2019 11:22:[address] [place] [address] [id number] us Karon Chaney NP GI PROCEDURE ORDERABLES Final R esult * Hepatitis C antibody, qualitative (10/20/2019 8:01 AM EST) HCV NON-REACTIV E NON-REACTI VE [facility] Blood 10/20/2019 8:01 AM EST 10/20/2019 8:06 AM EST us Karon Chaney NP LAB BLOOD BKR ORDERABLES Final Result [facility] [address] [place] [address] * BI MAMMOGRAM SCREENING WITH TOMOSYNTHESIS WITH [...] BLUE REPLACEMENT MEDICARE PART A & B [facility] MEDICARE PPO BLUE REPLACEMENT MEDICARE PART A & B [facility] MEDICARE PPO BLUE REPLACEMENT MEDICARE PART A & [place] [address] [place] [address] MEDICARE PPO BLUE REPLACEMENT MEDICARE PART A & B [facility] MEDICARE PPO BLUE REPLACEMENT Member Subscriber Plan / Payer (Ef fective 2022-Present) Name:Jocelyne Wallace Relation to Subscriber:Self Name:Jocelyne Wallace Payer ID:[id number] (NAIC) Type:Medicare Address: [place] [phone] Care Teams Worksite Wellness Practitioner Relationship Specialty Start Date End Date Unknown, Unknown, MD PCP - General 12/03/23 Huy Ansari MD [address] [place] [address] [email or web address] Historical LMR Provider 07/10/17 Karon Chaney NP [address] [place] [address] [email or web address] Historical LMR Provider 07/10/17 Additional Source Comments The information contained in this document represents components of the legal health record. It is not the complete legal health record.[facility]
== END 2025-09-14 13:24 | disposition home or self-care (01) ==
LOC: HO.HCS 12:50
DX: I48.91 Unspecified atrial fibrillation (principal); I48.92 Unspecified atrial flutter; R06.00 Dyspnea, unspecified; I10 Essential (primary) hypertension
CPT/HCPCS: 99214; G2211